=== PATIENT | male | born 1955 | race Caucasian/White ===

== ENCOUNTER 2023-04-05 09:30 | Outpatient (RCR) | payer MEDICARE, BC, SELFPAY | END 2023-04-17 07:38 | disposition home or self-care (01) | PROVIDERS: PCP Family Medicine; Visit Provider Family Medicine | DX: M54.16 Radiculopathy, lumbar region (principal); M51.36 Other intervertebral disc degeneration, lumbar region; M25.551 Pain in right hip; G89.29 Other chronic pain; M25.60 Stiffness of unspecified joint, not elsewhere classified; M62.81 Muscle weakness (generalized); Z51.89 Encounter for other specified aftercare | CPT/HCPCS: 97110; 97140; 97161 ==

== ENCOUNTER 2023-05-01 08:26 | Outpatient (CLI) | payer MEDICARE, BC, SELFPAY | END 2023-05-01 08:27 | disposition home or self-care (01) | LOC: INJ CL 08:28 | PROVIDERS: PCP Family Medicine; Visit Provider Family Medicine | DX: M51.36 Other intervertebral disc degeneration, lumbar region (principal); M54.16 Radiculopathy, lumbar region; M51.26 Other intervertebral disc displacement, lumbar region | CPT/HCPCS: 62323; J0702; Q9966 ==

== ENCOUNTER 2023-07-11 09:00 | Outpatient (RCR) | payer MEDICARE, BC, SELFPAY | END 2023-11-08 23:59 | disposition home or self-care (01) | PROVIDERS: PCP Family Medicine; Visit Provider Internal Medicine | DX: C61 Malignant neoplasm of prostate (principal); N39.41 Urge incontinence; R27.8 Other lack of coordination; Z51.89 Encounter for other specified aftercare | CPT/HCPCS: 97110; 97140; 97162; 97535 ==

== ENCOUNTER 2023-08-23 20:54 | Outpatient (CLI) | payer MEDICARE, BC, SELFPAY | END 2023-08-23 20:55 | disposition home or self-care (01) | LOC: SLEEP 20:56 | PROVIDERS: PCP Family Medicine; Visit Provider Registered Nurse | DX: G47.33 Obstructive sleep apnea (adult) (pediatric) (principal); R09.02 Hypoxemia | CPT/HCPCS: 95811 ==

== ENCOUNTER 2023-10-01 21:55 | Inpatient (IN) | payer MEDICARE, BC, SELFPAY ==
[2023-10-01] VITALS (7 sets, daily range): BP systolic 112–128; BP diastolic 72–83; PULSE 90–107; RESP 14; TEMP 36.6; O2SAT 75–95; BMI 44.5
--- NOTE | 2023-10-01 22:21 | CRLHL7_ITS ---
For Patients: As a result of the Century Cures Act, medical imaging exams and procedure reports are released immediately into your electronic medical record. You may view this report before your referring provider. If you have questions, please contact your health care provider. INDICATION: Chest pain, shortness of breath. TECHNIQUE: Chest 1 view. COMPARISON: 12/18/2021. FINDINGS: Cardiovascular and mediastinum: Heart size and vasculature are normal in caliber and appearance. Lungs and pleural spaces: Bibasilar hazy opacities. No large pleural effusion. No pneumothorax. Bones and soft tissues: No significant findings. IMPRESSION: Bibasilar hazy opacities, favored to represent atelectasis. Dictated by Tremaine Sepulveda MD @ 10/01/2023 11:34:41 PM (Electronically Signed)
--- OUTSIDE RECORDS SUMMARY | 2023-10-01 22:27 | XMS_ITS ---
Author Name Unknown Organization [facility] Address [address] [place] [address] Care Team Providers Care Analytical Clerk Name Role Phone Unavailable Unavailable Unavailable Surgery Details Not on file Complications Check Surgery Details section. Procedure Estimated Blood Loss Check Surgery Details section. Procedure Findings Check Surgery Details section. Procedure Specimens Taken Check Surgery Details section.
--- OUTSIDE RECORDS SUMMARY | 2023-10-01 22:27 | XMS_ITS ---
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 Past Plans No past plan information found. Radiation Treatments * Plan Last Treated On Elapsed Days Fractions Treated Prescribed Fraction Dose Prescribed Total Dose [id number] 03/27/2022 27 20 of 20 300 cGy 6,000 cGy Reference Point Last Treated On Elapsed Days Session Dose Total Dose [id number] 03/27/2022 27 300 cGy 6,000 cGy
--- OUTSIDE RECORDS SUMMARY | 2023-10-01 22:27 | XMS_ITS | Encounter Summary ---
Author Name Unknown Organization [facility] Address [address] [place] [id number] Care Team Providers Care Diesel Engine Tester Name Role Phone Elsewhere, Pcp Primary Care Provider Unavailabl e Encounter Details Date Type Department Care Team (Latest Contact Info) Description 09/10/2023 7:09 AM OPERATIONS PROGRAM MANAGER - 09/10/2023 11:59 PM OPERATIONS PROGRAM MANAGER Hospital Encounter Department of Laboratory Medicine and Pathology, [facility], in [place], [place] [address] [place] [address] Anabel Cunningham P.A.-C., M.S. [address] [place] [address] Primary Malignant Neoplasm Of Prostate (HCC) Discharge Disposition: Home or Self Care Social History Tobacco Use Types Packs/Day Years Used Date Smoking Tobacco: Never Passive Smoke Exposure: Past Smokeless Tobacco: Never Passive Exposure Comments:Pa rents Alcohol Use Standard Drinks/Week Comments Yes 0 (1 standard drink = 0.6 oz pur e alcohol) occasional Humiliation, Afraid, Rape, and Kick questionnair e Answer Date Recorded Within the last year, have y ou been afraid of your partner or ex-partner? No 09/20/2022 Within the last year, have y ou been humiliated or emotionally abused in other ways by your partner or ex-partner? No Within the last year, have y ou been kicked, hit, slapped, or otherwise physically hurt by your partner or ex-partner? No 09/20/2022 Within the last year, have y ou been raped or forced to have any kind of sexual activity by your partner or ex-partner? No 09/20/2022 Social Connection and Isolat ion Panel [NHANES] Answer Date Recorded In a typical week, how many times do you talk on the phone with family, friends, or neighbors? Three times a week 09/20/2022 How often do you get togethe r with friends or relatives? Once a week 09/20/2022 How often do you attend chur ch or judaism services? Patient declined 09/20/2022 Do you belong to any clubs o r organizations such as gnosticism groups, unions, fraternal or athletic groups, or school groups? Yes 09/20/2022 How often do you attend meet ings of the clubs or organizations you belong to? More than 4 times per year 09/20/2022 Are you , , di vorced, , never , or living with a partner? 09/20/2022 AUDIT-C Answer Date Recorded Q1: How often do you have a drink containing alc ohol? 2-4 times a month 09/20/2022 Q2: How many drinks containi ng alcohol do you have on a typical day when you are drinking? 1 or 2 09/20/2022 Q3: How often do you have si x or more drinks on one occasion? Never 09/20/2022 Overall Financial Resource Strain (CARDIA) Answe r Date Recorded How hard is it for you to pa y for the very basics like food, housing, medical care, and heating? Not hard at all 09/20/2022 [facility] of Occupat ional Health - Occupational Stress Questionnaire Answer Date Recorded Do you feel stress - tense, restless, nervous, or anxious, or unable to sleep at night because your mind is troubled all the time - these days? Only a little 09/20/2022 Exercise Vital Sign Answer Date Recorde d On average, how many days pe r week do you engage in moderate to strenuous exercise (like a brisk walk)? 3 days 09/20/2022 On average, how many minutes do you engage in exercise at this level? 20 min 09/20/2022 Hunger Vital Sign Answer Date Recorded Within the past 12 months, y ou worried that your food would run out before you got the money to buy more. Never true 09/20/19 23 Within the past 12 months, t he food you bought just didn't last and you didn't have money to get more. Never true 09/20/2022 PRAPARE - Transportation Answer Date Re corded In the past 12 months, has l ack of transportation kept you from medical appointments or from getting medications? No 08/28 In the past 12 months, has l ack of transportation kept you from meetings, work, or from getting things needed for daily living? No 09/20/2022 Housing Stability Vital Sign Answer Jasson e Recorded In the last 12 months, was t here a time when you were not able to pay the mortgage or rent on time? No 09/20/2022 In the last 12 months, how many places have you lived? 1 09/20/2022 In the last 12 months, was t here a time when you did not have a steady place to sleep or slept in a detention (including now)? No 09/20/2022 Nutrition Answer Date Recorded Nutrition: EVOO Fat Source Yes 09/20 On average, how many serving s of fruits and vegetables do you eat per day (serving size is equal to 1 cup or approximately the size of a tennis ball)? 0-1 09/20/2022 Dental Answer Date Recorded Dental: Regular Dentist Yes 03/12/20 Employment Answer Date Recorded Employment status Retired 09/20/2022 Education Answer Date Recorded What is the highest level of school you have completed or the highest degree you have received? 12th grade 03/12/2022 Sex and Gender Information Value Date Recorded Sex Assigned at Male 03/12/2022 6:57 PM CDT Gender Identity Male 03/12/2022 6:57 PM CDT Sexual Orientation Straight 03/12/2022 6: 57 PM CDT documented as of this encounter Medications at Time of Discharge Medication Sig Dispensed Refills Start Date End Date cholecalciferol, vitamin D3, 25 mcg (1,000 Unit) tablet Take 1 tablet by mouth daily. 0 04/05/2010 gabapentin (NEURONTIN) 300 mg capsule Take 300 mg by mouth at bedtime. 0 02/01/2023 levothyroxine (SYNTHROID, LEVOTHROID) 175 mcg tablet Take 175 mcg by mouth every morning before breakfast. 0 07/31/2022 sildenafiL (Viagra) 100 mg tablet Take 0.5-1 tablets (50-100 mg total) by mouth as needed for erectile dysfunction. 10 tablet 3 09/25/2022 Xarelto 20 mg tablet Take 20 mg by mouth daily with dinner. 0 08/28/2022 documented as of this encounter Plan of Treatment Scheduled Orders Name Type Priority Associated Diagnoses Orde r Schedule PSA (Prostate-Specific Antigen), Diagnostic Lab Routine Primary Malignant Neoplasm Of Prostate (HCC) Once for 1 Occurrences starting 09/10/2023 until 09/10/2023 Testosterone, Total by Mass Spectrometry, Serum Lab Routine Primary Malignant Neoplasm Of Prostate (HCC) Once for 1 Occurrences starting 09/10/2023 until 09/10/2023 documented as of this encounter Visit Diagnoses Diagnosis Primary Malignant Neoplasm Of Prostate (HCC) documented in this encounter Care Teams Diesel Engine Tester Relationship Specialty Start Date End Date Elsewhere, Pcp PCP - General Family Medicine 04/06/23 documented as of this encounter
--- OUTSIDE RECORDS SUMMARY | 2023-10-01 22:27 | XMS_ITS | Referral Summary ---
Author Name Unknown Organization [facility] Address [address] [place] [address] Care Team Providers Care Business Analytics Analyst Name Role Phone Elsewhere, Pcp Primary Care Provider Unavailabl e Source Comments Patient records contain information from all sites at [facility]. For routine questions regarding patient records, call [phone] during business hours, M-F 8:00 AM - 5:00 PM Central Time. Record requests for emergency care only can be directed to [phone] at any time.[facility] Encounters Date Type Department Care Team Description 10/01/2023 Clinical Communication Department of Radiation Oncology in [place], [place] [address] [place] [address] Keith Lua M.D. 09/10/2023 7:09 AM FIELD HAULER - 09/10/2023 11:59 PM FIELD HAULER Hospital Encounter Department of Laboratory Medicine and Pathology, [facility], in [place], [place] [address] [place] [address] Anabel Cunningham P.A.-C., M.S. Primary Malignant Neoplasm Of Prostate (HCC) Discharge Disposition: Home or Self Care 07/02/2023 Orders Only Department of Sleep Medicine in [place], [place] [address] [phone] Chanel Senior APRN, C.N.P., D.N.P., M.S.N. 07/02/2023 Orders Only Department of Internal Medicine in [place], [place] [address] [place] [phone] Chanel Senior APRN, C.N.P., D.N.P., M.S.N. from Last 3 Months Allergies No known active allergies Medications Medication Sig Dispensed Refills Start Date End Date Status cholecalciferol, vitamin D3, 25 mcg (1,000 Unit) tablet Take 1 tablet by mouth daily. 0 04/05/2010 Active Xarelto 20 mg tablet Take 20 mg by mouth daily with dinner. 0 08/28/2022 Active sildenafiL (Viagra) 100 mg tablet Take 0.5-1 tablets (50-100 mg total) by mouth as needed for erectile dysfunction. 10 tablet 3 09/25/2022 Active gabapentin (NEURONTIN) 300 mg capsule Take 300 mg by mouth at bedtime. 0 02/01/2023 Active levothyroxine (SYNTHROID, LEVOTHROID) 175 mcg tablet Take 175 mcg by mouth every morning before breakfast. 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 Hypothyroidism 12/26/2006 Primary Malignant Neoplasm Of Prostate Cancer Staging:Clinical stage from 11/28/2021:Stage IIC(cT1c, cN0, cM0, PSA: 9.4, Grade Group: 3) - Unsigned Immunizations Name Administration Dates Next Due Influenza (IM) Preservative Free 08/02/2009 Influenza TIV (IM) 06/27/2011,06/24/2010, 009 Influenza, Injectable, Mdck, Preservative Free, Quadrivalent 08/19/2021 Influenza, Quadrivalent, Adj uvanted, Preservative Free 06/22/2022 Influenza, Seasonal, Injectable 06/27/2011 Influenza, Unspecified 05/28/2021 PCV20 07/31/2022 Pneumococcal, Unspecified 05/28/2020 RZV (SHINGRIX) 08/04/2019,05/28/2019 Td, (Adult) Unspecified 07/07/1997 Tdap 03/11/2018,04/01/2008 influenza vaccine quad (FLUZONE/FLUARIX) (6 months and older)(PF) 08/09/2020,05/28/2019,07/24/2016,2014 Social History Tobacco Use Types Packs/Day Years Used Date Smoking Tobacco: Never Passive Smoke Exposure: Past Smokeless Tobacco: Never Tobacco Cessation:Counseling Given: Not Answered Passive Exposure Comments:Parents Alcohol Use Standard Drinks/Week Comments Yes 0 [...] week 09/20/2022 How often do you attend [facility] or gnosticism services? Patient declined 09/20/2022 Do you belong to any clubs o r organizations such as presybeterian groups, unions, fraternal or athletic groups, or [...] and heating? Not hard at all 09/20/2022 [facility] [place] of Occupat ional Health - Occupational Stress [...] money to buy more. Never true 09/20/19 Within the past 12 months, t he [...] place to sleep or slept in a senior care (including now)? No 09/20/2022 Nutrition Answer Date [...] Orientation Straight 03/12/2022 6: 57 PM CDT Last Filed Vital Signs Vital Sign Reading Time Taken Comments Blood Pressure 117/73 04/24/2023 2:41 PM CDT Pulse 75 04/24/2023 2:41 PM CDT Temperature 36.7 ??C (98 ??F) 04/24/2023 2:41 PM CDT Respiratory Rate - - Oxygen Saturation - - Inhaled Oxygen Concentration - - Weight 154 kg (339 lb 15.2 oz) 04/24/2023 2:41 P M CDT Height - - Body Mass Index - - Plan of Treatment Not on file Medical Devices Implanted Type Area Construction Analyst Device Identifier Shelf Expiration Date Model / Serial / Lot Eyelid Weight Eyelid Weight Left: Eyelid Description:Weight Mesh Or Patch Mesh or Patch Umbilical Description:Hernia Repair Ocular Lens Ocular Lens Left: Eye Care Teams Business Analytics Analyst Relationship Specialty Start Date End Date Elsewhere, Pcp PCP - General Family Medicine 04/06/23
--- OUTSIDE RECORDS SUMMARY | 2023-10-01 22:27 | XMS_ITS | Encounter Summary ---
Author Name Unknown Organization [facility] Address [address] [place] [address] Care Team Providers Care Compress Trucker Name Role Phone Elsewhere, Pcp Primary Care Provider Unavailabl e Encounter Details Date Type Department Care Team (Late st Contact Info) Description 07/02/2023 Orders Only Department of Internal Medicine in [place], [place] [address] [phone] Chanel Senior APRN, C.N.P., D.N.P., M.S.N. [address] [place] [phone] Social History Tobacco Use Types Packs/Day Years [...] often do you attend chur ch or anglican services? Patient declined 09/20/2022 Do you belong to any clubs o r organizations such as sabianism groups, unions, fraternal or athletic groups, or [...] and heating? Not hard at all 09/20/2022 [facility] [place] of Occupat ional Health - Occupational Stress [...] place to sleep or slept in a care home (including now)? No 09/20/2022 Nutrition Answer Date [...] PM CDT documented as of this encounter Plan of Treatment Not on file documented as of this encounter Visit Diagnoses Not on filedocumented in this encounter Care Teams Compress Trucker Relationship Specialty Start Date End Date Elsewhere, Pcp PCP - General Family Medicine 04/06/23 documented as of this encounter
--- OUTSIDE RECORDS SUMMARY | 2023-10-01 22:27 | XMS_ITS | Encounter Summary ---
Author Name Unknown Organization [facility] Address [address] [place] [address] Care Team Providers Care Delivery Tech Name Role Phone Elsewhere, Pcp Primary Care Provider Unavailabl e Reason for Visit * Appointment Request (Routine) - Closed Specialty Diagnoses / Procedures Referred By Katlin t Referred To Contact Sleep Medicine Referral ID Status Reason Start Date Expiration Date Visits Re quested Visits Authorized [id number] Closed 01/31/2023 01/31/2024 1 1 Encounter Details Date Type Department Care Team (Latest Contact Info) Description 04/24/2023 2:45 PM CDT Comprehensive Visit Department of Sleep Medicine in [place], [place] [address] [phone] Chanel Senior APRN, C.N.P., D.N.P., M.S.N. [address] [phone] Obstructive Sleep Apnea Adult (Primary Dx); Embolus Pulmonary Personal History; Chronic Cough Social History Tobacco Use Types Packs/Day Years [...] 09/20/2022 How often do you attend chur or jewish services? Patient declined 09/20/2022 Do you belong to any clubs o r organizations such as restoration groups, unions, fraternal or athletic groups, or [...] and heating? Not hard at all 09/20/2022 [facility] [place] of Occupat ional Health - Occupational Stress [...] place to sleep or slept in a fpc (including now)? No 09/20/2022 Nutrition Answer Date [...] PM CDT documented as of this encounter Last Filed Vital Signs Vital Sign Reading [...] - - Body Mass Index - - documented in this encounter Patient Instructions * Patient Instructions* Chanel Senior APRN, C.N.Brandi., RellN.P., M.S.N. - 04/24/2023 2:45 PM CDT -Recommend connecting with your primary care provider about cough and response to nebulizer. You likely would benefit from a formal pulmonary function test and possibly chest CT to rule out residual asthma with your history or bronchiectasis since you did have some thickening of the servin of the upper airway on your last chest xray. -Your BiPAP download looks excellent! Residual apneic events are in range. Usage is excellent. Keepup the great work! -Schedule overnight oximetry at your convenience. I'll contact you with results once available. -I'll send updated prescription for supplies to [employer]. -Otherwise follow up in 1 year. documented in this encounter Progress Notes * Chanel Senior APRN, C.N.P., Byron.N.P., M.S.N. - 04/24/2023 2:45 PM CDT SUBJECTIVE CHIEF COMPLAINT / REASON FOR VISIT No chief complaint on file. HISTORY OF PRESENT ILLNESS rAnel Ng is a 67 y.o. male who presents today in followup of his obstructive sleep apnea. He haspreviously followed at an outside facility for this condition. He states that he was originally diagnosed with obstructive sleep apnea in the late . Details surrounding that diagnosis are not available. He was placed on a PAP machine and has been using it since then. 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 He had subsequent collapse of the nasalpassages that required reconstructive surgery and he reports that afterward, perhaps about 4 years ago, he underwent repeat polysomnogram at the [facility] to evaluate how this potentially impacted his sleep apnea. He reports that he was told there was no significant change in his pressureneeds at that time, but he did receive a new machine that did seem to deliver air little differently. He is not aware of any pressure changes since that time. He does report that he was diagnosed with PE and DVT in 2021. He was requiring supplemental oxygen up to 4 L per nasal cannula after that point. He has since discontinued oxygen but has not pursued repeat overnight oximetry without oxygen since then. His current machine is about 4 years old and he was told by his supplier, [employer] in [place],that he would be a candidate for a replacement machine in the summer of 2023. His current machine however was not functioning properly so that is actually being repaired as we speak and he is on a loaner machine. He is using an over the nose style full face mask which he finds to be comfortable. Herecently switched from a large size to a medium-size. The seal seems to be little better but it does seem more tight on the bridge of his nose so he is considering going back to the large size. Air pressure feels comfortable. He feels that he sleeps well at night with his machine. No known snoring through his mask. We were able to run a download report from his loaner machine which shows 100% compliance over the past 26 days with an average daily usage of 8 hours and 12 minutes. BiPAP S is set at 14/9. Median leaks are 4.7 liters/minute with a 95th percentile of 12.7. Residual AHI is 0.3 with 0.2 central episodes. He also states that he has been dealing with a cough for several months. He has been working with his PCP in regards to his swallow, but his daughter had some albuterol and a nebulizer that he tried while he was experiencing the cough. This really gave him good relief. With the use of albuterol hiscoughing has significantly improved. OBJECTIVE Blood pressure 117/73, pulse 75, temperature 36.7 ??C, temperature source Temporal, weight (!) 154 kg. PHYSICAL EXAMINATION General: Alert, pleasant male appearing in no acute distress. Responds appropriately to questions and contributes meaningfully to conversation. He has chronic facial palsy. He is accompanied by his today. ASSESSMENT / PLAN #1 Obstructive Sleep Apnea Adult #2 Embolus Pulmonary Personal History He continues to use and benefit from BiPAP. His compliance is excellent, residual events very low, and he gets good symptomatic relief with therapy. Prescription will be sent to his supplier, [facility] in [place], for replacement supplies. He will be a candidate for a new machine in 2023. We will pursue overnight oximetry with BiPAP in place to ensure resolution of his nocturnal hypoxia afterrecovering from his PE. He is not terribly interested in resuming oxygen should it be needed. #3 Chronic Cough He has had relief with the use of his daughter's albuterol nebulizer. He does not have a personal history of smoking, but does report history of asthma. He also knows that he is deconditioned. Chest x-ray in November showed some thickening of the bronchial servin. Recommended he discuss further with his PCP, as he may benefit from dedicated chest CT or pulmonary function test to rule out bronchiectasis, persistent asthma, or other condition that would be contributing to his cough and potential benefit of nebulized saline or bronchodilator for himself. We will be in touch with his oximetry results once available, otherwise follow- up in 1 year or sooner if needed. A new prescription for supplies will be required annually and insurance will typicallycover a new machine every 5 years. The patient and his verbalized understanding of the plan ofcare and was in agreement. All questions were answered today. documented in this encounter Plan of Treatment Not on file documented as of this encounter Results * PUL Home Overnight Oximetry (06/27/2023 2:28 PM CDT) 06/25/2023 Impressions SONDRA HUNT - 06/28/2023 3:00 PM CDT Overnight oximetry was performed on room air without the use of an assisted breathing device. ??The baseline saturation is reduced. ??There was increased oscillatory variation about the baseline with further periodic oscillatory desaturations, with a minimum saturation of 72%. Impression: ??Abnormal baseline suggestive of a gas exchange abnormality. ??The pattern is suggestive of a concurrent sleep related breathing disorder. Physician: Jackie Chinchilla M.D. [id number] Narrative Procedure Note Jackie Chinchilla M.D. - 06/28/2023 IMPRESSION: Overnight oximetry was performed on room air without the use of anassisted breathing device. The baseline saturation is reduced. There wasincreased oscillatory variation about the baseline with further periodicoscillatory desaturations, with a minimum saturation of 72%. Impression: Abnormal baseline suggestive of a gas exchange abnormality.The pattern is suggestive of a concurrent sleep related breathingdisorder. Physician: Jcakie Chinchilla M.D. [id number] Chanel Senior APRN, C.N.P., D.N.P., M.S. N. PFT ORDERABLES [facility] documented in this encounter Visit Diagnoses Diagnosis Obstructive Sleep Apnea Adult- Primary Embolus Pulmonary Personal History Chronic Cough Obstructive Sleep Apnea Adult documented in this encounter Care Teams Delivery Tech Relationship Specialty Start Date End Date Elsewhere, Pcp PCP - General Family Medicine 04/06/23 documented as of this encounter
--- OUTSIDE RECORDS SUMMARY | 2023-10-01 22:27 | XMS_ITS | Encounter Summary ---
Author Name Unknown Organization [facility] Address [address] [place] [address] Care Team Providers Care Developmental Specialist Name Role Phone Elsewhere, Pcp Primary Care Provider Unavailabl e Reason for Referral * Outpatient (Routine) - Authorized Specialty Diagnoses / Procedures Referred By Katlin flores Referred To Contact Radiation Oncology Anabel Cunningham P.A.-C., M.S. [address] [place] [phone] Keith Lua M.D. [address] [place] [phone] Referral ID Status Reason Start Date Expiration Date V isits Requested Visits Authorized [id number] Authorized 04/10/2023 04/09/2026 1 1 Scheduling Instructions PSA mail-in kit prior * Outpatient (Routine) - Closed Specialty Diagnoses / Procedures Referred By Katlin t Referred To Contact Radiation Oncology Anabel Cunningham P.A.-C., M.S. [address] [place] [phone] [facility] Region Referral ID Status Reason Start Date Expiration Date Visits Re quested Visits Authorized [id number] Closed 09/25/2022 09/24/2025 1 1 Scheduling Instructions PSA prior at [facility] Reason for Visit * Outpatient (Routine) - Closed Specialty Diagnoses / Procedures Referred By Contac t Referred To Contact Radiation Oncology Anabel Cunningham P.A.-C., M.S. 200 [place] [phone] [facility] Region Referral ID Status Reason Start Date Expiration Date Visits Re quested Visits Authorized [id number] Closed 09/25/2022 09/24/2025 1 1 Encounter Details Date Type Department Care Team (Latest Contact Info) Description 04/10/2023 10:44 AM CDT - 04/12/2023 1:18 PM CDT Hospital Encounter Department of Radiation Oncology in [place], [place] [address] [place] [address] Keith Lua M.D. 200 [place] [phone] Primary Malignant Neoplasm Of Prostate (HCC) (Primary Dx) Social History Tobacco Use Types Packs/Day Years [...] How often do you attend chur or congregation services? Patient declined 09/20/2022 Do you belong to any clubs o r organizations such as sabianist groups, unions, fraternal or athletic groups, or [...] and heating? Not hard at all 09/20/2022 [facility] [place] of Occupat ional Health - Occupational Stress [...] place to sleep or slept in a [facility] (including now)? No 09/20/2022 Nutrition Answer Date [...] Sign Reading Time Taken Comments Blood Pressure 136/69 04/10/2023 10:52 AM CDT Pulse 79 04/10/2023 10:52 AM CDT Temperature 36.7 ??C (98 ??F) 04/10/2023 10:52 AM CDT Respiratory Rate - - Oxygen Saturation - - Inhaled Oxygen Concentration - - Weight 154 kg (340 lb 6.2 oz) 04/10/2023 10:52 A M CDT Height - - Body Mass Index - - documented in this encounter Medications at Time of Discharge [...] by mouth daily with dinner. 0 08/28/2022 amoxicillin (AMOXIL) 500 mg capsule TAKE 2 CAPSULES (1,000 MG) BY MOUTH 2 TIMES DAILY FOR 10 DAYS. 0 01/16/2022 04/24/2023 calcium carbonate-vitamin D3 1,250 mg (500 mg calcium)-5 mcg (200 Unit) per tablet Take 2 tablets by mouth daily with breakfast. 0 04/24/2023 Eliquis 5 mg tablet TAKE 1 TABLET (5 MG) BY MOUTH 2 TIMES DAILY. 0 01/16/2022 04/24/2023 levothyroxine (SYNTHROID, LEVOTHROID) 150 mcg tablet levothyroxine 150 mcg tablet TAKE 1 TABLET BY MOUTH ONCE DAILY BEFORE BREAKFAST 0 05/28/2019 04/24/2023 omeprazole (PriLOSEC) [address] capsule Take 10 mg by mouth every morning before breakfast. 0 04/24/2023 omeprazole (PriLOSEC) [address] capsule Take 40 mg by mouth every morning before breakfast. 0 02/14/2023 04/24/2023 documented as of this encounter Progress Notes * Anabel Cunningham P.A.-C., M.S. - 04/10/2023 11:00 AM CDT SUBJECTIVE DIAGNOSIS 1. Primary Malignant Neoplasm Of Prostate (HCC) SUPERVISED BY: Keith Lua M.D. ([id number]) HISTORY OF PRESENT ILLNESS Mr. 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 He completed definitive radiotherapy with a 6 month course of ADT on March 27, 2022. 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 Pathology demonstrated perineural invasion and positive margin. Local lymph nodes resected were n egative. Neutron radiation therapy to a dose of 19.2 NGy in 16 fractions from November 10, 1997 through December 04, 1997 at [facility]. Primary Malignant Neoplasm Of Prostate (HCC) 02/21/2017 Other 02/21/2017: PSA 3.46 ng/mL 02/23/2018: PSA 4.41 ng/mL 10/08/2018: PSA 4.05 ng/mL 08/06/2020: PSA 6.39 ng/mL 08/15/2021: PSA 9.41 ng/mL 09/26/2021: PSA 9.41 ng/mL 04/22/2018 Critical Imaging MRI of the prostate demonstrated mild prostatomegaly with the prostate gland measuring 5.8 x 4.2 x 3.7 cm for an estimated volume of 45 mL. Stigmata of acute on chronic prostatitis. No suspicious lesions detected. 10/03/2021 Other Urology consultation with Dr. Prince Escobar. physical examination was normal. 10/11/2021 Critical Imaging MRI of the prostate demonstrated a stable exam. Mild prostatomegaly with BPH and prior prostatitis.No suspicious lesions detected. No arden transcapsular, natalee, or skeletal disease in the pelvis. 11/28/2021 Biopsy/Pathology TRUS biopsy of the prostate was performed by Dr. Escobar. Prostate volume was approximately 40 cc. PATHOLOGY: Adenocarcinoma, Meridian 4+3=7 (grade group 3) was identified in the right lateral mid (5-10%), right lateral base (50%, perineural invasion present), and left medial apex (50%). Rare atypical acini (KWADWO) was identified in the right lateral apex and left lateral mid. The remaining biopsies demonstrated benign prostatic tissue. 3 of 12 cores were positive. 01/05/[address] Escobar who discussed treatment options. The patient received a Lupron 45 mg (6month) injection. Referral to Radiation Oncology. 02/28/2022 - 03/27/2022 Radiation Therapy Radiation therapy to the prostate and proximal seminal vesicles to a dose of 6000 cGy in 20 fractions. Radiation Therapy Treatment Details (02/28/2022 - 03/27/2022) Site: Prostate Technique: IMRT Goal: Curative Planned Treatment Start Date: 02/28/2022 06/15/2022 Other 06/15/2022: PSA 0.11 ng/mL 09/18/2022: PSA <0.1 ng/mL 10/03/2022: PSA <0.1 ng/mL. Testosterone total 26 ng/dL. 03/30/2023: PSA 0.11 ng/mL INTERVAL HISTORY The patient was seen and examined today with Dr. Lua. The patient reports fatigue rated 7/10 in severity. He reports stable urination overall. He reportsurinary urgency. He has performed Kegel exercises occasionally without noticeable improvement. He reports urinary incontinence approximately one time per week. He does not wear a pad. He reports thathis urination is overall manageable at this time. He denies dysuria or hematuria. He has nocturia x2. He averages two bowel movements per day. He denies rectal bleeding. He reports taking Metamucil.He reports stable body aches and denies new bone pain. He reports that tried taking sildenafil two to three times and he was able to have an erection and intercourse with the medication. AUA SYMPTOM INDEX: 01/25/22: 4 09/25/22: 6 (0, 1, 1, 1, 1, 0, 2) 04/10/23: 17 (3, 3, 4, 2, 3, 0, 2) IIEF-5 QUESTIONNAIRE: 01/25/22: 5 09/25/22: 5 (1, 1, 1, 1, 1) - severe erectile dysfunction 04/10/23: 10 (2, 2, 2, 2, 2) - moderate erectile dysfunction REVIEW OF SYSTEMS Review of systems was negative except as documented above. PATIENT REPORTED SYMPTOM SCREEN FATIGUE (Scale: 0 = no fatigue; 10 = worst fatigue you can imagine): 7 PAIN (Scale: 0 = no pain; 10 = worst pain you can imagine): 3 OVERALL QUALITY OF LIFE (Scale: 0 = as bad as can be; 10 = as good as can be): 5 OBJECTIVE BP 136/69 (BP Location: Right arm, Patient Position: Sitting, Cuff Size: Large) Pulse 79 Temp 36.7 ??C (Temporal) Wt (!) 154 kg PHYSICAL EXAM GENERAL: Alert and oriented in no apparent distress. 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 We reviewed his recent PSAresult of 0.11 ng/mL. He reports stable urination with incontinence one time per week on average. We discussed the option of referral for pelvic floor retraining, but he declined at this time. We reviewed the recommendation for continued PSA monitoring every 6 months at this time. The patient was agreeable to use of a mail-in PSA kit, which he will take to [facility] in [place]. I will order for a PSA and testosterone lab draw to be done in 6 months. The patient will be contacted with theresults. We will then plan on continued PSA monitoring every 6 months, with the patient being contac meredith with the result by our care team, and then a follow-up visit to be scheduled here in 2 years, March 2025. The patient will contact us with questions or concerns. He verbally expressed his understanding of the plan. EDUCATION Ready to learn, no apparent learning barriers were identified; learning preferences include listening. Explained diagnosis and treatment plan; patient expressed understanding of the content. I personally spent 26 minutes in care of the patient today. Time includes both non face to face andface to face patient care. Signed by: Anabel Cunningham P.A.-C., M.S. 04/10/2023 11:38 AM CDT [facility] [address] [place] [address] Associated attestation - Keith Lua M.D. - 04/12/2023 1:18 PM CDT I saw and evaluated the patient and participated in the caro portions of the service. I reviewed thedocumentation of Anabel Cunningham P.A.-C. and agree with the findings and plan. The patient appears well on exam. He returns in 1 year follow-up after completion of definitive radiotherapy for prostate cancer that he finished on March 27, 2022. He has urinary incontinence. I am referring him for pelvic floor retraining here in [place]. His PSA is 0.11 ng/mL. We will monitor his PSA every 6 months via mail-in kit and see him again at his 3 year anniversary from treatment completion. He and his wifeverbalized satisfaction with this plan. I have spent 10 minutes caring for this patient including [id number] and dki-idsu-io-face time. Signed by: Keith Lua M.D. 04/12/23 1:18 PM CDT [facility] [place] documented in this encounter Miscellaneous Notes * Addendum Note - Megan Retana C.NJosey - 04/10/2023 11:00 AM CDTEncounter addended by: Megan Retana C.N.ANeeraj on: 04/12/2023 1:23 PM Actions taken: Letter saved documented in this encounter Plan of Treatment Scheduled Orders Name Type Priority Associated Diagnoses Orde r Schedule PSA (Prostate-Specific Antigen), Diagnostic Lab Routine Primary Malignant Neoplasm Of Prostate (HCC) Expected: 10/11/2023 (Approximate), Expires: 04/09/2024 Testosterone, Total by Mass Spectrometry, Serum Lab Routine Primary Malignant Neoplasm Of Prostate (HCC) Expected: 10/11/2023 (Approximate), Expires: 07/11/2024 PSA (Prostate-Specific Antigen), Diagnostic Lab Routine Primary Malignant Neoplasm Of Prostate (HCC) Expected: 04/10/2024 (Approximate), Expires: 07/03/2024 PSA (Prostate-Specific Antigen), Diagnostic Lab Routine Primary Malignant Neoplasm Of Prostate (HCC) Expected: 10/08/2024 (Approximate), Expires: 03/10/2025 PSA (Prostate-Specific Antigen), Diagnostic Lab Routine Primary Malignant Neoplasm Of Prostate (HCC) Expected: 04/10/2025 (Approximate), Expires: 06/18/2025 Scheduled Referrals Name Type Priority Associated Diagnoses Order Schedule Radiation Oncology office visit (clinic) Outpatient Referral Routine Once for 1 Occurrences starting 04/10/2023 until 04/10/2023 Radiation Oncology office visit (clinic) Outpatient Referral Routine Expected: (Approximate), Expires: 05/15/2025 documented as of this encounter Visit Diagnoses Diagnosis Primary Malignant Neoplasm Of Prostate (HCC)- Primary documented in this encounter Care Teams Developmental Specialist Relationship Specialty Start Date End Date Elsewhere, Pcp PCP - General Family Medicine 04/06/23 documented as of this encounter
--- OUTSIDE RECORDS SUMMARY | 2023-10-01 22:27 | XMS_ITS | Encounter Summary ---
Author Name Unknown Organization [facility] Address [address] [place] [address] Care Team Providers Care Barrel Painter Name Role Phone Elsewhere, Pcp Primary Care Provider Unavailabl e Encounter Details Date Type Department Care Team (Late st Contact Info) Description 10/01/2023 Clinical Communication Department of Radiation Oncology in [place], [place] [address] [place] [address] Keith Lua M.D. [address] [place] [phone] Social History Tobacco Use Types Packs/Day Years [...] How often do you attend chur or zoroastrian services? Patient declined 09/20/2022 Do you belong to any clubs o r organizations such as quaker groups, unions, fraternal or athletic groups, or [...] and heating? Not hard at all 09/20/2022 [facility] of Occupat ional Health [...] place to sleep or slept in a residential (including now)? No 09/20/2022 Nutrition Answer Date [...] PM CDT documented as of this encounter Miscellaneous Notes * Telephone Encounter - Melanie Winters - 10/01/2023 1:06 PM CST Patient had a mail in test kit sent to him and he attempted to go to the [facility] in [place] to have his blood drawn but they do not do them there. Patient is wanting a new order placed for the [facility] in [place] so he can make an appointment tohave it drawn. S AND MARKETING SPECIALIST documented in this encounter Plan of Treatment Scheduled Orders Name Type Priority Associated Diagnoses Orde r Schedule PSA (Prostate-Specific Antigen), Diagnostic Lab Routine Primary Malignant Neoplasm Of Prostate (HCC) Expected: 10/08/2023 (Approximate), Expires: 12/29/2024 documented as of this encounter Visit Diagnoses Diagnosis Primary Malignant Neoplasm Of Prostate (HCC)- Primary documented in this encounter Care Teams Barrel Painter Relationship Specialty Start Date End Date Elsewhere, Pcp PCP - General Family Medicine 04/06/23 documented as of this encounter
--- OUTSIDE RECORDS SUMMARY | 2023-10-01 22:27 | XMS_ITS | Encounter Summary ---
Author Name Unknown Organization [facility] Address [address] [place] [address] Care Team Providers Care Bullet Assembly Press Operator Name Role Phone Elsewhere, Pcp Primary Care Provider Unavailabl e Encounter Details Date Type Department Care Team (Late st Contact Info) Description 07/02/2023 Orders Only Department of Sleep Medicine in [place], [place] [address] [phone] Chanel Senior APRN, C.N.P., D.N.P., M.S.N. [address] [place] [phone] Social History Tobacco Use Types Packs/Day [...] often do you attend chur ch or cheondoism services? Patient declined 09/20/2022 Do you belong to any clubs o r organizations such as mu-ism groups, unions, fraternal or athletic groups, or [...] and heating? Not hard at all 09/20/2022 [facility] [place] of Occupat ional Health - Occupational Stress [...] place to sleep or slept in a alf (including now)? No 09/20/2022 Nutrition Answer Date [...] on filedocumented in this encounter Care Teams Bullet Assembly Press Operator Relationship Specialty Start Date End Date Elsewhere, Pcp PCP - General Family Medicine 04/06/23 documented as of this encounter
--- OUTSIDE RECORDS SUMMARY | 2023-10-01 22:27 | XMS_ITS | Encounter Summary ---
Author Name Unknown Organization [facility] Address [address] [place] [address] Care Team Providers Care Shiatsu Therapist Name Role Phone Elsewhere, Pcp Primary Care Provider Unavailabl e Encounter Details Date Type Department Care Team (Latest Contact Info) Description 06/25/2023 1:45 PM CDT - 06/25/2023 11:59 PM CDT Hospital Encounter Department of Pulmonary Medicine in [place], [place] [address] [phone] Chanel Senior APRN, C.N.P., D.N.P., M.S.N. [address] [phone] Obstructive Sleep Apnea Adult Discharge Disposition: Home or Self Care Social [...] often do you attend chur ch or episcopalian services? Patient declined 09/20/2022 Do you belong to any clubs o r organizations such as hoahaoism groups, unions, fraternal or athletic groups, or [...] and heating? Not hard at all 09/20/2022 [facility] of Occupat ional Health - Occupational Stress [...] place to sleep or slept in a [place] [facility] [place] (including now)? No 09/20/2022 Nutrition Answer Date [...] on file documented as of this encounter Procedures Procedure Name Priority Date/Time Associated Diagnosis Comments PUL HOME OVERNIGHT OXIMETRY Routine 06/27/2023 2:28 PM CDT Obstructive Sleep Apnea Adult documented in this encounter Results * PUL Home Overnight Oximetry (06/27/2023 2:28 PM CDT) 06/25/2023 Impressions AMARO GILL HUNT - 06/28/2023 3:00 PM CDT Overnight [...] related breathing disorder. Physician: Jackie Chinchilla M.D. [id number] Narrative Procedure Note Jackie Chinchilla M.D. - [...] of a concurrent sleep related breathingdisorder. Physician: Jackie Chinchilla M.D. [id number] Chanel Senior APRN, C.N.P., D.N.P., M.S. N. PFT ORDERABLES SONDRA HUNT documented in this encounter Visit Diagnoses Diagnosis Obstructive Sleep Apnea Adult documented in this encounter Care Teams Shiatsu Therapist Relationship Specialty Start Date End Date Elsewhere, Pcp PCP - General Family Medicine 04/06/23 documented as of this encounter
--- OUTSIDE RECORDS SUMMARY | 2023-10-01 22:27 | XMS_ITS | Clinical Summary ---
Author Name Unknown Organization [facility] Address [address] [place] [address] Care Team Providers Care Rotor Casting Machine Operator Name Role Phone Elsewhere, Pcp Primary Care Provider Unavailabl e Source Comments Patient records contain information from all sites at [facility]. For routine questions regarding patient records, call [phone] during business hours, M-F 8:00 AM - 5:00 PM Central Time. Record requests for emergency care only can be directed to [phone] at any time.[facility] Allergies No known active allergies Medications Medication [...] PSA: 9.4, Grade Group: 3) - Unsigned Encounters Date Type Department Care Team Description 10/01/2023 Clinical Communication Department of Radiation Oncology in [place], [place] [address] [place] [address] Keith Lua M.D. 09/10/2023 7:09 AM CMS EXPERT - 09/10/2023 11:59 PM CMS EXPERT Hospital Encounter Department of Laboratory Medicine and Pathology, [facility], in [place], [place] [address] [place] [address] Anabel Cunningham P.A.-C., M.S. Primary Malignant Neoplasm Of Prostate (HCC) Discharge Disposition: Home or Self Care 07/02/2023 Orders Only Department of Sleep Medicine in [place], [place] [address], [place] [address] Chanel Senior APRN, C.N.P., D.N.P., M.S.N. 07/02/2023 Orders Only Department of Internal Medicine in [place], [place] [address] [place] [address] Chanel Senior APRN, C.N.P., D.N.P., M.S.N. from Last 3 Months Immunizations Name Administration Dates Next Due Influenza [...] week 09/20/2022 How often do you attend [facility] or orthodox services? Patient declined 09/20/2022 Do you belong to any clubs o r organizations such as pentecostalism groups, unions, fraternal or athletic groups, or [...] and heating? Not hard at all 09/20/2022 [facility] [place] of Occupat ional Health - Occupational Stress [...] place to sleep or slept in a custodial (including now)? No 09/20/2022 Nutrition Answer Date [...] Mass Index - - Plan of Treatment Health Maintenance Due Date Last Done Comments CT Colonography 1957 Cologuard 1955 Colonoscopy 1957 Colorectal Cancer Surveillance 1955 Hepatitis C Screening 1955 Depression Screening (Annual PHQ-2) 08/27/2023 Fall Risk Screen (Annual) 08/27/2023 Thyroid Stimulating Hormone (TSH) test for thyroid function 07/25/2024 07/25/2023, 10/03/2022, 07/25/2022, Additional history exists Fasting Glucose for Diabetes Screening 07/25/2026 07/25/2023, 07/25/2022, 08/15/2021, Additional history exists DTaP,Tdap,and Td Vaccines (3 - Td or Tdap) 03/11/2028 03/11/2018, 04/01/2008, 07/07/1997 Zoster Vaccines Completed 08/04/2019, 05/28/2019 Pneumococcal vaccine (65+ years) Completed 07/31/2022, 05/28/2020 Influenza Vaccine Completed 05/17/2023, , 08/19/2021, Additional history exists COVID-19 Vaccine Completed 06/01/2023, , 07/12/2021, Additional history exists HPV Vaccines Aged Out No longer eligi ble based on patient's age to complete this topic Medical Devices Implanted Type Area [facility] Of Pediatric Urology Device Identifier Shelf Expiration Date Model / Serial / Lot Eyelid Weight Eyelid Weight Left: Eyelid Description:Weight Mesh Or Patch Mesh or Patch Umbilical Description:Hernia Repair Ocular Lens Ocular Lens Left: Eye Care Teams Rotor Casting Machine Operator Relationship Specialty Start Date End Date Elsewhere, Pcp PCP - General Family Medicine 04/06/23
--- OUTSIDE RECORDS SUMMARY | 2023-10-01 22:28 | XMS_ITS | Encounter Summary ---
Author Name Unknown Organization [facility] Address [address] [place] [address] Care Team Providers Care Review Manager Name Role Phone Unavailable Primary Care Provider Unavailabl e Encounter Details Date Type Department Care Team (Late st Contact Info) Description 01/19/2023 Clinical Communication Department of Radiation Oncology in [place], [place] [address] [place] [address] Keith Lua M.D. [address] [place] [phone] Social History Tobacco Use Types Packs/Day Years Used Date Smoking Tobacco: Never Smokeless Tobacco: Never Alcohol Use Standard Drinks/Week Comments Yes 0 [...] How often do you attend chur or episcopalian services? Patient declined 09/20/2022 Do you belong to any clubs o r organizations such as latter day groups, unions, fraternal or athletic groups, or [...] and heating? Not hard at all 09/20/2022 [facility] [place] of Occupat ional Health - Occupational Stress [...] place to sleep or slept in a nursing home (including now)? No 09/20/2022 Nutrition Answer [...]
--- OUTSIDE RECORDS SUMMARY | 2023-10-01 22:28 | XMS_ITS | Encounter Summary ---
Author Name Unknown Organization [facility] Address [address] [place] [address] Care Team Providers Care Sludge Filtration Attendant Name Role Phone Elsewhere, Pcp Primary Care Provider Unavailabl e Reason for Visit * Reason Onset Date Comments Pre-visit Intake 04/06/2023 Encounter Details Date Type Department Care Team (Latest Contact Info) Description 04/06/2023 9:30 AM CDT Clinical Communication Virtual Review in [place], [place] [address] [place] [address] Pre-visit Intake Social History Tobacco Use Types Packs/Day Years Used Date Smoking Tobacco: Never Passive Smoke Exposure: Past Smokeless Tobacco: Never Tobacco Cessation:Counseling Given: No Passive Exposure Comments:Parents Alcohol Use Standard Drinks/Week [...] often do you attend chur ch or yarsani services? Patient declined 09/20/2022 Do you belong to any clubs o r organizations such as zoroastrian groups, unions, fraternal or athletic groups, or [...] and heating? Not hard at all 09/20/2022 [facility] - Occupational Stress [...] place to sleep or slept in a penitentiary (including now)? No 09/20/2022 Nutrition Answer Date [...] on filedocumented in this encounter Care Teams Sludge Filtration Attendant Relationship Specialty Start Date End Date Elsewhere, Pcp PCP - General Family Medicine 04/06/23 documented as of this encounter
--- OUTSIDE RECORDS SUMMARY | 2023-10-01 22:28 | XMS_ITS | Encounter Summary ---
Author Name Unknown Organization [facility] Address [address] [place] [address] Care Team Providers Care Doubling Machine Operator Name Role Phone David Pennington Primary Care Provider [phone] Dharmesh Montes MD Unavailable [phone] Dharmesh Montes MD Unavailable [phone] Encounter Details Date Type Department Care Team (Latest Contact Info) Description 11/28/2022 Travel Social History Tobacco Use Types Packs/Day Years Used Date Smoking Tobacco: Never Smokeless Tobacco: Never Alcohol Use Standard Drinks/Week Comments Yes 0 (1 standard drink = 0.6 oz pur e alcohol) one per week PHQ-2 Answer Date Recorded PHQ-2 Score 0 07/11/2022 Sex and Gender Information Value Date Recorded Sex Assigned at Not on file Gender Identity Not on file Sexual Orientation Not on file COVID-19 Exposure Response Date Recorded In the last 10 days, have yo u been in contact with someone who was confirmed or suspected to have Coronavirus/COVID-19? No / Unsure 11/28/2022 12:25 PM CDT documented as of this encounter Plan of Treatment Not on file documented as of this encounter Visit Diagnoses Not on filedocumented in this encounter Care Teams Doubling Machine Operator Relationship Specialty Start Date End Date David Pennington PCP - General 01/25/11 Dharmesh Montes MD 420 [facility] 396 [place], [place] [address] Otolaryngology 05/20/21 Dharmesh Montes MD [address] [place] [address] [id number] Assigned Surgical Provider 07/15/22 documented as of this encounter
--- OUTSIDE RECORDS SUMMARY | 2023-10-01 22:28 | XMS_ITS | Encounter Summary ---
Author Name Unknown Organization [facility] Address [address] [place] [address] Care Team Providers Care Crop Farm Workers Name Role Phone David Pennington Primary Care Provider [phone] Dharmesh Montes MD Unavailable Dharmesh Montes MD Unavailable [phone] Encounter Details Date Type Department Care Team (Late st Contact Info) Description 11/28/[address] [place] [address] Val Meyers, HOG CUTTER [address] [place] [address] Social History Tobacco Use Types Packs/Day Years [...] encounter Miscellaneous Notes * Telephone Encounter - Juve Beth - 11/28/2022 5:29 PM CDT This patient needs to be schedule for a 30min video visit in 2 weeks time (around 12/12/22). ??This can be scheduled with any of the swallow providers. documented in this encounter Plan of Treatment Not on file documented as of this encounter Visit Diagnoses Not on filedocumented in this encounter Care Teams Crop Farm Workers Relationship Specialty Start Date End Date David Pennington PCP - General 01/25/11 Dharmesh Montes MD [address] [place] [address] Otolaryngology 05/20/21 Dharmesh Montes MD [address] [place] [address] Assigned Surgical Provider 07/15/22 documented as of this encounter
--- OUTSIDE RECORDS SUMMARY | 2023-10-01 22:28 | XMS_ITS | Encounter Summary ---
Author Name Unknown Organization [facility] Address [address] [place] [address] Care Team Providers Care Forge Shop Supervisor Name Role Phone David Pennington Primary Care Provider [phone] Dharmesh Montes MD Unavailable [phone] Dharmesh Montes MD Unavailable [phone] Encounter Details Date Type Department Care Team (Latest Contact Info) Description 07/24/2023 Travel Social History Tobacco Use Types Packs/Day Years Used Date Smoking Tobacco: Never Smokeless Tobacco: Never Alcohol Use Standard Drinks/Week Comments Yes 0 (1 standard drink = 0.6 oz pur e alcohol) one per week PHQ-2 Answer Date Recorded PHQ-2 Score 0 07/11/2022 Adolescent Education Answer Date Record ed Getting School Help Needed Not on file 05/19 Sex and Gender Information Value Date Recorded Sex Assigned at Not on file Gender Identity Not on file Sexual Orientation Not on file documented as of this encounter Plan of Treatment Not on file documented as of this encounter Visit Diagnoses Not on filedocumented in this encounter Care Teams Forge Shop Supervisor Relationship Specialty Start Date End Date David Pennington PCP - General 01/25/11 Dharmesh Montes MD [address] [place] [address] 396 [place], [place] [address] Otolaryngology 05/20/21 Dharmesh Montes MD 420 [facility] [address] [place] [address] Assigned Surgical Provider 07/15/22 documented as of this encounter
--- OUTSIDE RECORDS SUMMARY | 2023-10-01 22:28 | XMS_ITS | Encounter Summary ---
Author Name Unknown Organization [facility] Address [address] [place] [address] Care Team Providers Care Collar Shaper Operator Name Role Phone David Pennington Primary Care Provider [phone] Dharmesh Montes MD Unavailable [phone] Dharmesh Montes MD Unavailable [phone] Reason for Visit * Diagnostic Imaging XR (Routine) - Closed Specialty Diagnoses / Procedures Referred By Contac t Referred To Contact Diagnoses Adenoid cystic carcinoma (H) Procedures X-ray Chest 2 Views Dharmesh Montes MD [address] [place] [address] Referral ID Status Reason Start Date Expiration Date Visits Re quested Visits Authorized [id number] Closed 07/11/2022 07/11/2023 1 1 Encounter Details Date Type Department Care Team (Latest Contact Info) Description 11/28/2022 2:20 PM CDT Ancillary Procedure [facility] Xray [address] 1st [place] [address] Dharmesh Montes MD [address] [place] [address] Adenoid cystic carcinoma (H) Social History Tobacco Use Types Packs/Day Years [...] Procedure Name Priority Date/Time Associated Diagnosis Comments XR CHEST 2 VIEWS Routine 11/28/2022 12:5 2 PM CDT Adenoid cystic carcinoma (H) documented in this encounter Results * X-ray Chest 2 Views (11/28/2022 12:52 PM CDT) Anatomical Region Laterality Modality Chest Digital Radiogra phy Impressions 11/28/2022 1:00 PM CDT IMPRESSION: Elevated left hemidiaphragm with distended stomach again noted. Central bronchial wall thickening unchanged and may indicate age-indeterminate airway inflammation or other reactive airway disease. Lungs do not appear severely hyperinflated. GLENN MANCILLA MD Narrative 11/28/2022 1:00 PM CDT Chest 2 views INDICATION: Adenoid cystic carcinoma COMPARISON: 08/09/2021 Findings: Mild elevation left hemidiaphragm with distended gastric bubble again present. Heart size normal. Costophrenic angles are reasonably sharp bilaterally. Mild bronchial wall thickening centrally unchanged. No new suspicious opacities. Procedure Note Glenn Mancilla MD - 11/28/2022 Chest 2 views INDICATION: Adenoid cystic carcinoma COMPARISON: 08/09/2021 Findings: Mild elevation left hemidiaphragm with distended gastric bubble again present. Heart size normal. Costophrenic angles are reasonably sharp bilaterally. Mild bronchial wall thickening centrally unchanged. No new suspicious opacities. IMPRESSION: Elevated left hemidiaphragm with distended stomach again noted. Central bronchial wall thickening unchanged and may indicate age-indeterminate airway inflammation or other reactive airway disease. Lungs do not appear severely hyperinflated. GLENN MANCILLA MD Dharmesh Montes MD IMG DIAGNOSTIC IM AGING ORDERABLES documented in this encounter Visit Diagnoses Diagnosis Adenoid cystic carcinoma (H) Other malignant neoplasm without specification of site documented in this encounter Care Teams Collar Shaper Operator Relationship Specialty Start Date End Date David Pennington PCP - General 01/25/11 Dharmesh Montes MD [address] [place] [address] Otolaryngology 05/20/21 Dharmesh Montes MD [address] [place] [address] 585485 Assigned Surgical Provider 07/15/22 documented as of this encounter
--- OUTSIDE RECORDS SUMMARY | 2023-10-01 22:28 | XMS_ITS | Encounter Summary ---
Author Name Unknown Organization [facility] Address [address] [place] [address]. [place] [address] Care Team Providers Care Latex Thread Machine Operator Name Role Phone Dvaid Pennington Primary Care Provider Dharmesh Montes MD Unavailable [phone] Dharmesh Montes MD Unavailable Encounter Details Date Type Department Care Team (Late st Contact Info) Description 05/28/2023 Telephone [facility] [address] 4th [place] [address] Dharmesh Montes MD [address] [address] Social History Tobacco Use Types Packs/Day [...] on filedocumented in this encounter Care Teams Latex Thread Machine Operator Relationship Specialty Start Date End Date David Pennington PCP - General 01/25/11 Dharmesh Montes MD 420 [facility] 396 [place], [place] [address] Otolaryngology 05/20/21 Dharmesh Montes MD 420 [facility] 396 [place], [place] 4[address] Assigned Surgical Provider 07/15/22 documented as of this encounter
--- OUTSIDE RECORDS SUMMARY | 2023-10-01 22:28 | XMS_ITS | Encounter Summary ---
Author Name Unknown Organization [facility] Address [address] [place] [address]. [place] [address] Care Team Providers Care Editorial Manager Name Role Phone David Pennington Primary Care Provider [phone] Dharmesh Montes MD Unavailable [phone] Dharmesh Montes MD Unavailable Encounter Details Date Type Department Care Team (Late st Contact Info) Description 05/18/2023 Telephone [facility] [address] 4[address] [place] [address] Dharmesh Montes MD [address] [address] Social History Tobacco Use Types [...] on filedocumented in this encounter Care Teams Editorial Manager Relationship Specialty Start Date End Date Davdi Pennington PCP - General 01/25/11 Dharmesh Montes MD 420 [facility] 396 [place], [place] [address] Otolaryngology 05/20/21 Dharmesh Montes MD 420 [facility] 396 [place], [place] [address] Assigned Surgical Provider 07/15/22 documented as of this encounter
--- OUTSIDE RECORDS SUMMARY | 2023-10-01 22:28 | XMS_ITS | Encounter Summary ---
Author Name Unknown Organization [facility] Address [address] [place] [address] Care Team Providers Care Silk Brusher Name Role Phone David Pennington Primary Care Provider Libertad Russ MD Unavailable [phone] Dharmesh Montes MD Unavailable [phone] Dharmehs Montes MD Unavailable [phone] Reason for Visit * Reason Onset Date Comments Previsit 02/08/2021 Encounter Details Date Type Department Care Team (Late st Contact Info) Description 02/08/2021 PRE VISIT [facility] Preoperative Assessment Center [address] 5th [place] [address] Gina Juarez APRN [facility] [address] [place] [address] Previsit Social History Tobacco Use Types Packs/Day Years Used Date Smoking Tobacco: Never Smokeless Tobacco: Never Alcohol Use Standard Drinks/Week Comments Yes 0 (1 standard drink = 0.6 oz pur e alcohol) one per week PHQ-2 Answer Date Recorded PHQ-2 Score 0 09/10/2018 Sex and Gender Information Value Date Recorded Sex Assigned at Not on file Gender Identity Not on file Sexual Orientation Not on file documented as of this encounter Plan of Treatment Not on file documented as of this encounter Visit Diagnoses Not on filedocumented in this encounter Care Teams Silk Brusher Relationship Specialty Start Date End Date David Pennington PCP - General 01/25/11 Libertad Russ MD [address] [phone] Assigned Surgical Provider 06/18/20 Dharmesh Montes MD [address] [place] [address] [id number] Otolaryngology 05/20/21 Dharmesh Montes MD [address] [place] [address] 735805 Assigned Surgical Provider 07/15/22 documented as of this encounter
--- OUTSIDE RECORDS SUMMARY | 2023-10-01 22:28 | XMS_ITS | Encounter Summary ---
Author Name Unknown Organization [facility] Address [address] [place] [address] Care Team Providers Care Digital Forensics Examiner Name Role Phone David Pennington Primary Care Provider Dharmesh Montes MD Unavailable [phone] Dharmesh Montes MD Unavailable [phone] Encounter Details Date Type Department Care Team (Latest Contact Info) Description 06/07/2023 Travel Social History Tobacco Use Types Packs/Day [...] on filedocumented in this encounter Care Teams Digital Forensics Examiner Relationship Specialty Start Date End Date David Pennington PCP - General 01/25/11 Dharmesh Montes MD [address] [place] [address] 396 [place], [place] [address] Otolaryngology 05/20/21 Dharmesh Montes MD 420 [facility] 396 [place] [address] Assigned Surgical Provider 07/15/22 documented as of this encounter
--- OUTSIDE RECORDS SUMMARY | 2023-10-01 22:28 | XMS_ITS | Referral Summary ---
Author Name Unknown Organization [facility] Address [address] [place] [address] Care Team Providers Care Egg Caser Name Role Phone David Pennington Primary Care Provider [phone] Dharmesh Montes MD Unavailable [phone] Dharmesh Montes MD Unavailable [phone] Encounters Date Type Department Care Team Description 07/24/2023 Travel 07/24/2023 11:35 AM GUARD RAIL INSTALLER Office Visit [facility] [address] 4th [place] [address] Dharmesh Montes MD Adenoid cystic carcinoma (H) (Primary Dx) from Last 3 Months Allergies Active Allergy Reactions Criticality Noted Date Comments No Known Drug Allergy 04/11/2011 Medications Medication Sig Dispensed Refills Start Date End Date Status VITAMIN D PO Take by mouth. 0 Active levothyroxine (SYNTHROID/LEVOTHROI D) 150 MCG tablet Take 175 mcg by mouth 0 05/28/2019 Active Respiratory Therapy Supplies (CARETOUCH CPAP & BIPAP HOSE) [facility] BIPAP machine for home use at pressure: 14/9 cm/h2O with 4 liters of oxygen , Heated humidifier x 1 every 5 years, Humidifier chamber x 1 every 6 months, Full face mask with cushion x 1 every 3 months, Full face cushion 1 every month, 1 headgear 1 every 6 month, Heated tubing x 1 every 3 months, Filters: Disposable filter x 2 a month, non-disposable filters x1 every 6 months; chinstrap 1 every 6 months Length of Need: 99 months, Frequency of use: Daily 0 02/15/2021 Active mupirocin (BACTROBAN) 2 % external ointmentIndications: Nasal valve collapse Apply topically 2 times daily 22 g 3 02/23/2021 Active Additional Information Patient not taking.Reported on 07/11/2022 ondansetron (ZOFRAN-ODT) 4 MG ODT tabIndications:Nasal valve collapse Take 1 tablet (4 mg) by mouth every 6 hours as needed for nausea or vomiting 5 tablet 0 02/23/2021 Active Additional Information Patient not taking.Reported on 07/11/2022 sodium chloride (OCEAN) 0.65 % nasal sprayIndications:Christofer al valve collapse [place] 2 sprays into both nostrils 4 times daily 30 mL 3 02/23/2021 Active oxyCODONE (ROXICODONE) 5 MG tabletIndications:Ac [place] post-operative pain Take 1 tablet (5 mg) by mouth every 4 hours as needed for moderate to severe pain 15 tablet 0 02/23/2021 Active Additional Information Patient not taking.Reported on 07/11/2022 acetaminophen (TYLENOL) 325 MG tabletIndications:Ac [place] post-operative pain Take 2 tablets (650 mg) by mouth every 4 hours as needed for mild pain 100 tablet 0 02/25/2021 Active apixaban ANTICOAGULANT (ELIQUIS) 5 MG tablet Take 5 mg by mouth 2 times daily 0 12/27/2021 Active ipratropium (ATROVENT) 0.03 % nasal sprayIndications:VMR (vasomotor rhinitis) [place] 2 sprays into both nostrils every 12 hours 30 mL 1 07/11/2022 Active albuterol (PROAIR HFA/PROVENTIL HFA/VENTOLIN HFA) 108 (90 Base) MCG/ACT inhaler Inhale 1-2 puffs into the lungs 0 05/17/2023 Active ADVAIR DISKUS 100-50 MCG/ACT inhaler 0 06/26/2023 Active XARELTO ANTICOAGULANT 20 MG TABS tablet TAKE ONE TABLET BY MOUTH ONCE DAILY WITH EVENING MEAL 0 Active Active Problems Problem Noted Date Diagnosed Date Brow ptosis, bilateral 09/06/2020 Overview: Added automatically from request for surgery [id number] Visual field defect 09/06/2020 Overview: Added automatically from request for surgery [id number] 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 Overview: Added automatically from request for surgery [id number] Morbid obesity 07/08/2020 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 06/18/2020 Overview: Added automatically from request for surgery [id number] Nasal obstruction 06/18/2020 Overview: Added automatically from request for surgery [id number] Nasal deformity 06/18/2020 Overview: Added automatically from request for surgery [id number] Facial paralysis 04/14/2020 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 Social History Tobacco Use Types Packs/Day Years Used Date Smoking Tobacco: Never Smokeless Tobacco: Never Tobacco Cessation:Counseling Given: Not Answered Alcohol Use Standard Drinks/Week Comments Yes 0 [...] on file Sexual Orientation Not on file Last Filed Vital Signs Vital Sign Reading Time Taken Comments Blood Pressure 133/84 07/11/2022 8:42 AM GUARD RAIL INSTALLER Pulse 88 07/11/2022 8:42 AM GUARD RAIL INSTALLER Temperature 36.9 ??C (98.4 ??F) 03/02/2021 1 0:40 AM CDT Respiratory Rate 16 02/23/2021 7:32 AM CDT Oxygen Saturation 95% 07/11/2022 8:42 AM GUARD RAIL INSTALLER Inhaled Oxygen Concentration - - Weight 153.2 kg (337 lb 12.8 oz) 07/11/2022 8:42 AM GUARD RAIL INSTALLER Height 182.9 cm (6') 07/11/2022 8:42 AM GUARD RAIL INSTALLER Body Mass Index 45.81 07/11/2022 8:42 AM GUARD RAIL INSTALLER Plan of Treatment Not on file Medical Devices Implanted Type Area Roaster Operator Device Identifier Shelf Expiration Date Model / Serial / Lot Eye Imp Lid [place] Weight 1.4 Gram Thin Profile Implanted:Qty: 1 on 05/04/2016 by Michael Brooks MD at [facility] Left: Eyelid [employer] 07/26/2016 [id number] / / [id number] Costal Cartilage Implanted:Qty: 1 on 02/22/2021 by Libertad Russ MD at [facility] Bilateral: Nose [employer]LETAL [employer]. 02/05/2024 [id number] / [id number] / [id number] Advance Directives For more information, please contact: [phone] Latest Code Status on File Code Status Date Activated Date Inactivated Comments Full Code 02/22/2021 5:30 PM 02/23/2021 11:53 AM All basic and advanced life-sustaining interventions are performed as appropriate Question Answer Comments Code status determined by: Discussion with patient/ legal decision maker Care Teams Egg Caser Relationship Specialty Start Date End Date David Pennington PCP - General 01/25/11 Dharmesh Montes MD [address] [facility] [address] [address] Otolaryngology 05/20/21 Dharmesh Montes MD [address] [facility] [address] [address] Assigned Surgical Provider 07/15/22
--- OUTSIDE RECORDS SUMMARY | 2023-10-01 22:28 | XMS_ITS | Encounter Summary ---
Author Name Unknown Organization [facility] Address [address] [place] [address] Care Team Providers Care Leather Dresser Name Role Phone David Pennington Primary Care Provider [phone] Dharmesh Montes MD Unavailable [phone] Dharmesh Montes MD Unavailable [phone] Reason for Visit * Diagnostic Imaging XR (Routine) - Closed Specialty Diagnoses / Procedures Referred By Contac t Referred To Contact Diagnoses Adenoid cystic carcinoma (H) Procedures XR Video Swallow with CLIENT CARE SPECIALIST or OT - Order with Speech Therapy Referral Dharmesh Montes MD [address] [place] [address] Referral ID Status Reason Start Date Expiration Date Visits Re quested Visits Authorized [id number] Closed 08/14/2022 08/14/2023 1 1 Encounter Details Date Type Department Care Team (Latest Contact Info) Description 11/28/2022 1:00 PM CDT Ancillary Procedure [facility] Imaging Center Xray [place] [id number] [facility] [address] 1st [place] [address] Dharmesh Montes MD [address] [place] [address] Adenoid cystic carcinoma (H) Social History [...] Name Priority Date/Time Associated Diagnosis Comments XR VIDEO SWALLOW WITH CLIENT CARE SPECIALIST OR OT Routine 11/28/2022 1:49 PM CDT Adenoid cystic carcinoma (H) documented in this encounter Results * XR Video Swallow with CLIENT CARE SPECIALIST or OT - Order with Speech Therapy Referral (11/28/2022 1:49 PM CDT) Anatomical Region Laterality Modality Radio Fluoroscop y Impressions 11/28/2022 2:09 PM CDT Impression: 1. Penetration without aspiration with thin liquids. No penetration or aspiration with the remaining consistencies. 2. Please see the speech pathologist report for further details. 3. Tertiary esophageal contractions consistent with some degree of esophageal dysmotility. I have personally reviewed the examination and initial interpretation and I agree with the findings. WINDY ART MD Narrative 11/28/2022 2:09 PM CDT Examination: Modified Barium Swallow Study with Speech Pathology 11/28/2022 1:49 PM Comparison: None. History: Remote history of head and neck cancer status post treatment with dysphagia. Fluoroscopy time: 3.2 minute(s). Findings: Under fluoroscopic guidance, the patient was given orally administered barium of varying consistencies in the presence of the speech pathology service. Penetration without aspiration with thin liquids, minimally improved with chin tuck maneuver. No penetration or aspiration with mildly thick, pudding, or cookie consistencies. Increased oral, vallecular, and pyriform sinus residue with thicker consistencies. Barium tablet delayed in the vallecula with eventual clearance. No significant bolus lateralization on the AP view. Tertiary esophageal contractions noted. Procedure Note Windy Art MD - 04/04/2023 Examination: Modified Barium Swallow Study with Speech Pathology 11/28/2022 1:49 PM Comparison: None. History: Remote history of head and neck cancer status post treatment with dysphagia. Fluoroscopy time: 3.2 minute(s). Findings: Under fluoroscopic guidance, the patient was given orally administered barium of varying consistencies in the presence of the speech pathology service. Penetration without aspiration with thin liquids, minimally improved with chin tuck maneuver. No penetration or aspiration with mildly thick, pudding, or cookie consistencies. Increased oral, vallecular, and pyriform sinus residue with thicker consistencies. Barium tablet delayed in the vallecula with eventual clearance. No significant bolus lateralization on the AP view. Tertiary esophageal contractions noted. Impression: 1. Penetration without aspiration with thin liquids. No penetration or aspiration with the remaining consistencies. 2. Please see the speech pathologist report for further details. 3. Tertiary esophageal contractions consistent with some degree of esophageal dysmotility. I have personally reviewed the examination and initial interpretation and I agree with the findings. WINDY ART MD Dharmesh Montes MD IMG DIAGNOSTIC IM AGING ORDERABLES documented in this encounter Visit Diagnoses Diagnosis Adenoid cystic carcinoma (H) Other malignant neoplasm without specification of site documented in this encounter Administered Medications Inactive Administered Medications - up to 3 most recent administrations Medication Order MAR Action Action Date Dose Rate Site barium sulfate (EZ-DISK) tablet 700 mg 700 mg, Oral, ONCE, On Sun11/28/22 at 1330, For 1 dose $Given 11/28/2022 1:44 PM CDT 700 mg barium sulfate (VARIBAR THIN Liquid) 40 % oral suspension 20 g 20 g (50 mL), Oral, ONCE, On e 11/28/22 at 1330, For 1 dose $Given 11/28/2022 1:44 PM CDT 20 g barium sulfate (VARIBAR) 40 % pudding/paste 15 mL 15 mL, Oral, ONCE, On Sun11/28/22 at 1330, For 1 dose $Given 11/28/2022 1:44 PM CDT 15 mLs barium sulfate 40% (VARIBAR NECTAR) oral suspension 15 mL Oral, ONCE, On Sun11/28/22 at 1330, For 1 dose $Given 11/28/2022 1:44 PM CDT 15 mLs documented in this encounter Care Teams Leather Dresser Relationship Specialty Start Date End Date David Pennington PCP - General 01/25/11 Dharmesh Montes MD [address] [place] [address] [id number] Otolaryngology 05/20/21 Dharmesh Montes MD [address] [place] [address] [id number] Assigned Surgical Provider 07/15/22 documented as of this encounter
--- OUTSIDE RECORDS SUMMARY | 2023-10-01 22:28 | XMS_ITS | Encounter Summary ---
Author Name Unknown Organization [facility] Address [address] [place] [address] Care Team Providers Care Preparation Supervisor Freezing Name Role Phone David Pennington Primary Care Provider [phone] Dharmesh Montes MD Unavailable [phone] Dharmesh Montes MD Unavailable [phone] Reason for Visit * Diagnostic Imaging CT Scan (Routine) - Closed Specialty Diagnoses / Procedures Referred By Contac t Referred To Contact Diagnoses Postoperative state Procedures CT Soft tissue neck w contrast Dharmesh Montes MD [address] [place] [id number] Referral ID Status Reason Start Date Expiration Date Visits Re quested Visits Authorized [id number] Closed 07/11/2022 07/11/2023 1 1 Encounter Details Date Type Department Care Team (Latest Contact Info) Description 11/28/2022 2:00 PM CDT Ancillary Procedure [facility] [address] 1[address] [place] [address] Dharmesh Montes MD [address] [place] [address] Postoperative state Social History Tobacco Use Types Packs/Day Years [...] Procedure Name Priority Date/Time Associated Diagnosis Comments CT SOFT TISSUE NECK W CONTRAST Routine 11/28/2022 2:38 PM CDT Postoperative state documented in this encounter Results * CT Soft tissue neck w contrast (11/28/2022 2:38 PM CDT) Radiologist flags #2 RADIOLOGY RESULTS Anatomical Region Laterality Modality Neck, SUBRAD CT NEURO, SUBRA D CT NEURO, UMP CT NEURO, RAD CT Computed Tomography Impressions 11/28/2022 3:36 PM CDT IMPRESSION: 1. Left parotidectomy without suspicious findings to suggest recurrence. No pathologic lymphadenopathy. 2. Right nonspecific buccal mucosal subcutaneous soft tissue density. Although this could represent scar tissue from prior injury or procedure, clinical correlation and physical examination is recommended. [Consider Follow Up: #2] This report will be copied to the [facility] to ensure a provider acknowledges the finding. Access Center is available Sunday through Sunday 8am-3:30 pm. I have personally reviewed the examination and initial interpretation and I agree with the findings. SANDEEP BAEZA MD Narrative 11/28/2022 3:36 PM CDT EXAM: CT SOFT TISSUE NECK W CONTRAST ??11/28/2022 2:38 PM HISTORY: Postoperative state ? COMPARISON: CT neck 12/19/2021, MRI 10/21/2020 TECHNIQUE: Following intravenous administration of nonionic iodinated contrast medium, thin section helical CT images were obtained from the skull base down to the level of the aortic arch. ??Axial, coronal and sagittal reformations were performed with 2-3 mm slice thickness reconstruction. Images were reviewed in soft tissue, lung and bone windows. CONTRAST: Isovue 370 90cc FINDINGS: Left parotidectomy. No suspicious postcontrast enhancing lesion near the surgical site. Within the right buccal mucosa/submucosa there is an ill-defined 26 x 18 mm soft tissue enhancing density (series 6, image 23) with overlying skin retraction (series 2, image 70). No focal nasopharyngeal, oropharyngeal, hypopharyngeal, or glottic mucosal space abnormality. Normal tongue base. Submandibular glands are atrophic bilaterally. No lymphadenopathy. Normal thyroid gland. Carotid bulb calcifications. Patent cervical vasculature; no high grade arterial stenosis. No suspicious osseus lesion. No high grade spinal canal stenosis. Clear paranasal sinuses and mastoid air cells. Stable ill-defined hyperattenuating subcutaneous density within the right cheek (image 18, series 4) that was also present on the prior study but appears slightly more prominent, although this could be related to technique. Foreign body obscuring the left globe which was present on the prior study. Otherwise the imaged skull base, intracranial and orbital structures are within normal limits. No suspicious finding in the visualized superior mediastinum/thorax. Clear lung apices. Procedure Note Sandeep Baeza MD - 11/28/2022 EXAM: CT SOFT TISSUE NECK W CONTRAST 11/28/2022 2:38 PM HISTORY: Postoperative state COMPARISON: CT neck 12/19/2021, MRI 10/21/2020 TECHNIQUE: Following intravenous administration of nonionic iodinated contrast medium, thin section helical CT images were obtained from the skull base down to the level of the aortic arch. Axial, coronal and sagittal reformations were performed with 2-3 mm slice thickness reconstruction. Images were reviewed in soft tissue, lung and bone windows. CONTRAST: Isovue 370 90cc FINDINGS: Left parotidectomy. No suspicious postcontrast enhancing lesion near the surgical site. Within the right buccal mucosa/submucosa there is an ill-defined 26 x 18 mm soft tissue enhancing density (series 6, image 23) with overlying skin retraction (series 2, image 70). No focal nasopharyngeal, oropharyngeal, hypopharyngeal, or glottic mucosal space abnormality. Normal tongue base. Submandibular glands are atrophic bilaterally. No lymphadenopathy. Normal thyroid gland. Carotid bulb calcifications. Patent cervical vasculature; no high grade arterial stenosis. No suspicious osseus lesion. No high grade spinal canal stenosis. Clear paranasal sinuses and mastoid air cells. Stable ill-defined hyperattenuating subcutaneous density within the right cheek (image 18, series 4) that was also present on the prior study but appears slightly more prominent, although this could be related to technique. Foreign body obscuring the left globe which was present on the prior study. Otherwise the imaged skull base, intracranial and orbital structures are within normal limits. No suspicious finding in the visualized superior mediastinum/thorax. Clear lung apices. IMPRESSION: 1. Left parotidectomy without suspicious findings to suggest recurrence. No pathologic lymphadenopathy. 2. Right nonspecific buccal mucosal subcutaneous soft tissue density. Although this could represent scar tissue from prior injury or procedure, clinical correlation and physical examination is recommended. [Consider Follow Up: #2] This report will be copied to the [facility] to ensure a provider acknowledges the finding. Access Center is available Sunday through Sunday 8am-3:30 pm. I have personally reviewed the examination and initial interpretation and I agree with the findings. SANDEEP BAEZA MD Dharmesh Montes MD IMG CT ORDERABLES documented in this encounter Visit Diagnoses Diagnosis Postoperative state Other postprocedural status documented in this encounter Administered Medications Inactive Administered Medications - up to 3 most recent administrations Medication Order MAR Action Action Date Dose Rate Site ct saline Intravenous, 100 mL, ONCE, On Sun11/28/22 at 1430, For 1 dose, This entry is for use by Radiology to intermittently used as a flush in patients receiving a CT scan. $Given 11/28/2022 2:31 PM CDT 100 mLs iopamidol (ISOVUE-370) solution 90 mL 90 mL, Intravenous, ONCE, On Sun11/28/22 at 1430, For 1 dose $Given 11/28/2022 2:30 PM CDT 90 mLs documented in this encounter Care Teams Preparation Supervisor Freezing Relationship Specialty Start Date End Date David Pennington PCP - General 01/25/11 Dharmesh Montes MD [address] [facility] [address] [place] [address] Otolaryngology 05/20/21 Dharmesh Montes MD [address] [facility] [address] [place] [address] Assigned Surgical Provider 07/15/22 documented as of this encounter
--- OUTSIDE RECORDS SUMMARY | 2023-10-01 22:28 | XMS_ITS | Clinical Summary ---
Author Name Unknown Organization [facility] Address [address] [place] [address] Care Team Providers Care Internal Communications Specialist Name Role Phone David Pennington Primary Care Provider [phone] Dharmesh Montes MD Unavailable [phone] Dharmesh Montes MD Unavailable [phone] Allergies Active Allergy Reactions Criticality Noted Date Comments No Known Drug Allergy 04/11/2011 Medications Medication Sig Dispensed Refills Start Date End Date Status VITAMIN D PO Take by mouth. 0 Active levothyroxine (SYNTHROID/LEVOTHROI D) 150 MCG tablet Take 175 mcg by mouth 0 05/28/2019 Active Respiratory Therapy Supplies (CARETOUCH CPAP & BIPAP HOSE) [facility] BIPAP machine for home use at pressure: [...] 0.65 % nasal sprayIndications:Christofer al valve collapse Parker 2 sprays into both nostrils 4 times daily 30 mL 3 02/23/2021 Active oxyCODONE (ROXICODONE) 5 MG tabletIndications:Ac eriberto post-operative pain Take 1 tablet (5 mg) by mouth every 4 hours as needed for moderate to severe pain 15 tablet 0 02/23/2021 Active Additional Information Patient not taking.Reported on 07/11/2022 acetaminophen (TYLENOL) 325 MG tabletIndications:Ac eriberto post-operative pain Take 2 tablets (650 mg) by mouth every 4 hours as needed for mild pain 100 tablet 0 02/25/2021 Active apixaban ANTICOAGULANT (ELIQUIS) 5 MG tablet Take 5 mg by mouth 2 times daily 0 12/27/2021 Active ipratropium (ATROVENT) 0.03 % nasal sprayIndications:VMR (vasomotor rhinitis) Parker 2 sprays into both nostrils every 12 [...] Overview: Added automatically from request for surgery [id number] Visual field defect 09/06/2020 Overview: Added automatically from request for surgery [id number] 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 Overview: Added automatically from request for surgery [id number] Morbid obesity 07/08/2020 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 06/18/2020 Overview: Added automatically from request for surgery [id number] Nasal obstruction 06/18/2020 Overview: Added automatically from request for surgery [id number] Nasal deformity 06/18/2020 Overview: Added automatically from request for surgery [id number] Facial paralysis 04/14/2020 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 Encounters Date Type Department Care Team Description 07/24/2023 11:35 AM ASP NET SOFTWARE DEVELOPER Office Visit [facility] [address] [place] [address] Dharmesh Montes MD Adenoid cystic carcinoma (H) (Primary Dx) 07/24/2023 Travel from Last 3 Months Family History Medical History Relation Comments Glaucoma No family hx of Macular Degeneration No family hx of Social History Tobacco Use Types Packs/Day Years [...] Comments Blood Pressure 133/84 07/11/2022 8:42 AM ASP NET SOFTWARE DEVELOPER Pulse 88 07/11/2022 8:42 AM ASP NET SOFTWARE DEVELOPER Temperature 36.9 ??C (98.4 ??F) 03/02/2021 1 0:40 AM CDT Respiratory Rate 16 02/23/2021 7:32 AM CDT Oxygen Saturation 95% 07/11/2022 8:42 AM ASP NET SOFTWARE DEVELOPER Inhaled Oxygen Concentration - - Weight 153.2 kg (337 lb 12.8 oz) 07/11/2022 8:42 AM ASP NET SOFTWARE DEVELOPER Height 182.9 cm (6') 07/11/2022 8:42 AM ASP NET SOFTWARE DEVELOPER Body Mass Index 45.81 07/11/2022 8:42 AM ASP NET SOFTWARE DEVELOPER Plan of Treatment Health Maintenance Due Date Last Done Comments ADVANCE CARE PLANNING 1955 ANNUAL REVIEW OF HM ORDERS 1957 CT COLONOGRAPHY 1957 FIT 1957 FLEX SIG 1957 TSH W/FREE T4 REFLEX 1957 sDNA (Cologuard) 1957 HEPATITIS C SCREENING 1975 LIPID 1997 RSV VACCINE ( & 60+) (1 - 1-dose 60+ series) 2017 FALL RISK ASSESSMENT 2022 MEDICARE ANNUAL WELLNESS VISIT 07/31/2023 07/31/2022, 08/09/2020 PHQ-2 (once per calendar year) 2023 07/11/2022, 08/09/2021, 05/18/2021, Additional history exists GLUCOSE 02/24/2024 02/23/2021, 01/26, 02/22/2021 DTAP/TDAP/TD IMMUNIZATION (4 - Td or Tdap) 03/11/2028 03/11/2018, 04/01/2008, 07/07/1997, Additional history exists COLONOSCOPY 10/25/2030 10/25/2020, 01/2021, 03/27/2017, Additional history exists COLORECTAL CANCER SCREENING 10/25/2030 ZOSTER IMMUNIZATION Completed 08/04/2019, 9 Pneumococcal Vaccine: 65+ Years Completed 07/31/2022, 05/28/2020 INFLUENZA VACCINE Completed 05/17/2023, , 08/19/2021, Additional history exists COVID-19 Vaccine Completed 06/01/2023, , 07/12/2021, Additional history exists HPV IMMUNIZATION Aged Out No longer e ligible based on patient's age to complete this topic IPV IMMUNIZATION Aged Out No longer e ligible based on patient's age to complete this topic MENINGITIS IMMUNIZATION Aged Out No l onger eligible based on patient's age to complete this topic RSV MONOCLONAL ANTIBODY Aged Out No l onger eligible based on patient's age to complete this topic Medical Devices Implanted Type Area Electromechanical Equipment Assembler Device Identifier Shelf Expiration Date Model / Serial / Lot Eye Imp Lid [place] Weight 1.4 Gram Thin Profile Implanted:Qty: 1 on 05/04/2016 by Michael Brooks MD at [facility] Left: Eyelid [employer] 07/26/2016 [id number] / / [id number] Costal Cartilage Implanted:Qty: 1 on 02/22/2021 by Libertad Russ MD at [facility] Bilateral: Nose MUSCULOSKELETAL TRANSPLANT FOUNDAT. 02/05/2024 [id number] / [id number] / [id number] Advance Directives For more information, please contact: [phone] Latest Code Status on File Code Status Date Activated Date Inactivated Comments Full Code 02/22/2021 5:30 PM 02/23/2021 11:53 AM All basic and advanced life-sustaining interventions are performed as appropriate Question Answer Comments Code status determined by: Discussion with patient/ legal decision maker Care Teams Internal Communications Specialist Relationship Specialty Start Date End Date David Pennington PCP - General 01/25/11 Dharmesh Montes MD [address] [facility] [address] [place] [address] Otolaryngology 05/20/21 Dharmesh Montes MD [address] [facility] [address] [place], [place] [id number] Assigned Surgical Provider 07/15/22
--- OUTSIDE RECORDS SUMMARY | 2023-10-01 22:28 | XMS_ITS | Encounter Summary ---
Author Name Unknown Organization [facility] Address [address] [place] [address] Care Team Providers Care Drying Supervisor Name Role Phone David Pennington Primary Care Provider Dharmesh Montes MD Unavailable [phone] Dharmesh Montes MD Unavailable Reason for Visit * Therapeutic Services (Routine) - Closed Specialty Diagnoses / Procedures Referred By Contcatarino t Referred To Contact Diagnoses Adenoid cystic carcinoma (H) Dharmesh Montes MD [address] [address] Referral ID Status Reason Start Date Expiration Date V isits Requested Visits Authorized [facility] FINANCE MANAGER([id number]) Closed 08/14/2022 08/14/[phone] Encounter Details Date Type Department Care Team (Latest Contact Info) Description 11/28/2022 1:00 PM CDT Therapy Visit [facility] [address] [facility] 4th [place] [address] Dharmesh Montes MD [address] [address] Lizeth Craig, COMMERCIAL FINANCE MANAGER [facility] [phone] Oropharyngeal dysphagia (Primary Dx); Adenoid cystic carcinoma (H) Social History Tobacco [...] PM CDT documented as of this encounter Progress Notes * Lizeth Craig, COMMERCIAL FINANCE MANAGER - 11/28/2022 2:30 PM CDT Images from the original note were not included. Speech-Language Pathology Department [facility]ATION [facility] VIDEO SWALLOW STUDY RESULTS 11/28/22 1300 Retread Technician Retread Technician Present No General Information Type Of Visit Initial Start Of Care Date 11/24/22 Referring Physician Dharmesh Montes MD Orders Evaluate And Treat Orders Comment Video swallow study Medical Diagnosis Adenoid cystic carcinoma, Dysphagia Onset Of Illness/injury Or Date Of Surgery 08/14/22 Precautions/limitations No Known Precautions/limitations Hearing WFL for conversational speech production Pertinent History of Current Problem/OT: Additional Occupational Profile Info Arnel Ng is a 67year old male with a 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 Rodriguez. 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 Pt was seen for a video swallow study this date after c/o dysphagia at a recent ENT clinic visit. At that time, pt reported coughing up thick mucus ~30 minutes after meals and difficulty with swallowing pills. Additionally, pt has a history of a VFSS occuring in November 2021, and demonstrated deep penetration with no aspiration. Of note, patient is undergoing radiationfor prostate cancer. Pt reports that he feels his swallow has worsened over the years. Respiratory Status Room air Prior Level Of Function Swallowing Prior Level Of Function Comment Regular textures and thin liquids General Observations Pt is pleasant and cooperative; pt presents with his . Patient/family Goals Goals not formally stated at the time of evaluation. Clinical Swallow Evaluation Oral Musculature anomalies present Structural Abnormalities present (L facial paralysis with limited eye closure) Dentition present and adequate;other (see comments) (Several missing) Mucosal Quality dry Oral Labial Strength and Mobility impaired retraction;impaired seal;impaired coordination;impaired pursing Lingual Strength and Mobility impaired anterior elevation Buccal Strength and Mobility impaired Laryngeal Function Cough;Throat clear;Swallow;Voicing initiated Additional evaluation(s) completed today Yes Rationale for completing additional evaluation View pharyngeal phase and r/o aspiration. VFSS Evaluation VFSS Additional Documentation Yes VFSS Eval: Radiology Radiologist [facility] Life Director Views Taken left lateral;A/P Physical Location of Procedure [facility]2 VFSS Eval: Thin Liquid Texture Trial Mode of Presentation, Thin Liquid cup;straw;self-fed Order of Presentation 1, 2, 3, 8, 10, 12, 13, 16 (AP) Preparatory Phase Poor bolus control Oral Phase, Thin Liquid Premature pharyngeal entry;Residue in oral cavity Pharyngeal Phase, Thin Liquid Residue in valleculae;Residue in pyriform sinus;Delayed swallow reflex;Pharyngeal wall coating Rosenbek's Penetration Aspiration Scale: Thin Liquid Trial Results 3 - contrast remains above the vocal cords, visible residue remains (penetration) Successful Strategies Trialed During Procedure, Thin Liquid other (see comments) (Chin tuck trialed) Diagnostic Statement Premature pharyngeal entry with reduced BOT contraction and reduced epiglotticinversion. Poor contact between arytenoids and epiglottic petiole. Contrast refluxed up to nasopharynx and nasal cavity upon subsequent swallows; this is increased with increased volume. Persistent penetration; no aspiration. Chin tuck did not eliminate penetration. VFSS Eval: Mildly Thick Liquids Mode of Presentation cup;self-fed Order of Presentation 4, 5 Preparatory Phase WFL Oral Phase Residue in oral cavity;Premature pharyngeal entry Pharyngeal Phase Delayed swallow reflex;Pharyngeal wall coating;Residue in valleculae;Residue in pyriform sinus Rosenbek's Penetration Aspiration Scale 3 - contrast remains above the vocal cords, visible residueremains (penetration) VFSS Eval: Puree Solid Texture Trial Mode of Presentation, Puree spoon;self-fed Order of Presentation 6, 7, 17 (AP) Preparatory Phase Poor bolus control Oral Phase, Puree Effortful AP movement;Residue in oral cavity;Premature pharyngeal entry Pharyngeal Phase, Puree Delayed swallow reflex;Pharyngeal wall coating;Residue in valleculae;Residue in pyriform sinus Rosenbek's Penetration Aspiration Scale: Puree Food Trial Results 1 - no aspiration, contrast does not enter airway Successful Strategies Trialed During Procedure, Puree hard swallow Diagnostic Statement Moderate to severe residue remaining along the BOT to the valleculae. Minimal amounts noted along the lateral chanels. No penetration or aspiration. VFSS Eval: Regular Texture Trial (Solid) Mode of Presentation self-fed Order of Presentation 9, 11, 14 & 15 (barium tablet) Preparatory Phase WFL Oral Phase Residue in oral cavity Pharyngeal Phase Residue in valleculae;Residue in pyriform sinus;Pharyngeal wall coating Rosenbek's Penetration Aspiration Scale 1 - no aspiration, contrast does not enter airway Successful Strategies Trialed During Procedure hard swallow Diagnostic Statement Moderate to severe residue remaining along the BOT to the valleculae. Mild amounts noted along the posterior pharyngeal wall. No penetration or aspiration. Residue reduces with asecond swallow as well as liquid wash. Residue does not fully clear. No penetration or aspiration. Tablet retrained in the valleculae and eventually cleared to the pharynx. Swallow Compensations Swallow Compensations Alternate viscosity of consistencies;Effortful swallow;Pacing;Reduce amounts;Multiple swallow Educational Assessment Barriers to Learning No barriers Esophageal Phase of Swallow Patient reports or presents with symptoms of esophageal dysphagia Yes Esophageal sweep performed during today???s vidofluoroscopic exam Please refer to radiologist's report for details;Yes General Therapy Interventions Planned Therapy Interventions Dysphagia Treatment Dysphagia treatment Oropharyngeal exercise training;Instruction of safe swallow strategies;Compensatory strategies for swallowing Swallow Eval: Clinical Impressions Skilled Criteria for Therapy Intervention Skilled criteria met. Treatment indicated. Dysphagia Outcome Severity Scale (ELIZABETH) Level 4 - ELIZABETH Treatment Diagnosis Mild to moderate oropharyngeal dysphagia Diet texture recommendations Regular diet;Thin liquids (level 0) Rehab Potential good, to achieve stated therapy goals Demonstrates Need for Referral to Another Service other (see comments) (GI service) Therapy Frequency other (see comments) (follow up 1-2x) Predicted Duration of Therapy Intervention (days/wks) up to 12 weeks Anticipated Discharge Disposition home Risks and Benefits of Treatment have been explained. Yes Patient, family and/or staff in agreement with Plan of Care Yes Clinical Impression Comments Pt presents with mild to moderate oropharyngeal dysphagia characterized by weakness likely related to history of radiation. Oral mechanism exam significant for facial weakness and reduced strength. Premature pharyngeal entry with reduced BOT contraction and reduced epiglottic inversion was noted. Poor contact between arytenoids and epiglottic petiole. Contrast refluxed up to nasopharynx and nasal cavity upon subsequent swallows; this is increased with increased volume. Persistent penetration was noted on liquids; there was no aspiration. Pharyngeal residue was observed on all consistencies and increased as the viscosity increased. A second swallow or liquid washreduced but did not fully clear the residue. At this time, pt is appropriate to continue with a regular texture diet and thin liquids He should be upright for intake and take small bites/sips at a slow pace swallowing x2 per bite and alternating consistencies. Pills should be served in pureed textures. Pt and were educated on these recommendations but pt would benefit from follow up treatment to ensure understanding and compliance. Pt would also benefit from a GI consult to fully evaluate the esophagus in the setting of complaints and today's images. Pt and were in agreement and would like to pursue video visits to achieve this. Swallow Goals COMMERCIAL FINANCE MANAGER Swallow Goals 1;2 Swallow Goal 1 Goal Identifier 1 Goal Description With independent use of aspiration precautions and safe swallow strategies, pt will tolerate a regular texture diet and thin liquids with no evidence of aspiration or lung compromiseover 3 months' time. Target Date 02/26/23 Swallow Goal 2 Goal Identifier 2 Goal Description Pt will independently complete pharyngeal strengthening exercises 2-3x/day or as recommended by the treating therapist. Target Date 02/26/23 Total Session Time COMMERCIAL FINANCE MANAGER Eval: VideoFluoroscopic Swallow function Minutes (63513) 30 Total Evaluation Time 30 Therapy Certification Certification date from 11/28/22 Certification date to 02/26/23 Medical Diagnosis Dysphagia Certification I certify the need for these services furnished under this plan of treatment and while under my care. (Physician co-signature of this document indicates review and certification of the therapy plan). Thank you for the referral of Arnel Ng. If you have any questions about this report, please contact me using the information below. Lizeth Craig MS CCC-COMMERCIAL FINANCE MANAGER Speech Language Pathologist Clinical Specialist Level 3 M [facility] Dept. of Otolaryngology Department of Rehabilitation services [address] [place] [id number] Email: [email or web address] Voicemail: [phone] Gender Pronouns: she/her Employed by [employer] documented in this encounter Plan of Treatment Not on file documented as of this encounter Visit Diagnoses Diagnosis Oropharyngeal dysphagia- Primary Dysphagia, oropharyngeal phase Adenoid cystic carcinoma (H) Other malignant neoplasm without specification of site documented in this encounter Care Teams Drying Supervisor Relationship Specialty Start Date End Date David Pennington PCP - General 01/25/11 Dharmesh Montes MD [address] [address] Otolaryngology 05/20/21 Dharmesh Montes MD [address] [address] Assigned Surgical Provider 07/15/22 documented as of this encounter
--- OUTSIDE RECORDS SUMMARY | 2023-10-01 22:28 | XMS_ITS | Clinical Summary ---
Author Name Unknown Organization [email or web address] [facility] Address [place], [place] [address] Care Team Providers Care Vegetable Buncher Name Role Phone David Pennington MD Primary Care Provider Allergies No known active allergies Medications Medication Sig Dispensed Refills Start Date End Date Status cholecalciferol (VITAMIN D) 1,000 unit tablet Take 1 tablet by mouth once daily. 0 04/05/2010 Active BiPapIndications:JAQUAN (obstructive sleep apnea) BIPAP machine for home use at pressure: [...] Need: 99 months, Frequency of use: Daily 1 Device 11 02/15/2021 Active Eliquis DVT-PE Treat 30D Start tablet in a dose pack TAKE DIRECTED 10MG TWICE A DAY FOR 7 DAYS THEN 5MG TWICE A DAY 0 12/20/2021 Active albuterol HFA (PRO-AIR; VENTOLIN; PROVENTIL) 90 mcg/actuation inhalerIndications:Ch ronic cough Inhale 1-2 Puffs by mouth every 4 hours if needed for Shortness Of Breath. 1 Each 2 05/17/2023 Active fluticasone furoate-vilanteroL (Breo Ellipta) 100-25 mcg/dose inhalerIndications:Mi ld persistent asthma with exacerbation Inhale 1 Puff by mouth once daily. 60 Each 0 06/04/2023 Active levothyroxine (SYNTHROID) 175 mcg tabletIndications:Acq uired hypothyroidism Take 1 Tablet (175 mcg) by mouth before breakfast. 90 Tablet 3 08/01/2023 Active rivaroxaban (XARELTO) 20 mg tabletIndications:Oth er pulmonary embolism without acute cor pulmonale, unspecified chronicity (HC) Take 1 Tablet (20 mg) by mouth once daily with evening meal. 90 Tablet 4 08/01/2023 Active Active Problems Problem Noted Date Diagnosed Date Adenoid cystic carcinoma of parotid gland 2021 Morbid obesity 08/02/2022 Tubular adenoma 10/25/2020 Overview: Repeat colonoscopy 3 years JAQUAN 08/27/2013-11 08/21/2019 Nocturnal hypoxemia 08/21/2019 Dysfunctional gallbladder 03/12/2017 Ehrlichiosis 07/24/2016 Ehrlichiosis 07/20/2016 Abnormal transaminases 07/20/2016 Colon polyps 12/30/2013 Screening PSA (prostate specific antigen) 2013 Personal history of colonic polyps 08/12/2012 Routine general medical exam ination at a health care facility 08/14/2011 Unspecified hypothyroidism 12/26/2006 Obesity, unspecified 08/29/2006 Dermatographic urticaria 08/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 Swelling, mass, or lump in head and neck 007 Overview: rad rx left History of parotid cancer 08/29/2006 Acute respiratory failure with hypoxia Gall stone pancreatitis Polyp of colon SOB (shortness of breath) Personal history of colonic polyps Prostate cancer Pulmonary emboli Resolved Problems Problem Noted Date Diagnosed Date Resolved Date Septic shock due to undetermined organism 07/20/2016 08/21/2019 Unspecified sleep apnea 08/29/200607/28 Encounters Date Type Department Care Team Description 08/23/2023 9:35 PM CITY SUPERVISOR Procedure Only [facility] [address] [place] [address] Ozzy Alfonso MD 08/01/2023 11:20 AM CITY SUPERVISOR Office Visit [facility] [address] [facility] [place] [address] David Pennington MD Medicare ANNUAL (subsequent) Visit 08/01/2023 Travel 07/31/2023 Orders Only [address], [place] [address] David Pennington MD Screening 07/25/2023 8:50 AM CITY SUPERVISOR Orders Only [facility] [address] [place] [address] [place], [place] [facility] 07/25/2023 Travel 07/09/[address] [place] [address] David Pennington MD Lab 07/05/2023 12:15 PM CITY SUPERVISOR Office Visit [address] [place] [address] Prince Escobar MD Follow Up (Yearly) 07/05/2023 Travel from Last 3 Months Immunizations Name Administration Dates Next Due COVID-19 vaccine (Sevenpop 30mcg/0.3mL) MD MARGARITAV 12/02/2020,11/11/2020 Influenza Virus, Unspecified 05/28/2021 Influenza, IIV3 (Age >=3 years) 06/27/2011,06/24,08/02/2009 Influenza, IIV4 08/09/2020, 9,07/24/2016,2014 Influenza, Inactivated AIIV4 (Age 65+ Years) Preserv Free 05/17/2023,06/22/2022 Influenza,CCIIV4 PRESERV FREE 08/19/2021 Pneumococcal Conj 20-valent (Prevnar 20) 07/31/2022 Pneumococcal, Unspecified 05/28/2020 Td (Age >=7 Years) 07/07/1997 Tdap 03/11/2018,04/01/2008 Zoster (Shingrix-RZV, recombinant) 08/04/2019, Family History Medical History Relation Name Comments Stroke Father Cancer-colon Mother ?? Osteoporosis Mother Heart Disease Other 1 grandfather 70 's Cancer-prostate Other 2 uncle's Relation Name Status Comments Father Mother Other 1 Other 2 Social History Tobacco Use Types Packs/Day Years Used Date Smoking Tobacco: Never Smokeless Tobacco: Never Tobacco Cessation:Counseling Given: No Alcohol Use Standard Drinks/Week Comments Yes 0 (1 standard drink = 0.6 oz pur e alcohol) occasional PHQ-2 Answer Date Recorded PHQ-2 TOTAL SCORE 0 07/31/2022 Social Connections Answer Date Recorded Frequency of Communication with Friends and Fami ly Not on file 08/22/2021 Financial Resource Strain Answer Date R ecorded Difficulty of Paying Living Expenses Not on file 08/22/2021 Difficulty of Paying Living Expenses Not on file 08/22/2021 Sex and Gender Information Value Date Recorded Sex Assigned at Not on file Gender Identity Not on file Sexual Orientation Not on file Obstetrics History Last Filed Vital Signs Vital Sign Reading Time Taken Comments Blood Pressure 122/60 08/01/2023 11:24 AM CITY SUPERVISOR Pulse 66 08/01/2023 11:24 AM CITY SUPERVISOR Temperature 36.7 ??C (98 ??F) 02/01/2023 7:41 AM CDT Respiratory Rate 20 06/22/2022 11:31 AM CDT Oxygen Saturation 97% 08/01/2023 11:24 AM CITY SUPERVISOR Inhaled Oxygen Concentration - - Weight 147.9 kg (326 lb) 08/01/2023 11:24 AM CITY SUPERVISOR Height 182.2 cm (5' 11.75) 08/01/2023 11:24 AM CITY SUPERVISOR Body Mass Index 44.52 08/01/2023 11:24 AM CITY SUPERVISOR Plan of Treatment Upcoming Encounters Date Type Department Care Team (Late st Contact Info) Description 07/10/2024 10:00 AM CITY SUPERVISOR Office Visit [facility] [address] [place] [address] Prince Escobar MD [address] [place] [address] Health Maintenance Due Date Last Done Comments COVID-19 vaccine series (2022- season) 2023 06/01/2023, 05/22/2022, 07/12/2021, Additional history exists Depression screening for age 12+ 07/31/2023 07/31/2022, 08/09/2020, 08/09/2020, Additional history exists Colonoscopy through age 75 10/26/202310/25, 08/17/2017, 08/12/2012, Additional history exists BMI (ht and wt on same day) for age 18+ 08/01/2024 08/01/2023, 05/17/2023, 07/31/2022, Additional history exists Medicare Wellness for age 65+ 08/01/2024 08/01/2023, 07/31/2022 Tetanus booster 03/11/2028 03/11/2018, 08/0 01/2008, 07/07/1997 Lipids for age 45-75 07/25/2028 07/25/2023, 07/25/2022, 08/15/2021, Additional history exists Tdap Completed 03/11/2018, 04/01/2008 Hepatitis C screening for ag e 18-79 Completed 05/24/2019, 12/17/2014 Zoster (shingles) series for age 50+ Completed 08/04/2019, 05/28/2019 Pneumococcal series for age 65+ Completed , 05/28/2020 Influenza for age 65+ Completed 05/17/2023 , 06/22/2022, 08/19/2021, Additional history exists Procedures Procedure Name Priority Date/Time Associated Diagnosis Comments UA W/ SEDIMENT EXAM REFLEXED PER CRITERIA Routine 07/25/2023 8:47 AM CITY SUPERVISOR Well adult exam LIPID PANEL W REFLEX MEASURED LDL Routine 07/25/2023 8:41 AM CITY SUPERVISOR Acquired hypothyroidism TSH Routine 07/25/2023 8:41 AM CITY SUPERVISOR Acquired hypothyroidism CBC W PLT NO DIFF Routine 07/25/2023 8:4 1 AM CITY SUPERVISOR Well adult exam BASIC METABOLIC PANEL Routine 07/25/2023 8:41 AM CITY SUPERVISOR Well adult exam from Last 3 Months Results * UA W/ SEDIMENT EXAM REFLEXED PER CRITERIA (07/25/2023 8:47 AM CITY SUPERVISOR) COLOR Yellow Yellow Color 07/25/2023 9:04 AM [facility] CLARITY Clear Clear Clarity 07/25/2023 9:04 AM [facility] SPECIFIC GRAVITY,URINE 1.020 1.010, 1.015, 1.020, 1.025 07/25/2023 9:04 AM [facility] PH,URINE 7.0 6.0, 7.0, 8.0, 5.5, 6.5, 7.5, 8.5 07/25/2023 9:04 AM [facility] UROBILINOGEN, QUALITATIVE Normal Normal EU/dl 07/25/2023 9:04 AM [facility] PROTEIN, URINE Negative Negative mg/dL 07/25/2023 9:04 AM [facility] GLUCOSE, URINE Negative Negative mg/dL 07/25/2023 9:04 AM [facility] KETONES,URINE Negative Negative mg/dL 07/25/2023 9:04 AM [facility] BILIRUBIN,URI NE Negative Negative 07/25/2023 9:04 AM [facility] OCCULT BLOOD,URINE Negative Negative 07/25/2023 9:04 AM [facility] NITRITE Negative Negative 07/25/2023 9:04 AM [facility] LEUKOCYTE ESTERASE Negative Negative 07/25/2023 9:04 AM [facility] Urine URINE SPECIMEN / Unknown Non-Blood / Unknown 07/25/2023 8:47 AM CITY SUPERVISOR 07/25/2023 8:47 AM CITY SUPERVISOR David Pennington MD URINE [facility] [address] [place] [address], * LIPID PANEL W REFLEX MEASURED LDL (07/25/2023 8:41 AM CITY SUPERVISOR) CHOLESTEROL,TOTAL 173 100 - 199 mg/dL 07/25/2023 6:53 PM CITY SUPERVISOR [facility] Comment: Cholesterol, Total Reference Ranges Desirable <200 mg/dL Borderline 200-239 mg/dL High >=240 mg/dL TRIGLYCERIDES 72 <150 mg/dL 07/25/2023 6:53 PM CITY SUPERVISOR [facility] HDL CHOLESTEROL 52 >40 mg/dL 6:53 PM CITY SUPERVISOR [facility] NON-HDL CHOLESTEROL 121 <145 mg/dl 07/25/2023 6:53 PM CITY SUPERVISOR [facility] CHOL/HDL RATIO 3.33 <4.50 07/25/2023 6:53 PM CITY SUPERVISOR [facility] LDL CHOLESTEROL 107 <=130 mg/dL 07/25/2023 6:53 PM CITY SUPERVISOR [facility] VLDL CHOLESTEROL 14 <=30 mg/dL 07/25/2023 6:53 PM CITY SUPERVISOR [facility] PROVIDER ORDERED STATUS RANDOM 07/25/2023 6:53 PM CITY SUPERVISOR [facility] Blood BLOOD SPECIMEN / Unknown Venipuncture / Unknown 07/25/2023 8:41 AM CITY SUPERVISOR 07/25/2023 8:45 AM CITY SUPERVISOR David Pennington MD CHEMISTRY Performing Organization Address City/[facility]/ZIP Co de Phone Number [facility] [address] [place] [address], * TSH (07/25/2023 8:41 AM CITY SUPERVISOR) TSH 2.36 0.27 - 4.20 uIU/mL 07/25/2023 6:53 PM CITY SUPERVISOR [facility] Blood BLOOD SPECIMEN / Unknown Venipuncture / Unknown 07/25/2023 8:41 AM CITY SUPERVISOR 07/25/2023 8:45 AM CITY SUPERVISOR Narrative [facility] - 07/25/2023 6:53 PM CITY SUPERVISOR In Adults, TSH values between 5.00 and 10.00 uIU/ml do not necessarily indicate the presence of Hypothyroidism. Correlation with clinical findings such as presence of goiter and/or Thyroperoxidase (TPO) Antibody may be helpful. For more information please refer to YOLIS 2004; 291: 228-238. David Pennington MD CHEMISTRY Performing Organization Address City/[facility]/ZIP Co de Phone Number [facility] [address] [place] [phone], [place] * (ABNORMAL) CBC W PLT NO DIFF (07/25/2023 8:41 AM CITY SUPERVISOR) WHITE BLOOD COUNT 6.3 4.5 - 11.0 thou/cu mm 07/25/2023 9:32 AM CITY SUPERVISOR [facility] RED BLOOD COUNT 5.43 4.30 - 5.90 mil/cu mm 07/25/2023 9:32 AM [facility] HEMOGLOBIN 15.4 13.5 - 17.5 g/dL 07/25/2023 9:32 AM [facility] HEMATOCRIT 48.7 37.0 - 53.0 % 07/25/2023 9:32 AM [facility] MCV 90 80 - 100 fL 07/25/2023 9:32 AM [facility] MCH 28.4 26.0 - 34.0 pg 07/25/2023 9:32 AM [facility] MCHC 31.6(L) 32.0 - 36.0 g/dL 07/25/2023 9:32 AM [facility] RDW 16.0(H) 11.5 - 15.5 % 07/25/2023 9:32 AM [facility] PLATELET COUNT 218 140 - 440 thou/cu mm 07/25/2023 9:32 AM [facility] MPV 9.4 6.5 - 11.0 fL 07/25/2023 9:32 AM [facility] Blood BLOOD SPECIMEN / Unknown Venipuncture / Unknown 07/25/2023 8:41 AM CITY SUPERVISOR 07/25/2023 8:45 AM CITY SUPERVISOR Narrative [facility] - 07/25/2023 9:32 AM CITY SUPERVISOR This procedure was originally ordered at [facility]. David Pennington MD HEMATOLOGY [facility] [address] [place] [address], [place] [phone] * (ABNORMAL) BASIC METABOLIC PANEL (07/25/2023 8:[address] [facility]) SODIUM 141 136 - 145 mmol/L 07/25/2023 6:53 PM [facility] POTASSIUM 5.1 3.5 - 5.1 mmol/L 07/25/2023 6:53 PM [facility] CHLORIDE 100 98 - 107 mmol/L 07/25/2023 6:53 PM [facility] CO2,TOTAL 29 22 - 29 mmol/L 07/25/2023 6:53 PM [facility] ANION GAP 12 5 - 18 07/25/2023 6:53 PM [facility] GLUCOSE 113(H) 70 - 99 mg/dL 07/25/2023 6:53 PM [facility] CALCIUM 9.0 8.8 - 10.2 mg/dL 07/25/2023 6:53 PM [facility] BUN 18 8 - 23 mg/dL 07/25/2023 6:53 PM [facility] CREATININE 0.85 0.70 - 1.20 mg/dL 07/25/2023 6:53 PM [facility] BUN/CREAT RATIO 21(H) 10 - 20 6:53 PM [facility] eGFR >90 >90 mL/min/1.7 3m2 07/25/2023 6:53 PM [facility] Comment:As of 2021, eG FR is calculated by the CKD-EPI creatinine equation without race adjustment. ??eGFR can be influenced by muscle mass, exercise, and diet. ??The reported eGFR is an estimation only and is only applicable if the renal function is stable. Blood BLOOD SPECIMEN / Unknown Venipuncture / Unknown 07/25/2023 8:41 AM CITY SUPERVISOR 07/25/2023 8:45 AM CITY SUPERVISOR David Pennington MD CHEMISTRY [facility] [address] [place] [address], from Last 3 Months Advance Directives Latest Code Status on File Code Status Date Activated Date Inactivated Comments Full Code 10/25/2020 7:23 AM 10/25/2020 12:20 PM Question Answer Comments Code Status Discussion: Per Existing Order Code Status History Code Status Date Activated Date Inactivated Comments Full Code 08/17/2017 8:23 AM 08/17/2017 12:54 PM Full Code 04/17/2017 10:06 AM 04/17/2017 6:47 PM Full Code 07/19/2016 7:55 PM 07/24/2016 7:00 PM Care Teams Vegetable Buncher Relationship Specialty Start Date End Date David Pennington MD [address] [place] [id number] PCP - General Family Practice 12/10/18
--- OUTSIDE RECORDS SUMMARY | 2023-10-01 22:28 | XMS_ITS | Encounter Summary ---
Author Name Unknown Organization [facility] Address [address] [place] [address]. [place] [address] Care Team Providers Care Pipe Coverer Name Role Phone David Pennington Primary Care Provider [phone] Dharmesh Montes MD Unavailable Dharmesh Montes MD Unavailable Reason for Visit * Reason Comments RECHECK Couch, dysphagia, po st nasal drip. States he did the swallowing tests, saw the sleep doctor, a head of it. Encounter Details Date Type Department Care Team (Late st Contact Info) Description 07/24/2023 11:35 AM EXCAVATING SUPERVISOR Office Visit [facility] [address] [place] [address] Dharmesh Montes MD [address] [facility] [address] [place] [address] Adenoid cystic carcinoma (H) (Primary Dx) Social History Tobacco Use Types [...] on file documented as of this encounter Progress Notes * Dharmesh Montes MD - 07/24/2023 11:35 AM CST Images from the original note were not included. Otolaryngology Clinic Name: Arnel Ng Age: [age] year old : 1955 07/24/2023 Chief Complaint: Follow up History of Present Illness: Arnel Ng is a 68 year old male with a history of adenoid cystic cancer s/p resection [address] Rodriguez who presents for follow up. At our last visit on 07/11/22, he endorsed a productive cough, dysphagia, and postnasal drip. Today, the dysphagia persists. He states he has finished the swallowing test and has since seen a sleep doctor as well as a head of it. He was prescribed albuterol by his head of it and has seen somewhat relief. Additionally, he has been losing weight recently. Review of Systems: Pertinent items are noted in HPI or as in patient entered ROS below, remainder of complete ROS is negative. 03/09/2020 3:23 PM ENT ROS Constitutional Problems with sleep Ears, Nose, Throat Trouble swallowing Hoarseness Musculoskeletal Back pain Endocrine Thirst Physical Exam: There were no vitals taken for this visit. PHYSICAL EXAMINATION: Constitutional: The patient was accompanied, well-groomed, and in no acute distress. Skin: Warm and pink. Neurologic: Alert and oriented x 3. CN's III-XII within normal limits. Voice normal. Psychiatric: The patient's affect was calm, cooperative, and appropriate. Respiratory: Breathing comfortably without stridor or exertion of accessory muscles. Eyes: Extraocular movement intact. Head: Normocephalic and atraumatic. No lesions or scars. Ears: Pinnae and tragus non-tender. EAC's and TM's were clear. Nose: Sinuses were non-tender. Anterior rhinoscopy revealed midline septum and absence of purulenceor polyps. OC/OP: Normal tongue, floor of mouth, buccal mucosa, and palate. No lesions or masses on inspectionor palpation. No abnormal lymph tissue in the oropharynx. The pterygoid region is non-tender. Neck: Supple with normal laryngeal and tracheal landmarks. The parotid beds were without masses. Nopalpable thyroid. Lymphatic: There is no palpable lymphadenopathy in the neck. Imaging: XR Chest 11/28/22 IMPRESSION: Elevated left hemidiaphragm with distended stomach again noted. Central bronchial wall thickening unchanged and may indicate age-indeterminate airway inflammation or other reactive airway disease. Lungs do not appear severely hyperinflated. Assessment and Plan: Arnel Ng is a 68 year old male with a history of adenoid cystic cancer s/p resection [address] Rodriguez who presents for follow up.We discussed a potential brow lifted blepharoplasty procedure, may discuss further in the future. Scribe Disclosure: I, Yoel Herrera, am serving as a scribe; to document services personally performed by Dharmesh Montes MD -based on data collection and the provider's statements to me. Provider Disclosure: I agree with above History, Review of Systems, Physical exam and Plan. I have reviewed the content of the documentation and have edited it as needed. I have personally performed the services documented here and the documentation accurately represents those services and the decisions I have made. Electronically signed by: Dharmesh Montes MD VATING SUPERVISOR documented in this encounter Nursing Notes * Anabel Ogden - 07/24/2023 11:35 AM CST Arnel Ng's goals for this visit include: Chief Complaint Patient presents with RECHECK Couch, dysphagia, post nasal drip. States he did the swallowing tests, saw the sleep doctor, a head of it. Anabel Ogden, visit marker delivery VATING SUPERVISOR documented in this encounter Plan of Treatment Not on file documented as of this encounter Visit Diagnoses Diagnosis Adenoid cystic carcinoma (H)- Primary Other malignant neoplasm without specification of site documented in this encounter Care Teams Pipe Coverer Relationship Specialty Start Date End Date David Pennington PCP - General 01/25/11 Dharmesh Montes MD [address] [place] [address] Otolaryngology 05/20/21 Dharmesh Montes MD [address] [address] Assigned Surgical Provider 07/15/22 documented as of this encounter
--- OUTSIDE RECORDS SUMMARY | 2023-10-01 22:28 | XMS_ITS | Encounter Summary ---
Author Name Unknown Organization [facility] Address [address] [place] [address]. [place] [address] Care Team Providers Care Payment Poster Name Role Phone David Pennington Primary Care Provider [phone] Dharmesh Montes MD Unavailable [phone] Dharmesh Montes MD Unavailable [phone] Reason for Visit * Therapeutic Services (Routine) - Closed Specialty Diagnoses / Procedures Referred By Contac t Referred To Contact Diagnoses Adenoid cystic carcinoma (H) Dharmesh Montes MD [address] [facility] [address] [place] [address] Referral ID Status Reason Start Date Expiration Date V isits Requested Visits Authorized [facility] TO DOOR SALES REPRESENTATIVE([id number]) Closed 08/14/2022 08/14/2023 365 365 Encounter Details Date Type Department Care Team (Latest Contact Info) Description 12/15/2022 11:00 AM CDT Virtual Visit [facility] [address] [facility] [address] [place] [address] Suzi Gill Oropharyngeal dysphagia (Primary Dx) Social History Tobacco Use Types [...] Recorded In the last 10 days, have janes casanova been in contact with someone who was confirmed or suspected to have Coronavirus/COVID-19? No / Unsure 11/28/2022 12:25 PM CDT documented as of this encounter Progress Notes * Suzi Gill - 12/15/2022 11:00 AM CDT Arnel Ng is a 67 year old male who is being seen via a billable video visit. Patient has given verbal consent for Video visit? Yes Video Start Time: 1100 Telehealth Visit Details Type of Service: Telehealth Video End Time (time video stopped): 1130 Originating Location (pt. location): Home Additional Participants in Telehealth Visit: Yes, pts Distant Location (provider location): [facility] Mode of Communication (Audio Visual or Audio Only): Audio Visual Suzi Gill December 15, 2022 documented in this encounter Plan of Treatment Not on file documented as of this encounter Visit Diagnoses Diagnosis Oropharyngeal dysphagia- Primary Dysphagia, oropharyngeal phase documented in this encounter Care Teams Payment Poster Relationship Specialty Start Date End Date David Pennington PCP - General 01/25/11 Dharmesh Montes MD [address] [place] [address] Otolaryngology 05/20/21 Dharmesh Montes MD [address] [id number] Assigned Surgical Provider 07/15/22 documented as of this encounter
--- OUTSIDE RECORDS SUMMARY | 2023-10-01 22:29 | XMS_ITS | Data Portability ---
Author Name Unknown Address [address] [place] [address] Phone [phone] Organization [facility], [facility] Address [address] [place] [address] Care Team Providers Care Programming Engineer Name Role Phone HIEN ARIAS Primary Care Provider HIEN ARIAS Referring Provider Assessment No assessment recorded. Plan of Treatment Reminders Order Date Submit Date Provider Last Modified By Organization Details Last Modified Time Details Appointments None recorded. Lab biopsy, prostate 2021 [facility], [address], [address], [place], [address], 15:43:39 Referral None recorded. Procedures None recorded. Surgeries None recorded. Imaging MRI, prostate, w/wo contrast - please schedule this appt 2021 [facility], [address], [address], [place], [address], 13:45:28 Medication Orders ceftriaxone 1 gram solution for injection [address], [address], 10:58:08 lidocaine HCl 10 mg/mL (1 %) injection solution [address], [place], [address], 10:58:08 levofloxaci n 500 mg tablet 2021 022 OD[address] [facility], [address] [place], [address], 03:38:17 Patient TargetsNo targets recorded. Patient InstructionsNo instructions recorded. Reason for Referral None Reported. Results Created Date Observation Date Name Description Value Unit Range Abnormal Flag LastModifiedBy Organization Detail LastModifiedTime 09/26/19 22 09/26/2021 PSA, total , serum or plasm a PSA 9.41 high Not Available Not Available 08/29 13:30:33 10/12/19 22 10/11/2021 MRI, prost ate, w/wo contr ast No observ ation record ed. [email or web address] [facility] [place] [address] [facility] [address], [place], [address], 10/20/2021 09:10:56 Result Notes None recorded. Problems Name Status Onset Date Resolution Date Notes Provider Name and Address Organization Details Recorded Time Prostate specific antigen above reference range Active 04/01/20 18 R97.20 : Raised prostate specific antigen Not Available [facility] 02/05/2020 00:26:15 Problem Notes None recorded. Procedures Surgical History Date Name Laterality Status Provider Name and Address Organization Details Recorded Time 11/29/19 22 Prostate Biopsy Procedure completed Prince Escobar MD [address] [place] [address],[address], [place], [address], [facility] 11/28/2021 12:16:16 11/29/19 22 Rocephin/Ceftri axone completed Narda henderson [facility] 11/28/2021 10:59:17 10/03/19 22 Bladder Scan completed Tomer henderson [facility] 10/03/2021 10:43:43 09/01/19 21 Diagnostic colonoscopy completed Not Available Health Note 09/29/2021 12:07:14 04/09/20 17 Removal of gallbladder completed Not Available Health Note 09/29/2021 12:07:14 03/27/20 17 Colonoscopy thru stoma spx completed Not Available Health Note 09/29/2021 12:07:14 Removal of thyroid completed Not Available Health Note 09/29/2021 12:07:14 Prp i/boris init reduc >5 yr completed Not Available Health Note 09/29/2021 12:07:14 Hernia repair w/mesh completed Not Available Health Note 09/29/2021 12:07:14 Imaging Results Imaging Date Name Status LastModified by Organiz ation Details LastModified Time 10/11/2021 MRI, prostate, w/wo contrast completed [email or web address] [facility] [place] [address], [place], [address], 10/20/2021 09:10:56 Procedure Notes None recorded. Medical Equipment None Reported. Allergies No known drug allergies Medications Name Sig Start Date Stop Date Status Note LastModified by Organization Details LastModified Time lidocaine HCl 10 mg/mL (1 %) injection solution lidocaine (2.1ml reconstitut ed w/ ceftriaxone 2021 active Not Available Not Available Not Avai lable doxycycline hyclate 100 mg capsule TAKE ONE CAPSULE BY MOUTH TWICE DAILY FOR 1-2 DAYS WHEN NEEDED FOR TICK BITE. active Not Available Not Available No t Available ceftriaxone 1 gram solution for injection Take 1 mg by injection route. 2021 active Not Available Not Available Not Avai lable levothyroxin e 150 mcg tablet TAKE 1 TABLET BY MOUTH ONCE DAILY BEFORE BREAKFAST active Not Available Not Available No t Available levofloxacin 500 mg tablet TAKE ONE TABLET BY MOUTH EVERY 24 HOURS active Not Available Not Available No t Available Vitals Date Recorded Body weight Body height Body mass index (BMI) Provider Name and Address Organization Details Last Updated DateTime 10/03/2021 [id number] 25691 g 182.88 cm 43.4 kg/m2 Not Available Health Note 10/03/2021 10:38:33 Date Recorded Body height Heart rate Systolic blood pressure Diastolic blood pressure Provider Name and Address Organization Details Last Updated DateTime 11/28/2021 182.88 cm 89 /min 135 mm[Hg] 83 mm[Hg] HERLINDA [facility] - [facility] 11/28/2021 11:02:09 Date Recorded Body height Provider Name an d Address Organization Details Last Updated DateTime 11/28/2021 182.88 cm Tomer Tsai [place], [place] - [facility] 11/28/2021 11:23:26 Social History Question Answer Notes LastModified by Organizat ion Details LastModified Time Tobacco Smoking Status Never Smoker Not Available Health Note 09/29/2021 12:07:15 What Is Your Level Of Alcohol Consumption? Occasional [email or web address] Information not available 09/29/2021 What Is Your Level Of Caffeine Consumption? Moderate [email or web address] Information not available 09/29/2021 How Much Tobacco Do You Chew? None [email or web address] Information not available 09/29/2021 Do You Or Have You Ever Used E-cigarettes Or Vape? Never Used Electronic Cigarettes [email or web address] Information not available 09/29/2021 Race White Information n ot available 02/05/2020 Marital Status Informati on not available 02/05/2020 What Was The Date Of Your Most Recent Tobacco Screening? 10/03/2021 [email or web address] Information not available 10/03/2021 What Is Your Relationship Status? [email or web address] Information not available 09/29/2021 Do You Or Have You Ever Used Smokeless Tobacco? Never Used Smokeless Tobacco [email or web address] Information not available 09/29/2021 Do You Use Any Illicit Or Recreational Drugs? No [email or web address] Information not available 09/29/2021 Sex: Male Functional Status None recorded. Mental Status None recorded. Family History Relationship Description Onset Age of this Age Resolved Age Notes Father No current problems or disability Mother No current problems or disability Medical History Condition Response Sexually Transmitted Infection N Diabetes N Bleeding Disorder N High Blood Pressure N Kidney Stones N Cancer Y Depression N Lung Disease N High Cholesterol N GERD/Acid Reflux N Heart Disease N Immunizations Vaccine Type Date Status Provider Name and Address Organization Details Recorded Time influenza, unspecified formulation 05/28/2021 completed Not Available Health Note 09/29/2021 12:07:19 SARS-COV-2 (COVID-19) vaccine, UNSPECIFIED 07/12/2021 completed Not Available Health Note 09/29/2021 12:07:19 pneumococcal, unspecified formulation 05/28/2020 completed Not Available Health Note 09/29/2021 12:07:19 Past Encounters Encounter ID Performer Location Encounter Start Date Encounter Closed Date Diagnosis/Indication [id number] Prince Escobar MD [facility] [address] [place] [address] 10/03/2021 10:38:25 10/03/2021 11:32:00 Prostate specific antigen above reference range [id number] Narda Santiago ry [address] [place] [address] 11/28/2021 10:52:45 11/28/2021 11:04:26 Prostate specific antigen above reference range [id number] MD Ephraim DelgadoIgnacio ry [address] [address] 11/28/2021 10:53:47 11/28/2021 12:27:12 Prostate specific antigen above reference range Health Concerns Section Related Observation LastModified by Organization Detai ls LastModified Time None Recorded Concern Status LastModified by Organization Details LastModified Time None Recorded Advance Directives Directive None Recorded Payers Encounter Date Sequence Insurance Name Policy Number Policy Sanchez Covered Member ID Sanchez Member ID Guarantor Name 11/28/2021 1 R [id number] Arnel E Mode [id number] Arnel E Mode 11/28/2021 1 UMR [id number] Arnel E Mode [id number] Arnel E Mode 10/03/2021 1 UMR [id number] Arnel E Mode [id number] Arnel E Mode Notes Date Note Type Note Provider Name and Address Organization Details Recorded Time 10/03/2021 text/html HPI Notes: Curry chatman presents today for consultation PSA rising to 9 range -- steadily increasing from 2 - 4- 6 over the last few years. Chief complaint: Elevated Prostate Level (PSA) Elevated PSA: Diagnosed: 9 Weeks ago Prince Escobar MD [address], [address], [facility] 10/03/2021 11:24:49 11/28/2021 text/html HPI Notes: curry chatman here for trus biopsy mri reviewed - no significant lesions Prince Escobar MD [address], [address], [facility] 11/28/2021 12:16:39
[2023-10-01 23:10] LABS: HCO3 VBG 35 mmol/L (21-28); PO2 VBG 33.9 mmHG (25-47); pH VBG 7.322 (7.32-7.43)
[2023-10-01 23:12] LABS: Basophils Percent Auto 0.1 % (0.0-3.0); Eosinophils Percent Auto 0.1 % (0.0-7.0); Hematocrit 46.4 % (37.0-53.0); Hemoglobin* 14.5 gm/dL (13.5-17.5); Lymphocytes Percent Auto 4.7 % (20-44); Mean Corpuscular HGB Conc 31 gm/dL (32-36); Mean Corpuscular Hemoglobin 29 pg (26-34); Mean Corpuscular Volume 92 fL (80-100); Monocytes Percent Auto 6.8 % (0.0-11.0); Neutrophils Percent Auto 87.3 % (42.0-72.0); Platelet Count* 210 K/uL (140-440); Red Blood Count 5.04 m/uL (4.30-5.90); White Blood Count* 14.79 K/uL (4.50-11.00)
[2023-10-01 23:16] LABS: PCO2 VBG 68 mmHG (40-50)
[2023-10-01 23:17] LABS: Slide Review Reflex No
[2023-10-01 23:21] LABS: Troponin, Point-of-Care* 0.02 ng/ml (0.01-0.04)
[2023-10-01 23:26] LABS: Chloride* 96 mmol/L (96-114); Potassium* 4.6 mmol/L (3.6-5.1); Sodium* 136 mmol/L (135-149)
[2023-10-01 23:29] LABS: Anion Gap 7 mEq/L (7-15); Blood Urea Nitrogen* 19 mg/dL (7-30); Calcium* 8.8 mg/dL (8.4-10.6); Carbon Dioxide* 33 mmol/L (20-32); Creatinine* 0.8 mg/dL (0.5-1.5); Est. Creatinine Clearance* 82.12; Estimated Glomerular Filt Rate 98 ml/min; Glucose* 174 mg/dL (60-115)
--- NOTE | 2023-10-01 23:35 | ED_ITS ---
HPI - General Adult General Chief complaint: Cough Stated complaint: Cough and difficulty breathing Time Seen by Provider: 10/01/23 22:03 History of Present Illness HPI narrative: This 68-year-old male comes in reporting cough and shortness of breath. He arrives with oximetry at 75% on room air. Upon arrival he was placed on nasal cannula oxygen at 2 L and this brought it is oximetry up to 91%. 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 He is on anticoagulant treatment. He does not describe any fevers. He comes in with some tachycardia but otherwise has normal vital signs. His states that they returned from a cruise recently. Related Data Home Medications Medication Instructions Recorded Confirmed albuterol sulfate 90 mcg/actuation 2 puff inhalation Q4-6H PRN 10/01/23 10/01/23 aerosol inhaler fluticasone 100 mcg-salmeterol 50 1 ea inhalation BID 10/01/23 10/01/23 mcg/dose blistr powdr for inhalation (Advair Diskus) levothyroxine 175 mcg tablet 175 mcg PO QAM 10/01/23 10/01/23 rivaroxaban 20 mg tablet (Xarelto) 20 mg PO QPM 10/01/23 10/01/23 umeclidinium 62.5 mcg/actuation 1 inh inhalation DAILY 10/01/23 10/01/23 blister powder for inhalation (Incruse Ellipta) Allergies Allergy/AdvReac Type Severity Reaction Status Date / Time No Known Drug Allergies Allergy Verified 10/01/23 22:13 Review of Systems Status of ROS: Reports: 10 or more systems reviewed and unremarkable except as noted in History and below Narrative: Constitutional: No fevers, no weight gain or loss. Eyes: No discharge. No vision changes. HENT: No congestion, no sore throat, no ear pain. Cardiovascular: No chest pain, no palpitations. Respiratory: Shortness of breath and occasional cough. Gastrointestinal: No abdominal pain, no vomiting, no diarrhea. Genitourinary: No dysuria, no hematuria. Musculoskeletal: Normal range of motion. Skin: No rashes, no pruritis. Neurological: No dizziness, weakness, sensory change, speech change. Endo/Heme/Allergies: No bruising or bleeding. No polydipsia. Pysch: no suicidality, no anxiety, no insomnia. All other systems reviewed and are negative. [facility] Social History How often do you have a drink containing alcohol: never AUDIT-C Alcohol total score: 0 Non-prescribed substance use: denies use Exam Narrative: Exam Narrative: Constitutional: Well-developed, well-nourished, no acute distress. HEENT: Normocephalic, atraumatic. Neck: Normal range of motion. Nontender. Supple. Heart: Regular. No murmurs. Borderline tachycardia. Intact distal pulses. Lungs: Decreased air movement. No use of accessory muscles for breathing. Abdomen: Normal bowel sounds. Nontender. No rebound tenderness. Genitalia: Deferred. Back: No midline tenderness. Normal range of motion. Extremities: Normal range of motion. No injury. Bilateral pedal edema. Skin: Intact. No rash. Warm. No erythema or pallor. Neurologic: No altered sensation. No weakness. Alert and oriented. Psychiatric: No suicidality. No anxiety or depression. No insomnia. Nursing notes and vitals signs are reviewed. Const: Vital Signs, click to edit/add: Vital Signs - 24 hr 10/01/23 22:00 10/01/23 23:12 10/01/23 23:15 Temperature 97.8 F Pulse Rate 97 99 Pulse Rate [Pulse Oximeter] 107 H Respiratory Rate 14 Blood Pressure Blood Pressure [Ri ght Upper Arm] 112/72 Pulse Oximetry 75 L 94 92 Oxygen Delivery Me thod Room Air Oxygen Flow Rate 4 4 10/01/23 23:30 10/01/23 23:32 Temperature Pulse Rate 99 94 Pulse Rate [Pulse Oximeter] Respiratory Rate Blood Pressure 128/83 Blood Pressure [Ri ght Upper Arm] Pulse Oximetry 93 93 Oxygen Delivery Me thod Oxygen Flow Rate 4 4 Course Vital Signs Vital signs: Initial Vital Signs Temperature 97.8 F 10/01/23 22:00 Temperature Source Temporal Artery Scan 10/01/23 22:00 Pulse Rate 107 H 10/01/23 22:00 Respiratory Rate 14 10/01/23 22:00 Blood Pressure 112/72 10/01/23 22:00 Blood Pressure Mean 85 10/01/23 22:00 Blood Pressure Position Sitting 10/01/23 22:00 Pulse Oximetry 75 L 10/01/23 22:00 Oxygen Delivery Method Room Air 10/01/23 22:00 Vital Signs Temperature 97.8 F 10/01/23 22:00 Pulse Rate 107 H 10/01/23 22:00 Respiratory Rate 14 10/01/23 22:00 Blood Pressure 112/72 10/01/23 22:00 Pulse Oximetry 75 L 10/01/23 22:00 Oxygen Delivery Method Room Air 10/01/23 22:00 Temperature 97.8 F 10/01/23 22:00 Pulse Rate 94 10/01/23 23:32 Respiratory Rate 14 10/01/23 22:00 Blood Pressure 128/83 10/01/23 23:32 Pulse Oximetry 93 10/01/23 23:32 Oxygen Delivery Method Room Air 10/01/23 22:00 Oxygen Flow Rate 4 10/01/23 23:32 Medical Decision Making MDM Narrative Medical decision making narrative: This patient comes in with shortness of breath and occasional cough. He is on anticoagulants because of previous history of blood clot. He also has a remote history of cancer with nothing active currently. He was recently on a cruise and now comes in with shortness of breath. Oximetry was at 75% on room air upon arrival and with 2 L nasal cannula oxygen his oximetry is at 94%. Chest x-ray shows hazy opacities typical of atelectasis. He appears to have an exacerbation of congestive heart failure. EKG shows no ST or T-wave abnormalities and troponin returns in normal range. I spoke with the overnight hospitalist on- call, Dr. cK , who will arrange for his admission. Lab Data Labs: Lab Results 10/01/23 10/01/23 Range/Units 22:23 23:00 WBC 14.79 H (4.50-11.00) K/uL RBC 5.04 (4.30-5.90) m/uL Hgb 14.5 (13.5-17.5) gm/dL Hct 46.4 (37.0-53.0) % MCV 92 (80-100) fL MCH 29 (26-34) pg MCHC 31 L (32-36) gm/dL RDW Coeff of Irma 14.0 (11.5-15.5) % Plt Count 210 (140-440) K/uL Neut % (Auto) 87.3 H (42.0-72.0) % Lymph % (Auto) 4.7 L (20-44) % Custer % (Auto) 6.8 (0.0-11.0) % Eos % (Auto) 0.1 (0.0-7.0) % Baso % (Auto) 0.1 (0.0-3.0) % Neut # (Auto) 12.90 H (1.7-7.0) K/uL Lymph # (Auto) 0.70 L (0.90-2.90) K/uL Custer # (Auto) 1.00 H (0.00-0.90) K/UL Eos # (Auto) 0.00 (0.00-0.50) K/uL Baso # (Auto) 0.00 (0.00-0.30) K/uL Abs Immat Gran (auto) 0.10 (0.00-0.30) K/uL Imm/Tot Granulo (auto) 1.0 % VBG pH 7.322 (7.32-7.43) VBG pCO2 68 H* (40-50) mmHG VBG pO2 33.9 (25-47) mmHG VBG HCO3 35 H (21-28) mmol/L Sodium 136 (135-149) mmol/L Potassium 4.6 (3.6-5.1) mmol/L Chloride 96 (96-114) mmol/L Carbon Dioxide 33 H (20-32) mmol/L Anion Gap 7 (7-15) mEq/L BUN 19 (7-30) mg/dL Creatinine 0.8 (0.5-1.5) mg/dL Estimated Creat Clear 82.12 Estimated GFR 98 ml/min Glucose 174 H (60-115) mg/dL Calcium 8.8 (8.4-10.6) mg/dL NT-Pro-B Natriuret Pep 90 pg/mL SARS-CoV-2 (PCR) Negative SARS-CoV-2 (Negative) Influenza Type A (PCR) Negative PCR FLU A (Negative) Influenza Type B (PCR) Negative PCR FLU B (Negative) RSV (PCR) Negative PCR RSV (Negative) POC Troponin I 0.02 (0.01-0.04) ng/ml Imaging Data Chest x-ray: Radiologist's impression: Bibasilar hazy opacities, favored to represent atelectasis. ECG Data Attestation: I personally reviewed and interpreted this ECG as follows: Interpretation: Sinus tachycardia, rate 102 beats per minute. There are no specific ST or T- wave abnormalities. Discharge Plan Discharge Clinical Impression: COPD (chronic obstructive pulmonary disease) Patient Disposition: Admitted As Observation Condition: Unchanged
[2023-10-01 23:45] LABS: NT Pro B Type NatriureticPept* 90 pg/mL
[2023-10-01 23:49] LABS: PCR FLU A Negative PCR FLU A (Negative); PCR FLU B Negative PCR FLU B (Negative); PCR RSV Negative PCR RSV (Negative); SARS PCR* Negative SARS-CoV-2 (Negative)
[2023-10-02] VITALS (19 sets, daily range): BP systolic 98–128; BP diastolic 59–92; PULSE 69–100; RESP 18–20; TEMP 36.2–37.2; O2SAT 88–94; BMI 45.8
--- NOTE | 2023-10-02 01:42 | ED.NURSE ---
Report to GUERDA Fuentes, who accepts transfer of patient care. Patient transported to [facility] with all belongings.
[2023-10-02 01:43] LABS: Procalcitonin* 1.14 ng/mL (<0.50)
--- NOTE | 2023-10-02 04:18 | W.PM.THH&P_ITS ---
Telehealth- H&P: HPI History of Present Illness Date Seen: 10/02/23 Chief complaint: Cough and difficulty breathing Narrative: Arnel Ng is seen as an Interactive Telehealth visit. Arnel Ng is a 68 year old male who is Seen in his hospital room with the assistance of nursing staff. He has been admitted through the emergency room. He tells me over the last 3 or 4 months he has been having slowly increasing shortness of breath he saw paradi tender and was diagnosed with asthma and was placed on inhalers. He states over the last week has become significantly worse. He is now coughing with a semiproductive cough he does not have a fever. He has been on a cruise up until 2 days ago. He denies any chest pain he denies any nausea vomiting abdominal pain. He does feel much more short of breath he is coughing. With this he came into the emergency room to be evaluated. He was found to have an elevated white count, normal BNP, he was found to be hypoxic and requiring oxygen. He has now been admitted for further evaluation and treatment. He does not have any other complaints of. Review of Systems Narrative: A complete review of systems was performed positive pertinent and negatives in the history of present illness. [facility] Social History What is your current living situation?: I presently have a place to live Problems where you live: no known problems Problems where you live details: n/a In the past 12 months, utilities in danger of being shut off: no In past 12 months, lack of transportation kept you from medical appts, meetings, work, or getting things needed for daily living: no In the past 12 mos, have been you worried that your food would run out before you had money to buy more?: never true In the past 12 mos, the food you bought just didn't last and you didn't have money to buy more?: never true Highest level of school completed/degree received: 12th grade, no diploma Smoking Status: Never smoker Do you use any of these nicotine containing products: None Second hand tobacco smoke exposure: No How often do you have a drink containing alcohol: monthly or less How many standard drinks containing alcohol do you have on a typical day: 1 or 2 How often do you have six or more drinks on one occasion: Never AUDIT-C Alcohol total score: 1 Non-prescribed substance use: denies use Caffeine: Yes (2c coffee daily) How often does anyone, including family, friends and others, physically hurt you : never How often does anyone, including family, friends and others, insult or talk down to you: never How often does anyone, including family, friends and others, threaten you with harm: never How often does anyone, including family, friends and others, scream or curse at you: never service: No Meds Home Medications and Allergies Home Medications Medication Instructions Recorded Confirmed Type albuterol sulfate 90 mcg/actuation 2 puff inhalation Q4-6H PRN 10/01/23 10/01/23 History aerosol inhaler fluticasone 100 mcg-salmeterol 50 1 ea inhalation BID 10/01/23 10/01/23 History mcg/dose blistr powdr for inhalation (Advair Diskus) levothyroxine 175 mcg tablet 175 mcg PO QAM 10/01/23 10/01/23 History rivaroxaban 20 mg tablet (Xarelto) 20 mg PO QPM 10/01/23 10/01/23 History umeclidinium 62.5 mcg/actuation 1 inh inhalation DAILY 10/01/23 10/01/23 History blister powder for inhalation (Incruse Ellipta) Allergies Allergy/AdvReac Type Severity Reaction Status Date / Time No Known Drug Allergies Allergy Verified 10/01/23 22:13 Exam Narrative Exam Narrative: Physical Exam GENERAL: ?vital signs reviewed, well developed and nourished, in no distress HEENT: pupils are equal round and reactive to light, extraocular movements are grossly within normal limits and oral mucosa is moist. NECK: Supple without lymphadenopathy or thyromegaly according to nursing staff examination observation patient with hard lymph nodes on the left side of his neck, patient encouraged to follow-up 1 month HEART: Regular rate and rhythm without any rubs, murmurs, or gallops. LUNGS: Patient with very coarse breath sounds bilaterally. Overall seems to have ABDOMEN: Observation from nurse assisted exam, abdomen appears soft, nontender, and nondistended with Positive bowel sounds noted. EXTREMITIES: Strength and sensation is observed to be grossly within normal limits in the upper and lower extremities.? No focal strength deficit is observed. SKIN:? Observed warm and dry with color normal Const Vital Signs, click to edit/add: Vital Signs - 24 hr 10/01/23 22:00 10/01/23 23:12 10/01/23 23:15 Temperature 97.8 F Pulse Rate 97 99 Pulse Rate [Pulse Oximeter] 107 H Respiratory Rate 14 Blood Pressure Blood Pressure [Left Arm] Blood Pressure [Right Upper Arm] 112/72 Pulse Oximetry 75 L 94 92 Oxygen Delivery Method Room Air Oxygen Flow Rate 4 4 10/01/23 23:30 10/01/23 23:32 10/01/23 23:33 Temperature Pulse Rate 99 94 90 Pulse Rate [Pulse Oximeter] Respiratory Rate Blood Pressure 128/83 Blood Pressure [Left Arm] Blood Pressure [Right Upper Arm] Pulse Oximetry 93 93 95 Oxygen Delivery Method Oxygen Flow Rate 4 4 10/01/23 23:45 10/02/23 00:00 10/02/23 00:02 Temperature Pulse Rate 94 96 95 Pulse Rate [Pulse Oximeter] Respiratory Rate Blood Pressure 114/85 Blood Pressure [Left Arm] Blood Pressure [Right Upper Arm] Pulse Oximetry 94 93 94 Oxygen Delivery Method Oxygen Flow Rate 10/02/23 00:02 10/02/23 00:02 10/02/23 00:02 Temperature Pulse Rate 95 95 95 Pulse Rate [Pulse Oximeter] Respiratory Rate Blood Pressure 114/85 114/85 114/85 Blood Pressure [Left Arm] Blood Pressure [Right Upper Arm] Pulse Oximetry 94 94 94 Oxygen Delivery Method Oxygen Flow Rate 10/02/23 00:15 10/02/23 00:30 10/02/23 00:32 Temperature Pulse Rate 100 98 99 Pulse Rate [Pulse Oximeter] Respiratory Rate Blood Pressure 98/59 L Blood Pressure [Left Arm] Blood Pressure [Right Upper Arm] Pulse Oximetry 91 93 93 Oxygen Delivery Method Oxygen Flow Rate 10/02/23 00:45 10/02/23 01:00 10/02/23 01:01 Temperature Pulse Rate 95 95 98 Pulse Rate [Pulse Oximeter] Respiratory Rate Blood Pressure Blood Pressure [Left Arm] Blood Pressure [Right Upper Arm] Pulse Oximetry 94 94 94 Oxygen Delivery Method Oxygen Flow Rate 10/02/23 01:15 10/02/23 01:30 10/02/23 01:32 Temperature Pulse Rate 93 90 99 Pulse Rate [Pulse Oximeter] Respiratory Rate Blood Pressure 105/78 Blood Pressure [Left Arm] Blood Pressure [Right Upper Arm] Pulse Oximetry 93 94 94 Oxygen Delivery Method Oxygen Flow Rate 10/02/23 02:24 10/02/23 02:24 10/02/23 02:58 Temperature 98.8 F 98.8 F Pulse Rate Pulse Rate [Pulse Oximeter] 94 94 Respiratory Rate 20 20 20 Blood Pressure Blood Pressure [Left Arm] 117/68 117/68 Blood Pressure [Right Upper Arm] Pulse Oximetry 88 88 88 Oxygen Delivery Method Nasal Cannula Nasal Cannula Nasal Cannula Oxygen Flow Rate 2 2 2 10/02/23 02:59 10/02/23 03:47 Temperature Pulse Rate Pulse Rate [Pulse Oximeter] 94 Respiratory Rate 20 Blood Pressure Blood Pressure [Left Arm] Blood Pressure [Right Upper Arm] Pulse Oximetry 94 Oxygen Delivery Method Nasal Cannula Oxygen Flow Rate 4 Hospitalist - H&P: Result Labs Labs: Short CBC 10/01/23 Range/Units 23:00 WBC 14.79 H (4.50-11.00) K/uL Hgb 14.5 (13.5-17.5) gm/dL Hct 46.4 (37.0-53.0) % Plt Count 210 (140-440) K/uL BMP 10/01/23 23:00 Sodium 136 Potassium 4.6 Chloride 96 Carbon Dioxide 33 H BUN 19 Creatinine 0.8 Glucose 174 H Calcium 8.8 Assessment and Plan Assessment and plan (1) Hypoxia: Status: Acute (2) Pneumonia: Status: Acute (3) Chronic hypercapnic respiratory failure: Status: Acute (4) Obesity: Status: Acute (5) Hypothyroid: Status: Acute (6) Chronic anticoagulation: Status: Acute Plan hypoxia?patient is hypoxic probably multifactorial. He probably has some underlying lung disease was diagnosed with asthma. This may be playing a role could also have some COPD. However currently not wheezing I will hold off on steroids. Patient is coughing is productive has elevated procalcitonin elevated white count I am concerned with underlying pneumonia. I will empirically start him on antibiotics looking at his chest x-ray. Will use Rocephin and doxycycline. For a better look at his lung I will obtain a CT scan of his chest will rule out a PE despite him being on Xarelto. This will give us a good look at his underlying lung parenchyma. Doubt underlying CHF. Pneumonia?doxycycline Rocephin based on x-ray, coarse lung sounds, productive cough, elevated procalcitonin, and elevated white count. Chronic hypercapnic respiratory failure along with hypoxic respiratory failure?patient currently needing oxygen. He does have an elevated CO2 level he is at risk for hypercarbia. Will try to keep his O2 sats between 88 and 94%. Obesity?patient may have some degree of obesity hypoventilation syndrome as this can be driving his elevated CO2. Hypothyroidism continue his levothyroxine. Chronic anticoagulation?continue his Xarelto. DVT prophylaxis?Xarelto he will not need DVT prophylaxis CODE STATUS was discussed on admission he wishes to be a full code. Telehealth: Statement Statement Telehealth Visit: Today's History and Physical is provided via interactive telehealth by Star Stone DO.? Patient is located at [facility].? Provider is located at [facility].? Nursing staff assisted with the patient's exam. The visit being done today meets criteria for a telehealth visit and the patient or patient?s parent/guardian is aware the visit is a telehealth visit. Camera Start Time: 03:20 Camera End Time: 03:43
[2023-10-02] MEDS: IPRAT-ALBUT 0.5-2.5 MG/3 ML NEB 1 NEB IH ×4 (04:49→21:43)
[2023-10-02] MEDS: cefTRIAXone 2 GM in 0.9 % SODIUM CHLORIDE Mini-bag 100 ML IVPB (04:50)
[2023-10-02] MEDS: DOXYCYCLINE HYCLATE 100 MG in 0.9 % SODIUM CHLORIDE Mini-bag 100 ML IVPB ×2 (05:39→18:11)
--- NOTE | 2023-10-02 06:30 | CRLHL7_ITS ---
For Patients: As a result of the Cures Act, medical imaging exams and procedure reports are released immediately into your electronic medical record. You may view this report before your referring provider. If you have questions, please contact your health care provider. INDICATION: Hypoxia. Shortness of breath. TECHNIQUE: CT chest PE was acquired with 95 cc Isovue 370 IV contrast. COMPARISON: 05/24/2023. FINDINGS: Heart and vasculature: Contrast opacification of the pulmonary arterial tree is adequate. No sign of pulmonary embolism. Enlarged pulmonary trunk measuring 42 mm (mid ascending thoracic aorta caliber is 37 mm). Lungs and pleura: Multilobar (right middle lobe, superior segment bilateral lower lobe and posterior segment right lower lobe) consolidation consistent with pneumonia in the correct clinical setting. No significant associated parapneumonic effusion. Lymph nodes/mediastinum: Right perihilar reactive lymphadenopathy. No pathologic lymph node enlargement by imaging criteria. Chest wall: No masses. Upper abdomen: Cholecystectomy. Bones: No acute or significant signal findings. Incidental findings consistent with DISH involving the lower thoracic spine. IMPRESSION: 1. No evidence of pulmonary embolism. 2. Multilobar (right middle lobe, superior segment bilateral lower lobe and posterior segment right lower lobe) consolidation consistent with pneumonia in the correct clinical setting. No significant associated parapneumonic effusion. 3. Enlarged pulmonary trunk consistent with pulmonary arterial hypertension. Please note that all CT scans at this facility use dose modulation, iterative reconstruction, and/or weight-based dosing when appropriate to reduce radiation dose to as low as reasonably achievable. Dictated by Darinel Sánchez MD @ 10/02/2023 8:25:26 AM (Electronically Signed)
[2023-10-02] MEDS: LEVOTHYROXINE 50 MCG TABLET PO (06:37)
--- NOTE | 2023-10-02 06:45 | PC.NURSE ---
End of shift [id number]. Pt was admitted to the unit at 0200 this morning. He is A&O and independent in his room. VSS with exception to O2 requirements. Pt is hypoxic and SOB; requiring 4L NC while awake and 4L bled into CPAP while asleep. Pt has an intermittent, non-productive cough. 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 Receiving IV rocephin q24 and IV doxycycline q12. PIV in right AC SL and C/D/I. Pt has a H/O DVT and PE of which he takes Xarelto for. Chest CT ordered for this morning to check for any recurring PE. Pt plans to discharge back home with his after hospitalization. ?
--- NOTE | 2023-10-02 08:14 | RESP.RT ---
Home Cpap Patient admitted with home ResMed Cpap machine. Cpap device, clean, intact and no visible areas of concerns. Oxygen bleed in of 4 lpm while in use.
[2023-10-02 08:25] LABS: Basophils Percent Auto 0.1 % (0.0-3.0); Eosinophils Percent Auto 0.1 % (0.0-7.0); Hematocrit 44.9 % (37.0-53.0); Hemoglobin* 14.1 gm/dL (13.5-17.5); Immature Granulocytes Pct Auto 0.3 %; Lymphocytes Percent Auto 5.3 % (20-44); Mean Corpuscular HGB Conc 31 gm/dL (32-36); Mean Corpuscular Hemoglobin 29 pg (26-34); Mean Corpuscular Volume 91 fL (80-100); Monocytes Percent Auto 5.5 % (0.0-11.0); Neutrophils Percent Auto 88.7 % (42.0-72.0); Platelet Count* 180 K/uL (140-440); RDW Coefficient of Variation % 14.1 % (11.5-15.5); Red Blood Count 4.94 m/uL (4.30-5.90); White Blood Count* 15.44 K/uL (4.50-11.00)
[2023-10-02 08:27] LABS: Slide Review Reflex No
[2023-10-02 08:41] LABS: Chloride* 98 mmol/L (96-114); Potassium* 4.1 mmol/L (3.6-5.1); Sodium* 135 mmol/L (135-149)
[2023-10-02 08:43] LABS: Creatinine* 0.6 mg/dL (0.5-1.5); Est. Creatinine Clearance* 79.76; Estimated Glomerular Filt Rate 106 ml/min
[2023-10-02 08:44] LABS: Anion Gap 4 mEq/L (7-15); Blood Urea Nitrogen* 15 mg/dL (7-30); Calcium* 8.4 mg/dL (8.4-10.6); Carbon Dioxide* 33 mmol/L (20-32); Glucose* 139 mg/dL (60-115)
[2023-10-02] MEDS: ALBUTEROL SULFATE 2.5 MG/3 ML VIAL.NEB NEB ×4 (09:23→20:46)
[2023-10-02] MEDS: BUDESONIDE 0.5 MG/2ML NEB 1 MG NEB ×2 (09:24→21:11)
[2023-10-02] MEDS: LEVOTHYROXINE 125 MCG TABLET PO (09:25)
[2023-10-02] MEDS: SODIUM CHLORIDE 0.9 % (FLUSH) 10 ML SYRINGE 5 ML IVF ×2 (09:25→21:11)
[2023-10-02] MEDS: IPRATROPIUM 200 MCG/ML AMPUL.NEB IH ×3 (13:09→20:46)
--- NOTE | 2023-10-02 14:59 | PC.NURSE ---
End of shift. pt has been pleasant x4. no pain he is up ab mindy. 4L NC awake and 4L bled into CPAP. he is now @ 1L nc. he has a intermittent, non-productive cough. he has ahistory of oropharyngeal cancer with mass removal from left side of jaw, so Pt speech is slurred and he has a right sided facial droop. he is getting IV antibotics. he is eating drinking and voiding. nebs given. ?
--- NOTE | 2023-10-02 15:49 | P.IMPN_ITS ---
Progress Note: A&P Assessment and plan (1) Acute on chronic hypoxic respiratory failure: Problem details: Secondary to pneumonia. Patient also has history of asthma, but this does not appear to be in exacerbation at present. Will hold off on steroids for now. Status: Acute (2) Pneumonia: Problem details: Community-acquired Continue ceftriaxone and doxycycline Continue oxygen supplementation I suspect he will need 1-2 more midnights. Status: Acute (3) Chronic hypercapnic respiratory failure: Status: Chronic (4) Obesity: Problem details: BMI 45 Status: Chronic (5) Chronic anticoagulation: Problem details: For history of PE, continue rivaroxaban Status: Chronic (6) Hypothyroid: Problem details: Continue levothyroxine Status: Chronic (7) Obstructive sleep apnea: Problem details: 08/27/2013- Status: Chronic Subjective Time Seen by Provider: 10:15 Date Seen: 10/02/23 Interval history: Sumanth and his were in the room. I updated them on the results of the CT chest. Sumanth was down to using 0.5-1LPM NC oxygen. He was sitting up on the side of the bed and noting that he felt much better. He was wondering when he could go home. He denies CP. Exam Narrative: Exam Narrative: General: No acute distress. Awake, alert, oriented x3. No pallor. No jaundice. Sitting on the edge of the bed, leaning on the bedside table. Morbidly obese. Oropharynx: Well-healed left face and jaw surgical deformity. Clear. Mucous membranes moist. Cardiovascular: Regular rate and rhythm. No murmurs, gallops, or rubs. Respiratory: Coarse breath sounds throughout with few scattered crackles, but no crackles in the bases. No wheezes. Extremities: 1+ bilateral ankle edema. Const: Vital Signs, click to edit/add: Vital Signs - 24 hr 10/01/23 22:00 10/01/23 23:12 10/01/23 23:15 Temperature 97.8 F Pulse Rate 97 99 Pulse Rate [Pulse Oximeter] 107 H Respiratory Rate 14 Blood Pressure Blood Pressure [Le ft Arm] Blood Pressure [Ri ght Upper Arm] 112/72 Pulse Oximetry 75 L 94 92 Oxygen Delivery Me thod Room Air Oxygen Flow Rate 4 4 10/01/23 23:30 10/01/23 23:32 10/01/23 23:33 Temperature Pulse Rate 99 94 90 Pulse Rate [Pulse Oximeter] Respiratory Rate Blood Pressure 128/83 Blood Pressure [Le ft Arm] Blood Pressure [Ri ght Upper Arm] Pulse Oximetry 93 93 95 Oxygen Delivery Me thod Oxygen Flow Rate 4 4 10/01/23 23:45 10/02/23 00:00 10/02/23 00:02 Temperature Pulse Rate 94 96 95 Pulse Rate [Pulse Oximeter] Respiratory Rate Blood Pressure 114/85 Blood Pressure [Le ft Arm] Blood Pressure [Ri ght Upper Arm] Pulse Oximetry 94 93 94 Oxygen Delivery Me thod Oxygen Flow Rate 10/02/23 00:02 10/02/23 00:02 10/02/23 00:02 Temperature Pulse Rate 95 95 95 Pulse Rate [Pulse Oximeter] Respiratory Rate Blood Pressure 114/85 114/85 114/85 Blood Pressure [Le ft Arm] Blood Pressure [Ri ght Upper Arm] Pulse Oximetry 94 94 94 Oxygen Delivery Me thod Oxygen Flow Rate 10/02/23 00:15 10/02/23 00:30 10/02/23 00:32 Temperature Pulse Rate 100 98 99 Pulse Rate [Pulse Oximeter] Respiratory Rate Blood Pressure 98/59 L Blood Pressure [Le ft Arm] Blood Pressure [Ri ght Upper Arm] Pulse Oximetry 91 93 93 Oxygen Delivery Me thod Oxygen Flow Rate 10/02/23 00:45 10/02/23 01:00 10/02/23 01:01 Temperature Pulse Rate 95 95 98 Pulse Rate [Pulse Oximeter] Respiratory Rate Blood Pressure Blood Pressure [Le ft Arm] Blood Pressure [Ri ght Upper Arm] Pulse Oximetry 94 94 94 Oxygen Delivery Me thod Oxygen Flow Rate 10/02/23 01:15 10/02/23 01:30 10/02/23 01:32 Temperature Pulse Rate 93 90 99 Pulse Rate [Pulse Oximeter] Respiratory Rate Blood Pressure 105/78 Blood Pressure [Le ft Arm] Blood Pressure [Ri ght Upper Arm] Pulse Oximetry 93 94 94 Oxygen Delivery Me thod Oxygen Flow Rate 10/02/23 02:24 10/02/23 02:24 10/02/23 02:58 Temperature 98.8 F 98.8 F Pulse Rate Pulse Rate [Pulse Oximeter] 94 94 Respiratory Rate 20 20 20 Blood Pressure Blood Pressure [Le ft Arm] 117/68 117/68 Blood Pressure [Ri ght Upper Arm] Pulse Oximetry 88 88 88 Oxygen Delivery Me thod Nasal Cannula Nasal Cannula Nasal Cannula Oxygen Flow Rate 2 2 2 10/02/23 02:59 10/02/23 03:47 10/02/23 08:00 Temperature 98.0 F Pulse Rate Pulse Rate [Pulse Oximeter] 94 83 Respiratory Rate 20 18 Blood Pressure Blood Pressure [Le ft Arm] 124/66 Blood Pressure [Ri ght Upper Arm] Pulse Oximetry 94 94 Oxygen Delivery Me thod Nasal Cannula Nasal Cannula Oxygen Flow Rate 4 1 10/02/23 08:00 10/02/23 11:15 Temperature 98.5 F Pulse Rate Pulse Rate [Pulse Oximeter] 83 78 Respiratory Rate 18 18 Blood Pressure Blood Pressure [Le ft Arm] 128/63 Blood Pressure [Ri ght Upper Arm] Pulse Oximetry 94 Oxygen Delivery Me thod Nasal Cannula Oxygen Flow Rate 1 Labs Labs: Laboratory Results - last 24 hr 10/01/23 10/01/23 10/02/23 22:23 23:00 00:00 WBC 14.79 H RBC 5.04 Hgb 14.5 Hct 46.4 MCV 92 MCH 29 MCHC 31 L RDW Coeff of Irma 14.0 Plt Count 210 Neut % (Auto) 87.3 H Lymph % (Auto) 4.7 L [place] % (Auto) 6.8 Eos % (Auto) 0.1 Baso % (Auto) 0.1 Neut # (Auto) 12.90 H Lymph # (Auto) 0.70 L [place] # (Auto) 1.00 H Eos # (Auto) 0.00 Baso # (Auto) 0.00 Abs Immat Gran (auto) 0.10 Imm/Tot Granulo (auto) 1.0 VBG pH 7.322 VBG pCO2 68 H* VBG pO2 33.9 VBG HCO3 35 H Sodium 136 Potassium 4.6 Chloride 96 Carbon Dioxide 33 H Anion Gap 7 BUN 19 Creatinine 0.8 Estimated Creat Clear 82.12 Estimated GFR 98 Glucose 174 H Calcium 8.8 NT-Pro-B Natriuret Pep 90 Procalcitonin 1.14 H SARS-CoV-2 (PCR) Negative SARS-CoV-2 Influenza Type A (PCR) Negative PCR FLU A Influenza Type B (PCR) Negative PCR FLU B RSV (PCR) Negative PCR RSV POC Troponin I 0.02 10/02/23 08:14 WBC 15.44 H RBC 4.94 Hgb 14.1 Hct 44.9 MCV 91 MCH 29 MCHC 31 L RDW Coeff of Irma 14.1 Plt Count 180 Neut % (Auto) 88.7 H Lymph % (Auto) 5.3 L [place] % (Auto) 5.5 Eos % (Auto) 0.1 Baso % (Auto) 0.1 Neut # (Auto) 13.70 H Lymph # (Auto) 0.80 L [place] # (Auto) 0.80 Eos # (Auto) 0.00 Baso # (Auto) 0.00 Abs Immat Gran (auto) 0.00 Imm/Tot Granulo (auto) 0.3 VBG pH VBG pCO2 VBG pO2 VBG HCO3 Sodium 135 Potassium 4.1 Chloride 98 Carbon Dioxide 33 H Anion Gap 4 L BUN 15 Creatinine 0.6 Estimated Creat Clear 79.76 Estimated GFR 106 Glucose 139 H Calcium 8.4 NT-Pro-B Natriuret Pep Procalcitonin SARS-CoV-2 (PCR) Influenza Type A (PCR) Influenza Type B (PCR) RSV (PCR) POC Troponin I
[2023-10-02] MEDS: RIVAROXABAN 10 MG TABLET 20 MG PO (18:11)
[2023-10-02] MEDS: ACETAMINOPHEN 325 MG TABLET PO (19:40)
--- NOTE | 2023-10-02 22:23 | PC.NURSE ---
Shift note ([id number]): The pt has been pleasant and cooperative. Denied chest pain and other acute distress. C/O of mild short of breath with exertion. SPo2 has been in the 90s on 1L of oxygen via NC. Reported small yellowish sputum. Nebs has been given as ordered. No fever noted. The pt c/o of 8/10 headache , Tylenol was given with a good relief. The pt appeared without acute distress
[2023-10-03 04:30] VITALS: BP 107/65; PULSE 81; RESP 18; TEMP 36.9; O2SAT 90
[2023-10-03] MEDS: cefTRIAXone 2 GM in 0.9 % SODIUM CHLORIDE Mini-bag 100 ML IVPB (04:42)
[2023-10-03] MEDS: IPRAT-ALBUT 0.5-2.5 MG/3 ML NEB 1 NEB IH ×2 (04:42→09:27)
[2023-10-03] MEDS: LEVOTHYROXINE 50 MCG TABLET PO (05:56)
[2023-10-03] MEDS: DOXYCYCLINE HYCLATE 100 MG in 0.9 % SODIUM CHLORIDE Mini-bag 100 ML IVPB (06:03)
--- NOTE | 2023-10-03 06:46 | PC.NURSE ---
End of shift nursing note, care [id number]: Pt alert and oriented, pleasant and cooperative. Vitals stable, afebrile, on 1L bled into CPAP at night, maintaining 90% or greater. Pt voiding, no BM noted this shift. Ind in room. Pt denies pain. Occasional cough, received scheduled neb and IV abx. Slept well in between cares. Call light within reach and pt using appropriately.
[2023-10-03 08:00] VITALS: BP 123/78; PULSE 81; PULSE 92; RESP 18; TEMP 36.4; O2SAT 91
[2023-10-03] MEDS: LEVOTHYROXINE 125 MCG TABLET PO (09:26)
[2023-10-03] MEDS: IPRATROPIUM 200 MCG/ML AMPUL.NEB IH ×2 (09:27→12:54)
[2023-10-03] MEDS: ALBUTEROL SULFATE 2.5 MG/3 ML VIAL.NEB NEB ×2 (09:27→12:54)
[2023-10-03] MEDS: BUDESONIDE 0.5 MG/2ML NEB 1 MG NEB (09:27)
[2023-10-03] MEDS: SODIUM CHLORIDE 0.9 % (FLUSH) 10 ML SYRINGE 5 ML IVF (09:28)
[2023-10-03 11:19] VITALS: BP 134/89; PULSE 101; RESP 18; TEMP 36.9; O2SAT 90
[2023-10-03 11:33] VITALS: O2SAT 82; O2SAT 89; O2SAT 90
--- NOTE | 2023-10-03 11:36 | RESP.RT ---
Pt seen. Attempted aerobika, unable to use, secondary to previous cancer surgery. Qualified for oxygen. Pt coughing up blood when he coughs. provider aware. Follow up with pulmonary provider suggested. Pt's recent PFTs show severe obstructive disease and sever restriction possible. BBS diminished with crackles.
--- NOTE | 2023-10-03 13:03 | PM.DS1 ---
DS: Providers Provider Date Seen: 10/03/23 Date of admission: 10/02/23 04:06 Primary care physician: David Pennington MD Admitting Clinician: Arnel Cuevas MD Attending Physician on discharge: Lisa Dodd [facility], PA-C [facility] Hospitalist Date of Discharge: 10/03/23 DS: Diagnosis Discharge Diagnosis (1) Acute on chronic hypoxic respiratory failure: Status: Acute Problem details: Secondary to pneumonia with history of asthma. BNP normal. Further workup of pulmonary disease currently in process with his PCP. Steroids were not initiated during hospitalization. Oxygen saturation at rest, 83% on room air on day of discharge. Home oxygen assessment completed, patient will be discharged with home oxygen and follow-up with PCP. (2) Pneumonia: Status: Acute Problem details: Community-acquired pneumonia, procalcitonin elevated, CT showing multilobar consolidations, started on IV ceftriaxone and doxycycline. Discharge with oral doxycycline and Augmentin to complete 5 day course. Continue home inhalers. Outpatient follow-up with PCP for resolution. (3) Chronic hypercapnic respiratory failure: Status: Chronic Problem details: Noted. VBG CO2 on admission 68. Supplemental oxygen to maintain saturations 88-92% (4) Chronic anticoagulation: Status: Chronic Problem details: For history of PE, continued on rivaroxaban (5) Hypothyroid: Status: Chronic Problem details: Continued on levothyroxine (6) Obstructive sleep apnea: Status: Chronic Problem details: Noted DS: Summary Hospital Course Hospital Course: [age] year old male past medical history significant for chronic hypercapnic respiratory failure, hypothyroidism, obesity, asthma, JAQUAN was admitted to the medical floor for further management acute community-acquired pneumonia. Course of care and details as noted above. Started on IV antibiotics, transition to oral antibiotics and discharge. No steroids were used during hospitalization. Patient requiring oxygen supplementation upon discharge following home assessment. Will need ongoing outpatient management with PCP and pulmonology. Remainder of chronic medical comorbidities were monitored and managed with home medications. Status at Discharge Overall status at discharge: patient is progressing back to baseline Time Spent with Patient Time attestation: Total time spent providing and/or coordinating discharge services: Time spent: Greater than 30 minutes Exam Narrative: Exam Narrative: PHYSICAL EXAM General: Pleasant, conversant, NAD Cardiovascular: RRR Pulmonary: No dyspnea on 1 L NC Neurological: Alert, answering questions appropriately Skin: Warm, dry. Const: Vital Signs, click to edit/add: Vital Signs - 24 hr 10/02/23 15:30 10/02/23 15:30 10/03/23 04:30 Temperature 98.9 F 98.4 F Pulse Rate [Pulse Oximeter] 69 69 81 Respiratory Rate 18 18 18 Blood Pressure [Le ft Arm] 107/69 107/65 Pulse Oximetry 91 90 Oxygen Delivery Me thod Nasal Cannula Nasal Cannula CPAP Oxygen Flow Rate 1 1 10/03/23 08:00 10/03/23 08:00 10/03/23 11:19 Temperature 97.6 F 98.4 F Pulse Rate [Pulse Oximeter] 81 92 101 H Respiratory Rate 18 18 18 Blood Pressure [Le ft Arm] 123/78 134/89 Pulse Oximetry 91 90 Oxygen Delivery Me thod Nasal Cannula CPAP Nasal Cannula CPAP Oxygen Flow Rate 1 1 Discharge Plan Discharge Disposition: Home, Self-Care Date of Admission: 10/02/23 04:06 Attending Provider on Discharge: Lisa Dodd Primary Care Provider: David Pennington Condition: Unchanged Anticipated Discharge Date/Time: 10/03/23 12:54 Discharge Medications: New amoxicillin-pot clavulanate [Augmentin XR] 1,000-62.5 mg tablet extended release 12 hr 1 tab PO BID Qty: 10 0RF doxycycline hyclate 100 mg capsule 100 mg PO BID Qty: 10 0RF Continued albuterol sulfate 90 mcg/actuation HFA aerosol inhaler 2 puff INHALATION Q4-6H PRN levothyroxine 175 mcg tablet 175 mcg PO QAM fluticasone propion-salmeterol [Advair Diskus] 100-50 mcg/dose blister with device 1 ea inhalation BID Xarelto 20 mg tablet 20 mg PO QPM Incruse Ellipta 62.5 mcg/actuation blister with device 1 inh INHALATION DAILY guaifenesin [Mucus Relief ER] 600 mg tablet extended release 12hr 600 mg PO BID Discharge Orders: Discharge Order (Routine); Ordered 10/03/23 Ordered By: Lisa Dodd Patient Education: Bacterial Pneumonia (GEN) Additional Instructions: You will need to complete 2 antibiotics for your pneumonia. Follow up with your PCP for resolution of this infection. Continue to use your inhalers. You will need home oxygen for a bit. Your PCP will help to determine how long you may need this. Follow up with Pulmonology. Activity Level: No Restrictions Discharge Diet: Regular Follow Up Appointments: David Pennington MD [Primary Care Provider] - 10/12/23 (Post hospital follow up, pneumonia, hypercapnia. Currently requiring oxygen.) Forms: [employer] Info Instructions
[2023-10-03 15:45] VITALS: BP 112/79; PULSE 90; RESP 18; TEMP 37.1; O2SAT 90
--- NOTE | 2023-10-03 17:58 | PC.NURSE ---
Discharge. pt has been pleasant and alert x4. no pain he is up ab mindy. 1L NC awake and 1L into CPAP. he is now @ 1L nc. he has a intermittent, non-productive cough. 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 he is getting IV antibotics. he is eating drinking and voiding. nebs given. ok to be discharge. went over discharge packet with pt and . went over medications, appointments, instructions and education, pt went over and signed personal belonging sheet. pt got O2 by RT. and was got instruction by RT. he got a w/c ride out to car with all belongings and paperwork. ?
== END 2023-10-03 16:45 | disposition home or self-care (01) | DRG 193 ==
LOC: ED 23:45 → MEDSURG 10-02 02:01
PROVIDERS: Admitting Provider Internal Medicine; Emergency Provider Emergency Medicine Emergency Medical Services; PCP Family Medicine; Visit Provider Family Medicine
DX: J18.9 Pneumonia, unspecified organism (principal); J96.21 Acute and chronic respiratory failure with hypoxia; J96.22 Acute and chronic respiratory failure with hypercapnia; Z68.42 Body mass index [BMI] 45.0-49.9, adult; J45.909 Unspecified asthma, uncomplicated; Z86.711 Personal history of pulmonary embolism; Z79.01 Long term (current) use of anticoagulants; E66.9 Obesity, unspecified; G47.33 Obstructive sleep apnea (adult) (pediatric); E03.9 Hypothyroidism, unspecified; Z85.46 Personal history of malignant neoplasm of prostate; Z85.818 Personal history of malignant neoplasm of other sites of lip, oral cavity, and pharynx
CPT/HCPCS: 36415; 71045; 71275; 80048; 82803; 83880; 84145; 84484; 85025; 87631; 93005; 94640; 94664; 99285; A9270; J0696; J7626; J7644; Q9967

== ENCOUNTER 2024-04-29 08:22 | Outpatient (CLI) | payer MEDICARE, BC, SELFPAY ==
--- OUTSIDE RECORDS SUMMARY | 2024-04-29 08:26 | XMS_ITS | Clinical Summary ---
Author Organization [facility] Address [address] [place] [address] Care Team Providers Care Iron Piler Name Role Phone David Pennington Primary Care Provider [phone] Dharmesh Montes MD Unavailable [phone] Dharmesh Montes MD Unavailable [phone] Allergies Active Allergy Reactions Criticality Noted Date Comments No Known Drug Allergy 04/11/2011 Medications Medication Sig Dispensed Refills Start Date End Date Status VITAMIN D PO Take by mouth. Active levothyroxine (SYNTHROID/LEVOTHRO ID) 150 MCG tablet Take 175 mcg by mouth 05/28/2019 Active Respiratory Therapy Supplies (CARETOUCH CPAP & BIPAP HOSE) [facility] [place] for [place] use at pressure: [...] Need: 99 months, Frequency of use: Daily 02/15/2021 Active mupirocin (BACTROBAN) 2 % external ointmentIndications :Nasal valve collapse Apply topically 2 times daily 22 g 3 02/23/2021 Active Additional Information Patient not taking.Reported on 07/11/2022 ondansetron (ZOFRAN-ODT) 4 MG ODT tabIndications:Nasa l valve collapse Take 1 tablet (4 mg) by mouth every 6 hours as needed for nausea or vomiting 5 tablet 02/23/2021 Active Additional Information Patient not taking.Reported on 07/11/2022 sodium chloride (OCEAN) 0.65 % nasal sprayIndications:Na bella valve collapse [place] 2 sprays into both nostrils 4 times daily 30 mL 3 02/23/2021 Active oxyCODONE (ROXICODONE) 5 MG tabletIndications:A cute post-operative pain Take 1 tablet (5 mg) by mouth every 4 hours as needed for moderate to severe pain 15 tablet 02/23/2021 Active Additional Information Patient not taking.Reported on 07/11/2022 acetaminophen (TYLENOL) 325 MG tabletIndications:A cute post-operative pain Take 2 tablets (650 mg) by mouth every 4 hours as needed for mild pain 100 tablet 02/25/2021 Active apixaban ANTICOAGULANT (ELIQUIS) 5 MG tablet Take 5 mg by mouth 2 times daily 12/27/2021 Active ipratropium (ATROVENT) 0.03 % nasal sprayIndications:VM R (vasomotor rhinitis) [place] 2 sprays into both nostrils every 12 hours 30 mL 1 07/11/2022 Active albuterol (PROAIR HFA/PROVENTIL HFA/VENTOLIN HFA) 108 (90 Base) MCG/ACT inhaler Inhale 1-2 puffs into the lungs 05/17/2023 Active ADVAIR DISKUS 100-50 MCG/ACT inhaler 06/26/2023 Active XARELTO ANTICOAGULANT 20 MG TABS tablet TAKE ONE TABLET BY MOUTH ONCE DAILY WITH EVENING MEAL Active Fluticasone-Umeclid in-Vilant (TRELEGY ELLIPTA) 100-62.5-25 MCG/ACT oral inhaler Inhale 1 puff into the lungs daily Active benzonatate (TESSALON) 100 MG capsuleIndications: Bronchitis Take 1 capsule (100 mg) by mouth 3 times daily as needed for cough 100 capsule 1 04/01/2024 Active Active Problems Problem Noted Date Diagnosed Date Brow ptosis, bilateral 09/06/2020 Overview: Added automatically from request for surgery [id number] Visual field defect 09/06/2020 Overview: Added automatically from request for surgery [id number] 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 Overview: Added automatically from request for surgery [id number] Morbid obesity 07/08/2020 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 06/18/2020 Overview: Added automatically from request for surgery [id number] Nasal obstruction 06/18/2020 Overview: Added automatically from request for surgery [id number] Nasal deformity 06/18/2020 Overview: Added automatically from request for surgery [id number] Facial paralysis 04/14/2020 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 Encounters Date Type Department Care Team Description 04/01/2024 3:40 PM CDT Virtual Visit [facility] Th[facility] [address] [address] Dharmesh Montes MD Bronchitis; Sensorineural hearing loss (SNHL) of left ear with unrestricted hearing of right ear; Adenoid cystic carcinoma (H) 03/05/2024 Telephone [facility] Th[facility] [address] [address] Dharmesh Montes MD 03/04/2024 3:20 PM CDT Office Visit [facility] [address] [address] Dharmesh Montes MD Bronchitis (Primary Dx); Sensorineural hearing loss (SNHL) of left ear with unrestricted hearing of right ear; Adenoid cystic carcinoma (H) 03/04/2024 2:30 PM CDT Office Visit [facility] Audiology [address] [address] Sol Barrientos AuD Sensorineural hearing loss (SNHL) of right ear with restricted hearing of left ear (Primary Dx); Mixed conductive and sensorineural hearing loss of left ear with restricted hearing of right ear; Sensorineural hearing loss (SNHL) of left ear with unrestricted hearing of right ear 03/04/2024 Travel from Last 3 Months Family History [...] PHQ-2 Answer Date Recorded PHQ-2 Score 0 01/08/2024 Adolescent Education Answer Date Record ed Getting School Help Needed Not on file 05/19 Sex and Gender Information Value Date Recorded Sex Assigned at Not on file Gender Identity Not on file Sexual Orientation Not on file Last Filed Vital Signs Vital Sign Reading Time Taken Comments Blood Pressure 141/81 01/08/2024 10:19 AM CDT Pulse 67 01/08/2024 10:19 AM CDT Temperature 36.9 ??C (98.4 ??F) 03/02/2021 1 0:40 AM CDT Respiratory Rate 16 02/23/2021 7:32 AM CDT Oxygen Saturation 94% 01/08/2024 10: 19 AM CDT Inhaled Oxygen Concentration - - Weight 151.2 kg (333 lb 6.4 oz) 024 10:19 AM CDT Height 182.9 cm (6') 03/04/2024 3:25 PM CDT Body Mass Index 45.22 07/11/2022 8:42 AM LINE WORKER Plan of Treatment Health Maintenance Due Date Last Done Comments ADVANCE CARE PLANNING 1955 ANNUAL REVIEW OF HM ORDERS [address] CT COLONOGRAPHY 1957 FIT 1957 FLEX SIG 1957 TSH W/FREE T4 REFLEX 1957 sDNA (Cologuard) 1957 HEPATITIS C SCREENING 1975 LIPID 1997 RSV VACCINE (1 - 1-dose 60+ series) 2017 COVID-19 Vaccine ( season) 2023 06/01/2023, 05/22/2022, 07/12/2021, Additional history exists GLUCOSE 02/24/2024 02/23/2021, 01/26, 02/22/2021 INFLUENZA VACCINE (#1) 2024 , 06/22/2022, 08/19/2021, Additional history exists MEDICARE ANNUAL WELLNESS VISIT 08/01/2024 08/01/2023, 07/31/2022, 08/09/2020 FALL RISK ASSESSMENT 01/07/2025 01/08/2024 DTAP/TDAP/TD IMMUNIZATION (4 - Td or Tdap) 03/11/2028 03/11/2018, 04/01/2008, 07/07/1997, Additional history exists COLONOSCOPY 12/09/2033 12/10/2023, 03/08/2020, 09/01/2020, Additional history exists COLORECTAL CANCER SCREENING 12/09/2033 ZOSTER IMMUNIZATION Completed 08/04/2019, 9 Pneumococcal Vaccine: 65+ Years Completed 07/31/2022, 05/28/2020 PHQ-2 (once per calendar year) Completed 01/08/2024, 07/11/2022, 08/09/2021, Additional history exists HPV IMMUNIZATION Aged Out No longer e ligible based on patient's age to complete this topic MENINGITIS IMMUNIZATION Aged Out No l onger eligible based on patient's age to complete this topic RSV MONOCLONAL ANTIBODY Aged Out No l onger eligible based on patient's age to complete this topic Medical Devices Implanted Type Area Upfitter Device Identifier Shelf Expiration Date Model / Serial / Lot Eye Imp Lid [place] Weight 1.4 Gram Thin Profile Implanted:Qty: 1 on 05/04/2016 by Michael Brooks MD at [facility] Left: Eyelid [employer] 07/26/2016 [id number] / / [id number] Costal Cartilage Implanted:Qty: 1 on 02/22/2021 by Libertad Russ MD at [facility] Bilateral: Nose MUSCULOSKELETAL TRANSPLANT [employer]OUNDAT. 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 ear AUDIOGRAM/TYMPANOGRAM - INTERFACE 03/04/2024 2:36 PM CDT GLUCOSE BY METER Routine 02/23/2021 6:10 AM CDT Nasal valve collapse COLONOSCOPY - HIM SCAN Routine 08/12/2012 from Last 3 Months or Most Recently Relevant to Health Maintenance Results * Audiogram/ABR/OAE/Tymp - HIM Scan (03/04/2024 2:36 PM CDT) 03/04/2024 2:36 PM CDT Provider Unknown PROCEDURES * Glucose by meter (02/23/2021 6:10 AM CDT) Glucose 98 70 - 99 mg/dL 02/23/2021 6:17 AM CDT POINT OF CARE TEST, GLUCOSE 02/23/2021 6:10 AM CDT 02/23/2021 6:17 AM CDT Libertad Russ MD [facility] POCT Performing Organization Address City/State/[facility] Co de Phone Number POINT OF CARE TEST, GLUCOSE * Colonoscopy - HIM Scan (08/12/2012) 08/12/2012 Narrative Sonya Mixon CMA - 08/12/2012 [facility] Everywhere Provider Outside PROCEDURES from Last 3 Months or Most Recently Relevant to Health Maintenance Advance Directives For more information, please contact: [phone] * Full Code (Latest Code Status on File) Date Activated Date Inactivated Comments 02/22/2021 5:30 PM 02/23/2021 11:53 AM All basic a nd advanced life-sustaining interventions are performed as appropriate Question Answer Comments Code status determined by: Discussion with curry nt/ legal decision maker Care Teams Iron Piler Relationship Specialty Start Date End Date David Pennington PCP - General 01/25/11 Dharmesh Montes MD [address] [place] [address] Otolaryngology 05/20/21 Dharmesh Montes MD [address] [address] Assigned Surgical Provider 07/15/22
--- OUTSIDE RECORDS SUMMARY | 2024-04-29 08:26 | XMS_ITS | Encounter Summary ---
Author Organization [employer] Address [address] [place] [address]. [place] [address] Care Team Providers Care Paper Supervisor Name Role Phone David Pennington Primary Care Provider [phone] Dharmesh Montes MD Unavailable [phone] Dharmesh Montes MD Unavailable [phone] Encounter Details Date Type Department Care Team (Late st Contact Info) Description 03/05/2024 Telephone [facility] [address] [place] [address] Dharmesh Montes MD [address] [address] Social History Tobacco Use Types [...] on file documented as of this encounter Miscellaneous Notes * Telephone Encounter - Antoine Olivier - 03/05/2024 8:38 AM CDT Patient confirmed scheduled appointment: Date: 04/01 Time: 3:40pm Visit type: Return ENT Provider: Dr. Montes Location: Virtual Testing/imaging: Additional notes: documented in this encounter Plan of Treatment Not on file documented as of this encounter Visit Diagnoses Not on filedocumented in this encounter Care Teams Paper Supervisor Relationship Specialty Start Date End Date David Pennington PCP - General 01/25/11 Dharmesh Montes MD [address] [place] [address] Otolaryngology 05/20/21 Dharmesh Montes MD [address] [place] [address] Assigned Surgical Provider 07/15/22 documented as of this encounter
--- OUTSIDE RECORDS SUMMARY | 2024-04-29 08:26 | XMS_ITS | Encounter Summary ---
Author Organization [facility] Address [address] [place] [address] Care Team Providers Care Value Stream Manager Name Role Phone David Pennington Primary Care Provider [phone] Dharmesh Montes MD Unavailable [phone] Dharmesh Montes MD Unavailable [phone] Reason for Visit * Audiology (Routine: Next available opening) - Pending Review Specialty Diagnoses / Procedures Referred By Contcatarino t Referred To Contact Audiology Diagnoses Sensorineural hearing loss (SNHL) of left ear with unrestricted hearing of right ear Dharmesh Montes MD [address] [facility] [address] [place] [address] Referral ID Status Reason Start Date Expiration Date Visits Requested Visits Authorized [id number] Pending Review Assess and Evaluate 03/04/2024 03/04/2025 1 1 Encounter Details Date Type Department Care Team (Latest Contact Info) Description 03/04/2024 2:30 PM CDT Office Visit [facility] Audiology [address] [place] [address] Sol Barrientos, [facility] [address] [place] [phone] Sensorineural hearing loss (SNHL) of right ear with restricted hearing of left ear (Primary Dx); Mixed conductive and sensorineural hearing loss of left ear with restricted hearing of right ear; Sensorineural hearing loss (SNHL) of left ear with unrestricted hearing of right ear Social History Tobacco Use Types Packs/Day Years [...] as of this encounter Progress Notes * Sol Barrientos AuD - 03/04/2024 2:30 PM CDT AUDIOLOGY REPORT SUMMARY: Audiology visit completed. See audiogram for results. RECOMMENDATIONS: Follow-up with ENT. Saud Crawford CCC[place] #[id number] documented in this encounter Plan of Treatment Not on file documented as of this encounter Procedures Procedure Name Priority Date/Time Associated Diagnosis Comments [place] COMPREHENSIVE HEARING TEST Routine 03/04/2024 3:13 PM CDT Sensorineural hearing loss (SNHL) of right ear with restricted hearing of left ear Mixed conductive and sensorineural hearing loss of left ear with restricted hearing of right ear OK TYMPANOMETRY AND REFLEX THRESHOLD MEASUREMENTS Routine 03/04/2024 3:13 PM CDT Sensorineural hearing loss (SNHL) of right ear with restricted hearing of left ear Mixed conductive and sensorineural hearing loss of left ear with restricted hearing of right ear AUDIOGRAM/TYMPANOGRAM - INTERFACE 03/04/2024 2:36 PM CDT documented in this encounter Results * Audiogram/ABR/OAE/Tymp - HIM Scan (03/04/2024 2:36 PM CDT) 03/04/2024 2:36 PM CDT Provider Unknown PROCEDURES documented in this encounter Visit Diagnoses Diagnosis Sensorineural hearing loss (SNHL) of right ear with restricted hearing of left ear- Primary 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
--- OUTSIDE RECORDS SUMMARY | 2024-04-29 08:26 | XMS_ITS | Encounter Summary ---
Author Organization [facility] Address [address] [place] [address] Care Team Providers Care Napping Machine Operator Name Role Phone David Pennington Primary Care Provider [phone] Dharmesh Montes MD Unavailable [phone] Dharmesh Montes MD Unavailable [phone] Encounter Details Date Type Department Care Team (Latest Contact Info) Description 03/04/2024 Travel Social History Tobacco Use Types Packs/Day [...] on filedocumented in this encounter Care Teams Napping Machine Operator Relationship Specialty Start Date End Date David Pennington PCP - General 01/25/11 Dharmesh Montes MD [address] [place] [address] [address] [place], [place] [address] Otolaryngology 05/20/21 Dharmesh Montes MD 420 [facility] [address] [place] [address] Assigned Surgical Provider 07/15/22 documented as of this encounter
--- OUTSIDE RECORDS SUMMARY | 2024-04-29 08:26 | XMS_ITS | Encounter Summary ---
Author Organization [facility] Address [address] [place] [address] Care Team Providers Care Distribution Clerk Name Role Phone David [place] Primary Care Provider [phone] Dharmesh Montes MD Unavailable [phone] Dharmesh Montes MD Unavailable [phone] Reason for Referral * Diagnostic Imaging CT Scan (Routine) - Authorized Specialty Diagnoses / Procedures Referred By Contac t Referred To Contact Radiology. Diagnoses Adenoid cystic carcinoma (H) Procedures CT Chest w contrast* Dharmesh Montes MD [address] [facility] [address] [place] [address] Referral ID Status Reason Start Date Expiration Date V isits Requested Visits Authorized [id number] Authorized 04/01/2024 04/01/2025 1 1 * Diagnostic Imaging CT Scan (Routine) - Authorized Specialty Diagnoses / Procedures Referred By Contac t Referred To Contact Radiology. Diagnoses Adenoid cystic carcinoma (H) Procedures CT Soft tissue neck w contrast Dharmesh Montes MD [address] [facility] [address] [place] [address] Referral ID Status Reason Start Date Expiration Date V isits Requested Visits Authorized [id number] Authorized 04/01/2024 04/01/2025 1 1 Encounter Details Date Type Department Care Team (Late st Contact Info) Description 04/01/2024 3:40 PM CDT Virtual Visit [facility] [address] 4th [place] [address] Dharmesh Montes MD [address] [facility] [address] [place] [address] Bronchitis; Sensorineural hearing loss (SNHL) of left ear with unrestricted hearing of right ear; Adenoid cystic carcinoma (H) Social History Tobacco [...] Progress Notes * Dharmesh Montes MD - 04/01/2024 3:40 PM CDT Spoke with the patient today from 4 to 4:05 PM as well as his . He has not gotten a hearing aidevaluation yet may not want to do that we thought that he might have it already done by this point in time. He had some questions about different types of hearing aids I said that it might be reasonable for somebody sticking about just simple amplification to go ahead and use one of the vhbr-[id number]-vpnvhop devices that can be gotten for small amounts of money these days they may go ahead and check on their insurance and check with us for more formal hearing evaluation otherwise is addended's is a cancer patient and we will see again in 11 months with scans family understands agrees and will call for any further problems he has his hearing asymmetry and is mostly because of the radiation he received documented in this encounter Plan of Treatment Scheduled Orders Name Type Priority Associated Diagnoses Orde r Schedule CT Soft tissue neck w contrast Imaging Routine Adenoid cystic carcinoma (H) Expected: 04/01/2024 (Approximate), Expires: 04/01/2025 CT Chest w contrast* Imaging Routine Adenoid cystic carcinoma (H) Expected: 04/01/2024 (Approximate), Expires: 04/01/2025 documented as of this encounter Visit Diagnoses Diagnosis Bronchitis Bronchitis, not specified as acute or chronic Sensorineural hearing loss (SNHL) of left ear with unrestricted hearing of right ear Adenoid cystic carcinoma (H) Other malignant neoplasm without specification of site documented in this encounter Care Teams Distribution Clerk Relationship Specialty Start Date End Date David [place] PCP - General 01/25/11 Dharmesh Montes MD [address] [place] [address] Otolaryngology 05/20/21 Dharmesh Montes MD [address] [place] [address] Assigned Surgical Provider 07/15/22 documented as of this encounter
--- OUTSIDE RECORDS SUMMARY | 2024-04-29 08:26 | XMS_ITS | Clinical Summary ---
Author Organization [facility] Address [place], [place] [address] Care Team Providers Care Joy Operator Name Role Phone David [place] MD Primary [...] use: Daily 1 Device 11 02/15/2021 Active albuterol HFA (PRO-AIR; VENTOLIN; PROVENTIL) 90 mcg/actuation inhalerIndications:Ch ronic cough Inhale 1-2 Puffs by mouth every 4 hours if needed for Shortness Of Breath. 1 Each 2 05/17/2023 Active fluticasone furoate-vilanteroL (Breo Ellipta) 100-25 mcg/dose inhalerIndications:Mi ld persistent asthma with exacerbation Inhale 1 Puff by mouth once daily. 60 Each 06/04/2023 Active levothyroxine (SYNTHROID) 175 mcg tabletIndications:Acq uired hypothyroidism Take 1 Tablet (175 mcg) by mouth before breakfast. 90 Tablet 3 08/01/2023 Active Trelegy Ellipta 100-62.5-25 mcg inhaler INHALE 1 PUFF BY MOUTH AT THE SAME TIME EVERY DAY 09/21/2023 Active predniSONE (DELTASONE) 20 mg tabletIndications:Sen sorineural hearing loss (SNHL) of both ears Take 1 Tablet (20 mg) by mouth once daily with a meal. 10 Tablet 12/21/2023 Active rivaroxaban (XARELTO) 20 mg tabletIndications:Oth er pulmonary embolism without acute cor pulmonale, unspecified chronicity (HC) Take 1 Tablet (20 mg) by mouth once daily with evening meal. 90 Tablet 4 03/11/2024 Active Active Problems Problem Noted Date Diagnosed Date Encounter for colonoscopy in patient with family history of colon cancer 12/11/2023 Adenoid cystic carcinoma of parotid gland 2021 [...] Personal history of colonic polyps Prostate cancer Resolved Problems Problem Noted Date Diagnosed Date Resolved Date Septic shock due to undetermined organism 07/20/2016 08/21/2019 Unspecified sleep apnea 08/29/200607/28 Pulmonary emboli 12/23/2023 Encounters Date Type Department Care Team Description 04/02/2024 Medical Messaging [facility] [address] [facility] [place] [address] Ernst Day MD Possible injection 03/26/2024 10:15 AM CDT Orders Only [facility] [address] [place] [address] Lab, [place] [facility] (/) 03/26/2024 Travel 03/18/2024 Telephone [facility] [address] [facility] [address] David [place] MD Lab 03/14/2024 Orders Only [address] [place] [address] David [place] MD Outside Order (Order Date, 04/10/2023, Blanche... 03/13/[address] [place] [address] David [place] MD Questions (following up on xarelto ) 03/11/[address] [place] [address] David [place] MD Medication Management (xarelto) from Last 3 Months Immunizations Name Administration Dates Next Due COVID-19 vaccine (Ebuzzing and Teads 30mcg/0.3mL) STAN AVILA 12/02/2020,11/11/2020 Influenza Virus, Unspecified 05/28/2021 Influenza, IIV3 [...] Answer Date Recorded PHQ-2 TOTAL SCORE 0 12/21/2023 Social Connections Answer Date Recorded Frequency of [...] Sign Reading Time Taken Comments Blood Pressure 138/80 12/21/2023 1:54 PM CDT Pulse 81 12/10/2023 11:00 AM CDT Temperature 36.9 ??C (98.4 ??F) 12/10/2023 8:33 AM CD T Respiratory Rate 16 12/10/2023 11:00 AM CDT Oxygen Saturation 90% 12/10/2023 11:00 AM CDT Inhaled Oxygen Concentration - - Weight 150.4 kg (331 lb 8 oz) 12/21/2023 1:54 PM CDT Height 181.6 cm (5' 11.5) 12/21/2023 1:54 PM CD T Body Mass Index 45.59 12/21/2023 1:54 PM CDT Plan of Treatment Upcoming Encounters Date Type Department Care Team (Late st Contact Info) Description 04/29/2024 9:00 AM CDT Office Visit [facility] at [facility] [address] [place] [address] Ernst Day MD [address] [place] [address] Arrived 06/23/2024 10:40 AM CDT Office Visit [facility] [address] [place] [address] Ernst Day MD [address] [place] [address] 07/10/2024 10:00 AM ORDER CHECKER PACKER PROCESSER Office Visit [facility] [address] [place] [address] Prince Escobar MD [address] [place] [address] Health Maintenance Due Date Last Done Comments COVID-19 vaccine series ( season) 2024 06/01/2023, 05/22/2022, 07/12/2021, Additional history exists Influenza for age 65+ 04/27/2024 05/17/2023 , 06/22/2022, 08/19/2021, Additional history exists Medicare Wellness for age 65+ 08/01/2024 08/01/2023, 07/31/2022 BMI (ht and wt on same day) for age 18+ 12/20/2024 12/21/2023, 10/10/2023, 08/01/2023, Additional history exists Depression screening for age 12+ 12/20/2024 12/21/2023, 07/31/2022, 08/09/2020, Additional history exists Colonoscopy through age 75 12/09/202612/09, 10/25/2020, 08/17/2017, Additional history exists Tetanus booster 03/11/2028 03/11/2018, 08/0 01/2008, 07/07/1997 Lipids for age 45-75 07/25/2028 07/25/2023, 07/25/2022, 08/15/2021, Additional history exists Tdap Completed 03/11/2018, 04/01/2008 Hepatitis C screening for ag e 18-79 Completed 05/24/2019, 12/17/2014 Zoster (shingles) series for age 50+ Completed 08/04/2019, 05/28/2019 Pneumococcal series for age 65+ Completed 2, 05/28/2020 Procedures Procedure Name Priority Date/Time Associated Diagnosis Comments AMB EPIDURAL STEROID INJECTION Routine 04/29/2024 8:19 AM CDT Lumbar radiculopathy DDD (degenerative disc disease), lumbar Chronic right hip pain PSA TOTAL (DIAGNOSTIC) Routine 03/26/2024 10:37 AM CDT Malignant neoplasm of prostate (HC) COLONOSCOPY 12/10/2023 9:30 AM CDT LIPID PANEL W REFLEX MEASURED LDL Routine 07/25/2023 8:41 AM ORDER CHECKER PACKER PROCESSER Acquired hypothyroidism ANTI HCV Routine 05/24/2019 9:30 AM CDT Well adult exam from Last 3 Months or Most Recently Relevant to Health Maintenance Results * PSA TOTAL (DIAGNOSTIC) (03/26/2024 10:37 AM CDT) PSA TOTAL (DIAGNOSTIC) 0.24 <4.00 ng/mL 03/26/2024 6:51 PM CDT [facility] Blood BLOOD SPECIMEN / Unknown Butterfly / Unknown 03/26/2024 10:37 AM CDT 03/26/2024 10:38 AM CDT Narrative [facility] - 03/26/2024 6:51 PM CDT The test method changed on 02/20/2023. If this test has been used for serial monitoring, rebaselining is recommended. Rebaselining consists of 2 measurements, collected 3-6 weeks apart. The Eva Elecsys total PSA assay is an electrochemiluminescence immunoassay ECLIA performed on the Eva Marcus e immunoassay analyzers. Values obtained with different assay methods may be different and cannot be used interchangeably. David [place] MD CHEMISTRY [facility] [address] [place] [address], * COLONOSCOPY (12/10/2023 9:30 AM CDT) 12/10/2023 9:30 AM CDT Narrative Transcriptions Melissa Pena DO - 12/10/2023 10:30 AM CDT Patient Name: Arnel Ng Procedure Date: 12/10/2023 Gender: Male Date of : 1955 Admit Type: Ambulatory Procedure: Colonoscopy Proceduralist: Melissa Pena MD Referring MD: David [place] MD Indications/Pre-Op Diagnosis: High risk colon cancer surveillance:Personal history of colonic polyps Medications: Monitored Anesthesia Care Procedure Description: The patient had risks, benefits and alternatives explained to andgave informed consent. The patient had a stable cardiopulmonary status and judged an adequate candidate for conscious sedation. The endoscope [id number] was passed through the anus andadvanced to the cecum, identified by appendiceal orifice and ileocecal valve.The colonoscopy was performed without difficulty. The patient toleratedthe procedure well. The quality of the bowel preparation was adequate to identify polyps. The ileocecal valve, appendiceal orifice, and rectum were photographed. Complications: No immediate complications. Estimated Blood Loss & Specimen: Estimated blood loss: none. Specimen collected - None Findings: The perianal and digital rectal examinations were normal. Pertinent negatives include normal sphincter tone, no palpable rectal lesions, normal prostate (size, shape, and consistency), no anal lesion or abnormality and normal stool Hemoccult. The entire examined colon appeared normal. Impressions/Post-Op Diagnosis: - The entire examined colon is normal. - No specimens collected. Recommendation: - Patient has a contact number available for emergencies. The signsand symptoms of potential delayed complications were discussed with the patient. Return to normal activities tomorrow. Written discharge instructions were provided to the patient. - Discharge patient to home (ambulatory). - Resume previous diet. - Continue present medications. - Repeat colonoscopy in 5 years for surveillance. Melissa Pena MD 12/10/2023 10:30:36 AM This report has been signed electronically. Note Initiated On: 12/10/2023 9:30 AM Melissa Pena DO PROCEDURE ORD * LIPID PANEL W REFLEX MEASURED LDL (07/25/2023 8:41 AM ORDER CHECKER PACKER PROCESSER) CHOLESTEROL,TOTAL 173 100 - 199 mg/dL 07/25/2023 6:53 PM ORDER CHECKER PACKER PROCESSER [facility] Comment: Cholesterol, Total Reference Ranges Desirable <200 mg/dL Borderline 200-239 mg/dL High >=240 mg/dL TRIGLYCERIDES 72 <150 mg/dL 07/25/2023 6:53 PM ORDER CHECKER PACKER PROCESSER [facility] HDL CHOLESTEROL 52 >40 mg/dL 6:53 PM ORDER CHECKER PACKER PROCESSER [facility] NON-HDL CHOLESTEROL 121 <145 mg/dl 07/25/2023 6:53 PM ORDER CHECKER PACKER PROCESSER [facility] CHOL/HDL RATIO 3.33 <4.50 07/25/2023 6:53 PM ORDER CHECKER PACKER PROCESSER [facility] LDL CHOLESTEROL 107 <=130 mg/dL 07/25/2023 6:53 PM ORDER CHECKER PACKER PROCESSER [facility] VLDL CHOLESTEROL 14 <=30 mg/dL 07/25/2023 6:53 PM ORDER CHECKER PACKER PROCESSER [facility] PROVIDER ORDERED STATUS RANDOM 07/25/2023 6:53 PM [facility] Blood BLOOD SPECIMEN / Unknown Venipuncture / Unknown 07/25/2023 8:41 AM ORDER CHECKER PACKER PROCESSER 07/25/2023 8:45 AM ORDER CHECKER PACKER PROCESSER David [place] MD [facility] [address] [place] [address], * ANTI HCV (05/24/2019 9:30 AM CDT) HEPATITIS C ANTIBODY Non-React mirtha Non-React mirtha 05/24/2019 1:30 PM CDT [facility] Comment:Antibodies to HCV no t detected; does not exclude the possibility of exposure to HCV. Blood BLOOD SPECIMEN / Unknown Butterfly / Unknown 05/24/2019 9:30 AM CDT 05/24/2019 9:30 AM CDT David [place] MD SEND OUTS [facility] [address] [place] [address], from Last 3 Months or Most Recently Relevant to Health Maintenance Advance Directives * Full Code (Latest Code Status on File) Date Activated Date Inactivated Comments 12/10/2023 8:13 AM 12/10/2023 1:15 PM Question Answer Comments Code Status Discussion: Discussed * Full Code Date Activated Date Inactivated Comments 10/25/2020 7:23 AM 10/25/2020 12:20 PM Question Answer Comments Code Status Discussion: Per Existing Order * Full Code Date Activated Date Inactivated Comments 08/17/2017 8:23 AM 08/17/2017 12:54 PM * Full Code Date Activated Date Inactivated Comments 04/17/2017 10:06 AM 04/17/2017 6:47 PM * Full Code Date Activated Date Inactivated Comments 07/19/2016 7:55 PM 07/24/2016 7:00 PM Care Teams Joy Operator Relationship Specialty Start Date End Date David [place] MD [address] [place] [address] PCP - General Family Practice 12/10/18
--- OUTSIDE RECORDS SUMMARY | 2024-04-29 08:26 | XMS_ITS ---
Author Organization [facility] Address [address] [place] [address] Care Team Providers Care Half Backer Name Role Phone Elsewhere, Pcp Primary Care [...] Treated Prescribed Fraction Dose Prescribed Total Dose [id number] 03/27/2022 27 20 of 20 300 cGy 6,000 cGy Reference Point Last Treated On Elapsed Days Session Dose Total Dose [id number] 03/27/2022 27 300 cGy 6,000 cGy
--- OUTSIDE RECORDS SUMMARY | 2024-04-29 08:26 | XMS_ITS | Referral Summary ---
Author Organization [facility] Address [address] [place] [address] Care Team Providers Care Advertising Sales Representative Name Role Phone David [place] Primary Care Provider Dharmesh Montes MD Unavailable Dharmesh Montes MD Unavailable [phone] Encounters Date Type Department Care Team Description 04/01/2024 3:40 PM CDT Virtual Visit [facility] [address] [phone] Dharmesh Montes MD Bronchitis; Sensorineural hearing loss (SNHL) of left ear with unrestricted hearing of right ear; Adenoid cystic carcinoma (H) 03/05/2024 Telephone [facility] [address] [address] Dharmesh Montes MD 03/04/2024 Travel 03/04/2024 3:20 PM CDT Office Visit [facility] [address] [address] Dharmesh Montes MD Bronchitis (Primary Dx); Sensorineural hearing loss (SNHL) of left ear with unrestricted hearing of right ear; Adenoid cystic carcinoma (H) 03/04/2024 2:30 PM CDT Office Visit [facility] Aud[facility] [address] [phone] Sol Barrientos, Reza Sensorineural hearing loss (SNHL) of right ear with restricted hearing of left ear (Primary Dx); Mixed conductive and sensorineural hearing loss of left ear with restricted hearing of right ear; Sensorineural hearing loss (SNHL) of left ear with unrestricted hearing of right ear from Last 3 Months Allergies Active Allergy Reactions Criticality Noted Date Comments No Known Drug Allergy 04/11/2011 Medications Medication Sig Dispensed Refills Start Date End Date Status VITAMIN D PO Take by mouth. Active levothyroxine (SYNTHROID/LEVOTHRO ID) 150 MCG tablet Take 175 mcg by mouth 05/28/2019 Active Respiratory Therapy Supplies (CARETOUCH CPAP & BIPAP HOSE) [facility] BIPAP machine for home use at pressure: [...] 0.65 % nasal sprayIndications:Na bella valve collapse Tolono 2 sprays into both nostrils 4 times [...] 0.03 % nasal sprayIndications:VM R (vasomotor rhinitis) Tolono 2 sprays into both nostrils every 12 [...] Overview: Added automatically from request for surgery [id number] Visual field defect 09/06/2020 Overview: Added automatically from request for surgery [id number] 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 Overview: Added automatically from request for surgery [id number] Morbid obesity 07/08/2020 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 06/18/2020 Overview: Added automatically from request for surgery [id number] Nasal obstruction 06/18/2020 Overview: Added automatically from request for surgery [id number] Nasal deformity 06/18/2020 Overview: Added automatically from request for surgery [id number] Facial paralysis 04/14/2020 Adenoid cystic carcinoma of [...] Body Mass Index 45.22 07/11/2022 8:42 AM BEATER OPERATOR Plan of Treatment Not on file Medical Devices Implanted Type Area Manager Assembly Device Identifier Shelf Expiration Date Model / Serial / Lot Eye Imp Lid [place] Weight 1.4 Gram Thin Profile Implanted:Qty: 1 on 05/04/2016 by Michael Brooks MD at [facility] Left: Eyelid [employer] 07/26/2016 [id number] / / [id number] Costal Cartilage Implanted:Qty: 1 on 02/22/2021 by Libertad Russ MD at [facility] Bilateral: Nose MUSCULOSKELETAL TRANSPLANT [employer]OUNDAT. 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 ear RI COMPREHENSIVE HEARING TEST Routine 03/04/2024 3:13 PM [...] 02/23/2021 6:17 AM CDT Libertad Russ MD [facility] POCT POINT OF CARE TEST, GLUCOSE * Colonoscopy - HIM Scan (08/12/2012) 08/12/2012 Narrative Sonya Mixon CMA - 08/12/2012 [facility] Everywhere Provider Outside PROCEDURES from Last 3 Months or Most Recently Relevant to Health Maintenance Advance Directives For more information, please contact: [phone] * Full Code (Latest Code Status on File) Date Activated Date Inactivated Comments 02/22/2021 5:30 PM 02/23/2021 11:53 AM All basic a nd advanced life-sustaining interventions are performed as appropriate Question Answer Comments Code status determined by: Discussion with curry nt/ legal decision maker Care Teams Advertising Sales Representative Relationship Specialty Start Date End Date David [place] PCP - General 01/25/11 Dharmesh Montes MD [address] [address] Otolaryngology 05/20/21 Dharmesh Montes MD [address] [address] Assigned Surgical Provider 07/15/22
--- OUTSIDE RECORDS SUMMARY | 2024-04-29 08:26 | XMS_ITS | Encounter Summary ---
Author Organization [facility] Address [address] [place] [address] Care Team Providers Care Head Doffer Name Role Phone Elsewhere, Pcp Primary Care Provider Unavailabl e Encounter Details Date Type Department Care Team (Latest Contact Info) Description 03/10/2024 7:03 AM CDT - 03/10/2024 11:59 PM CDT Hospital Encounter Department of Laboratory Medicine and Pathology, [facility], in [place], [place] [address] [place] [phone] Anabel Cunningham P.A.-C., M.S. [address] [place] [address] Primary Malignant Neoplasm Of Prostate (HCC) Discharge [...] often do you attend chur ch or latter-day services? Patient declined 09/20/2022 Do you belong to any clubs o r organizations such as sikh groups, unions, fraternal or athletic groups, or [...] and heating? Not hard at all 09/20/2022 [facility] - Occupational [...] place to sleep or slept in a mcc (including now)? No 09/20/2022 Nutrition Answer Date [...] tablet Take 1 tablet by mouth daily. 04/05/2010 gabapentin (NEURONTIN) 300 mg capsule Take 300 mg by mouth at bedtime. 02/01/2023 levothyroxine (SYNTHROID, LEVOTHROID) 175 mcg tablet Take 175 mcg by mouth every morning before breakfast. 07/31/2022 sildenafiL (Viagra) 100 mg tablet Take 0.5-1 tablets (50-100 mg total) by mouth as needed for erectile dysfunction. 10 tablet 3 09/25/2022 Xarelto 20 mg tablet Take 20 mg by mouth daily with dinner. 08/28/2022 documented as of this encounter Plan of Treatment Scheduled Orders Name Type Priority Associated Diagnoses Orde r Schedule PSA (Prostate-Specific Antigen), Diagnostic Lab Routine Primary Malignant Neoplasm Of Prostate (HCC) Once for 1 Occurrences starting 03/10/2024 until 03/10/2024 documented as of this encounter Visit Diagnoses Diagnosis Primary Malignant Neoplasm Of Prostate (HCC) documented in this encounter Care Teams Head Doffer Relationship Specialty Start Date End Date Elsewhere, Pcp PCP - General Family Medicine 04/06/23 documented as of this encounter
--- OUTSIDE RECORDS SUMMARY | 2024-04-29 08:26 | XMS_ITS | Encounter Summary ---
Author Organization [facility] Address [address] [place] [address] Care Team Providers Care Mechanical Service Representative Name Role Phone David [place] Primary Care Provider Libertad Russ MD Unavailable [phone] Dharmesh Montes MD Unavailable [phone] Dharmesh Montes MD Unavailable Reason for Visit * Reason Onset Date Comments Previsit 02/08/2021 Encounter Details Date Type Department Care Team (Late st Contact Info) Description 02/08/2021 PRE VISIT [facility] Preoperative Assessment Center [address]th [place] [address] Gina Juarez APRN [facility] [address] [place] [address] Previsit Social History Tobacco Use Types Packs/Day [...] on filedocumented in this encounter Care Teams Mechanical Service Representative Relationship Specialty Start Date End Date David [place] PCP - General 01/25/11 Libertad Russ MD [address] [id number] Assigned Surgical Provider 06/18/20 Dharmesh Montes MD [address] [place] [id number] Otolaryngology 05/20/21 Dharmesh Montes MD [address] [place] [id number] Assigned Surgical Provider 07/15/22 documented as of this encounter
--- OUTSIDE RECORDS SUMMARY | 2024-04-29 08:26 | XMS_ITS ---
Author Organization [facility] Address [address] [place] [address] Care Team Providers Care Revolving Inventory Clerk Name Role Phone Unavailable Unavailable Unavailable Surgery Details Not on file Complications Check Surgery Details section. Procedure Estimated Blood Loss Check Surgery Details section. Procedure Findings Check Surgery Details section. Procedure Specimens Taken Check Surgery Details section.
--- OUTSIDE RECORDS SUMMARY | 2024-04-29 08:26 | XMS_ITS | Encounter Summary ---
Author Organization [facility] Address [address] [place] [address]. [place] [address] Care Team Providers Care Veterinary Surgeon Name Role Phone David Pennington Primary Care Provider Dharmesh Montes MD Unavailable [phone] Dharmesh Montes MD Unavailable [phone] Encounter Details Date Type Department Care Team (Late st Contact Info) Description 12/21/2023 [facility] Medical Advice [facility] [address] 4[address] [place] [address] Dharmesh Montes MD [address] [address] Social History Tobacco Use Types [...] on filedocumented in this encounter Care Teams Veterinary Surgeon Relationship Specialty Start Date End Date David Pennington PCP - General 01/25/11 Dharmesh Montes MD 420 [facility] [address] [place], [place] [address] Otolaryngology 05/20/21 Dharmesh Montes MD 420 [facility] [address] [place], [place] [address] Assigned Surgical Provider 07/15/22 documented as of this encounter
--- OUTSIDE RECORDS SUMMARY | 2024-04-29 08:26 | XMS_ITS | Referral Summary ---
Author Organization [facility] Address [address] [place] [address] Care Team Providers Care Clerical Associate Name Role Phone Elsewhere, Pcp Primary Care Provider Unavailabl e Source Comments Patient records contain information from all sites at [facility]. For routine questions regarding patient records, call [phone] during business hours, M-F 8:00 AM - 5:00 PM Central Time. Record requests for emergency care only can be directed to [phone] at any time.[facility] Encounters Date Type Department Care Team Description 03/10/2024 7:03 AM CDT - 03/10/2024 11:59 PM CDT Hospital Encounter Department of Laboratory Medicine and Pathology, [facility] in [place], [place] [address] [place] [address] Anabel Cunningham P.A.-C., M.S. Primary Malignant Neoplasm Of Prostate (HCC) Discharge Disposition: Home or Self Care from Last 3 Months Allergies No known active allergies Medications Medication Sig Dispensed Refills Start Date End Date Status cholecalciferol, vitamin D3, 25 mcg (1,000 Unit) tablet Take 1 tablet by mouth daily. 04/05/2010 Active Xarelto 20 mg tablet Take 20 mg by mouth daily with dinner. 08/28/2022 Active sildenafiL (Viagra) 100 mg tablet Take 0.5-1 tablets (50-100 mg total) by mouth as needed for erectile dysfunction. 10 tablet 3 09/25/2022 Active gabapentin (NEURONTIN) 300 mg capsule Take 300 mg by mouth at bedtime. 02/01/2023 Active levothyroxine (SYNTHROID, LEVOTHROID) 175 mcg tablet Take 175 mcg by mouth every morning before breakfast. 07/31/2022 Active Active Problems Problem Noted Date [...] often do you attend chur ch or anabaptist services? Patient declined 09/20/2022 Do you belong to any clubs o r organizations such as methodist groups, unions, fraternal or athletic groups, or [...] and heating? Not hard at all 09/20/2022 [facility] - Occupational Stress Questionnaire Answer Date [...] place to sleep or slept in a half-way (including now)? No 09/20/2022 Nutrition Answer Date [...] on file Medical Devices Implanted Type Area Marketing And Development Coordinator Device Identifier Shelf Expiration Date Model / Serial / Lot Eyelid Weight Eyelid Weight Left: Eyelid Description:Weight Mesh Or Patch Mesh or Patch Umbilical Description:Hernia Repair Ocular Lens Ocular Lens Left: Eye Care Teams Clerical Associate Relationship Specialty Start Date End Date Elsewhere, Pcp PCP - General Family Medicine 04/06/23
--- OUTSIDE RECORDS SUMMARY | 2024-04-29 08:26 | XMS_ITS | Encounter Summary ---
Author Organization [place] Address [address] [place] [address]. [place] [address] Care Team Providers Care Valve Grinder Name Role Phone David Pennington Primary Care Provider [phone] Dharmesh Montes MD Unavailable [phone] Dharmesh Montes MD Unavailable [phone] Reason for Referral * Audiology (Routine: Next available opening) - Pending Review Specialty Diagnoses / Procedures Referred By Contac t Referred To Contact Audiology Diagnoses Sensorineural hearing loss (SNHL) of left ear with unrestricted hearing of right ear Dharmesh Montes MD 420 [facility] [address] [place] [address] Referral ID Status Reason Start Date Expiration Date Visits Requested Visits Authorized [id number] Pending Review Assess and Evaluate 03/04/2024 03/04/2025 1 1 Question Answer Reason for Referral: Hearing and Ear Services: Hearing Aid Hearing Aid Service: Consult (Hearing Test within 6 Months before Consult) Scheduling Instructions: [facility] will call you to coordinate your care as prescribed by the provider. If you don? t hear from a quality assurance representative within 2 business days, please call . Comments [facility] will call you to coordinate your care as prescribed by the provider. If you don? t hear from a quality assurance representative within 2 business days, please call . Encounter Details Date Type Department Care Team (Late st Contact Info) Description 03/04/2024 3:20 PM CDT Office Visit [facility] [address] 4[address] [place] [address] Dharmesh Montes MD 420 [facility] [address] [place] [address] Bronchitis (Primary Dx); Sensorineural hearing loss (SNHL) [...] on file documented as of this encounter Last Filed Vital Signs Vital Sign Reading Time Taken Comments Blood Pressure - - Pulse - - Temperature - - Respiratory Rate - - Oxygen Saturation - - Inhaled Oxygen Concentration - - Weight - - Height 182.9 cm (6') 03/04/2024 3:25 PM CDT Body Mass Index - - documented in this encounter Patient Instructions * Patient Instructions* Ashli Abad LPN - 03/04/2024 3:20 PM CDT Images from the original note were not included. You were seen in the ENT Clinic today by Dr. Montes. If you have any questions or concerns after your appointment, please contact us (see below) 2. The following recommendations have been made based upon your appointment today: -4 week phone call visit How to Contact Us: Send a Maximus message to your provider. Our team will respond to you via Maximus. Occasionally, wewill need to call you to get further information. For urgent matters (Sunday-Sunday), call the ENT Clinic: [phone] and speak with a call center steam service inspector - they will route your call appropriately. If you'd like to speak directly with a nurse, please find our contact information below. We do our best to check voicemail frequently throughout the day, and will work to call you back within 1-2 days. For urgent matters, please use the general clinic phone numbers listed above. 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 On physical examination today the ear exam on both sides is normal the oral cavity oropharynx is clear he is felt that he had a mass that was palpable in the left cheek and I do not really feel this today and that may be hent of the lymph node in the left cheek but nothing severe exam shows no mass or adenopathy but is difficult exam as previous radiation we was recommended today to go ahead and potentially try hearing aids we went over his hearing test today he is got reasonable discrimination scores but they significant loss on the left side the same side that was very in the most. We will follow-up with him after hearing aid evaluation documented in this encounter Plan of Treatment Scheduled Referrals Name Type Priority Associated Diagnoses Orde r Schedule Adult Audiology [facility] Referral Referral Routine: Next available opening Sensorineural hearing loss (SNHL) of left ear with unrestricted hearing of right ear Expected: 03/04/2024 (Approximate), Expires: 03/04/2025 documented as of this encounter Visit Diagnoses Diagnosis Bronchitis- Primary Bronchitis, not specified as acute or chronic Sensorineural hearing loss (SNHL) of left ear with unrestricted hearing of right ear Adenoid cystic carcinoma (H) Other malignant neoplasm without specification of site documented in this encounter Care Teams Valve Grinder Relationship Specialty Start Date End Date David Pennington PCP - General 01/25/11 Dharmesh Montes MD [address] [id number] Otolaryngology 05/20/21 Dharmesh Montes MD [address] [address] Assigned Surgical Provider 07/15/22 documented as of this encounter
--- OUTSIDE RECORDS SUMMARY | 2024-04-29 08:26 | XMS_ITS | Encounter Summary ---
Author Organization [facility] Address [address] [place] [address]. [place] [address] Care Team Providers Care News Gathering Technician Name Role Phone David Pennington Primary Care Provider Dharmesh Montes MD Unavailable [phone] Dharmesh Montes MD Unavailable [phone] Encounter Details Date Type Department Care Team (Late st Contact Info) Description 11/26/2023 [facility] Medical Advice [facility] [address] [place] [address] Dharmesh Montes MD [address] [address] Social History Tobacco Use Types [...] on filedocumented in this encounter Care Teams News Gathering Technician Relationship Specialty Start Date End Date David Pennington PCP - General 01/25/11 Dharmesh Montes MD 420 [facility] 396 [place], [place] [address] Otolaryngology 05/20/21 Dharmesh Montes MD 420 [facility] [address] [place], [place] [address] Assigned Surgical Provider 07/15/22 documented as of this encounter
--- OUTSIDE RECORDS SUMMARY | 2024-04-29 08:26 | XMS_ITS | Clinical Summary ---
Author Organization [facility] Address [address] [place] [address] Care Team Providers Care Associate Accountant Name Role Phone Elsewhere, Pcp Primary Care Provider Unavailabl e Source Comments Patient records contain information from all sites at [facility]. For routine questions regarding patient records, call [phone] during business hours, M-F 8:00 AM - 5:00 PM Central Time. Record requests for emergency care only can be directed to [phone] at any time.[facility] Allergies No known active allergies Medications Medication [...] Encounter Department of Laboratory Medicine and Pathology, [facility], in [place], [place] [address] [place] [address] Anabel Cunningham P.A.-C., M.S. Primary Malignant Neoplasm Of Prostate (HCC) Discharge Disposition: Home or Self Care from Last 3 Months Immunizations Name Administration [...] often do you attend chur ch or jew services? Patient declined 09/20/2022 Do you belong to any clubs o r organizations such as jehovah's witness groups, unions, fraternal or athletic groups, or [...] at all 09/20/2022 [facility] - Occupational Stress Questionnaire Answer Date [...] place to sleep or slept in a long term (including now)? No 09/20/2022 Nutrition Answer Date [...] Done Comments CT Colonography 1957 Cologuard 1957 Hepatitis C Screening 1955 Depression Screening (Annual PHQ-2) 08/27/2023 Fall Risk Screen (Annual) 08/27/2023 COVID-19 Vaccine (2022- season) 2024 06/01/2023, 05/22/2022, 07/12/2021, Additional history exists Influenza Vaccine (#1) 2024 , 06/22/2022, 08/19/2021, Additional history exists Thyroid Stimulating Hormone (TSH) test for thyroid function 07/25/2024 07/25/2023, 10/03/2022, 07/25/2022, Additional history exists Fasting Glucose for Diabetes Screening 07/25/2026 07/25/2023, 07/25/2022, 08/15/2021, Additional history exists DTaP,Tdap,and Td Vaccines (3 - Td or Tdap) 03/11/2028 03/11/2018, 04/01/2008, 07/07/1997 Colonoscopy 12/09/2028 12/10/2023 Colorectal Cancer Surveillance 12/09/2028 Zoster Vaccines Completed 08/04/2019, 05/28/2019 Pneumococcal vaccine (65+ years) Completed 07/31/2022, 05/28/2020 HPV Vaccines Aged Out No longer eligi ble based on patient's age to complete this topic Medical Devices Implanted Type Area Slag Expander Device Identifier Shelf Expiration Date Model / Serial / Lot Eyelid Weight Eyelid Weight Left: Eyelid Description:Weight Mesh Or Patch Mesh or Patch Umbilical Description:Hernia Repair Ocular Lens Ocular Lens Left: Eye Care Teams Associate Accountant Relationship Specialty Start Date End Date Elsewhere, Pcp PCP - General Family Medicine 04/06/23
--- OUTSIDE RECORDS SUMMARY | 2024-04-29 08:27 | XMS_ITS | Data Portability ---
Author Organization [facility] Address [address] [facility] [address] [place] [address] Care Team Providers Care Pressure Tester Operator Name Role Phone HIEN ARIAS Primary Care Provider [phone] HIEN ARIAS Referring Provider [phone] Assessment No assessment recorded. Plan of Treatment Reminders Order Date Submit Date Provider Last Modified By Organization Details Last Modified Time Details Appointments None recorded. Lab biopsy, prostate 2021 [facility], [address], [place], [address], 15:43:39 Referral None recorded. Procedures None recorded. Surgeries None recorded. Imaging MRI, prostate, w/wo contrast - please schedule this appt 2021 [facility], [address], [address], [place], [address], 13:45:28 Medication Orders levofloxaci n 500 mg tablet [address], [address], 03:38:17 ceftriaxone 1 gram solution for injection [email or web address], [address], 04/04/202 2 10:58:08 lidocaine HCl 10 mg/mL (1 %) injection solution 2021 [email or web address], [address], 10:58:08 Patient TargetsNo targets recorded. Patient InstructionsNo instructions recorded. Reason for Referral None Reported. Results Created Date Observation Date Name Description Value Unit Range Abnormal Flag Note LastModifiedBy Organization Detail LastModifiedTime 09/26/19 22 09/26/2021 PSA, total , serum or plasm a PSA 9.41 high Not Available Not Availa ble 09/26/2021 13:30:33 10/12/19 22 10/11/2021 MRI, prost ate, w/wo contr ast No observ ation record ed. [email or web address] [facility] [address] [facility] [address], [place], [address], 10/20/2021 09:10:56 Result Notes None recorded. Problems Name Problem SNOMED Code Status Onset Date Resolution Date Notes Provider Name and Address Organization Details Recorded Time Prostate specific antigen above reference range 593737472 Active 2017 R97.20 : Raised prostate specific antigen Not Available [facility] 0 00:26:15 Problem Notes None recorded. Procedures Surgical History Date Name Laterality Status Provider Name and Address Organization Details Recorded Time 11/29/19 22 Prostate Biopsy Procedure completed Prince Escobar MD [address] [place] [address],[address], [place], [address], [facility] 11/28/2021 12:16:16 11/29/19 22 Rocephin/Ceftri axone completed Narda henderson [facility] 11/28/2021 10:59:17 10/03/19 22 Bladder Scan completed Tomer ehnderson [facility] 10/03/2021 10:43:43 09/01/19 21 Diagnostic [...] prostate, w/wo contrast completed [email or web address] [facility] [address] [facility] [address], [place], [address], 10/20/2021 09:10:56 Procedure Notes None recorded. Medical [...] Address Organization Details Last Updated DateTime 10/03/2021 452741.6359 81723 g 182.88 cm 43.4 kg/m2 Not Available Health Note 10/03/2021 10:38:33 Date Recorded Body height Heart rate Systolic blood pressure Diastolic blood pressure Provider Name and Address Organization Details Last Updated DateTime 11/28/2021 182.88 cm 89 /min 135 mm[Hg] 83 mm[Hg] Narda Galloway [place] [facility] 11/28/2021 11:02:09 Date Recorded Body height Provider Name an d Address Organization Details Last Updated DateTime 11/28/2021 182.88 cm Tomer Tsai [place] [facility] 11:23:26 Social History Question Answer Notes LastModified [...] problems or disability Medical History Condition Response Diabetes N Sexually Transmitted Infection N Bleeding Disorder N High Blood Pressure [...] Encounter Start Date Encounter Closed Date Diagnosis/Indication Diagnosis SNOMED-CT Code Diagnosis ICD10 Code [id number] MD Wendy Delgado dbury [address] [facility] [place] [address] 10/03/2021 10:38:25 10/03/2021 11:32:00 Prostate specific antigen above reference range 552432595 R97.20 [id number] Narda Galloway Wendy dbury [address] [facility] [place] [address] 11/28/2021 10:52:45 11/28/2021 11:04:26 Prostate specific antigen above reference range 279633815 R97.20 [id number] MD Wendy Delgado dbury [address] [facility] [place] [address] 11/28/2021 10:53:47 11/28/2021 12:27:12 Prostate specific antigen above reference range 858312514 R97.20 Health Concerns Section Related Observation LastModified by Organization Detai ls LastModified Time None Recorded Concern Status LastModified by Organization Details LastModified Time None Recorded Advance Directives Directive None Recorded Payers Encounter Date Sequence Insurance Name Policy Number Policy Sanchez Covered Member ID Sanchez Member ID Guarantor Name 10/03/2021 1 [employer] [id number] Arnel E Mode [id number] Arnel E Mode 11/28/2021 1 U[employer] [id number] Arnel E Mode [id number] Arnel E Mode 11/28/2021 1 UMR [id number] Arnel E Mode [id number] Arnel E Mode Notes Date Note Type Note Provider Name and Address Organization Details Recorded Time 10/03/2021 text/html HPI Notes: Curry chatman presents today for consultation PSA rising to 9 range -- steadily increasing from 2 - 4- 6 over the last few years. Chief complaint: Elevated Prostate Level (PSA) Elevated PSA: Diagnosed: 9 Weeks ago Prince Escobar MD [address] [facility], [place], [address], [facility] 10/03/2021 11:24:49 11/28/2021 text/html HPI Notes: curry chatman here for trus biopsy mri reviewed - no significant lesions Prince Escobar MD [address] [facility],[address], [place], [address], [facility] 11/28/2021 12:16:39
== END 2024-04-29 08:23 | disposition home or self-care (01) ==
LOC: INJ CL 08:24
PROVIDERS: PCP Family Medicine; Visit Provider Family Medicine
DX: M54.16 Radiculopathy, lumbar region (principal); M51.36 Other intervertebral disc degeneration, lumbar region
CPT/HCPCS: 62323; J0702; Q9966

== ENCOUNTER 2024-07-15 14:22 | Outpatient (CLI) | payer MEDICARE, BC, SELFPAY ==
--- OUTSIDE RECORDS SUMMARY | 2024-07-15 14:27 | XMS_ITS | Clinical Summary ---
Author Organization [facility] Address [address] [place] [address] Care Team Providers Care Food Service Associate Name Role Phone Elsewhere, Pcp Primary Care Provider Unavailabl e Source Comments Patient records contain information from all sites at [facility]. For routine questions regarding patient records, call [phone] during business hours, M-F 8:00 AM - 5:00 PM Central Time. Record requests for emergency care only can be directed to [phone] at any time.[facility] Allergies No known active allergies Medications * This document contains information received from the source organization and may not represent a complete record from that organization. cholecalciferol , vitamin D3, 25 mcg (1,000 Unit) tablet [...] Immunizations Name Administration Dates Next Due Influenza TIV (IM) 06/27/2011,06/24/2010, 009 Influenza, Injectable, Mdck, Preservative Free, Quadrivalent 08/19/2021 Influenza, Quadrivalent, Adj uvanted, Preservative Free 06/22/2022 Influenza, Seasonal, Injectable 06/27/2011 Influenza, Unspecified 05/28/2021 PCV20 07/31/2022 Pneumococcal, Unspecified 05/28/2020 RZV (SHINGRIX) 08/04/2019,05/28/2019 Td, (Adult) Unspecified 07/07/1997 Tdap 03/11/2018,04/01/2008 influenza trivalent vaccine (6 months and older)(PF) 08/02/2009 influenza vaccine quad (FLUZONE/FLUARIX) (6 months and [...] How often do you attend chur or sabianist services? Patient declined 09/20/2022 Do you belong to any clubs o r organizations such as pentecostal groups, unions, fraternal or athletic groups, or [...] and heating? Not hard at all 09/20/2022 [facility] - Occupational Stress [...] place to sleep or slept in a fci (including now)? No 09/20/2022 Nutrition Answer Date [...] Assigned at Male 03/12/2022 6:57 PM CDT Legal Sex Male 3:46 PM CDT Gender Identity Male 03/12/2022 6:57 PM CDT Sexual Orientation Straight 03/12/2022 6: 57 PM CDT Last Filed Vital Signs Vital Sign Reading Time Taken Comments Blood Pressure 117/73 04/24/2023 2:41 PM CDT Pulse 75 04/24/2023 2:41 PM CDT Temperature 36.7 C (98 F) 04/24/2023 2:41 PM CDT Respiratory Rate - [...] Fall Risk Screen (Annual) 08/27/2023 COVID-19 Vaccine ( season) 2024 06/01/2023, 05/22/2022, 07/12/2021, Additional [...] patient's age to complete this topic IPV Vaccines Aged Out No longer eligi ble based on patient's age to complete this topic Medical Devices Implanted Type Area Teletypesetter Monitor Device Identifier Shelf Expiration Date Model / Serial / Lot Eyelid Weight Eyelid Weight Left: Eyelid Description:Weight Mesh Or Patch Mesh or Patch Umbilical Description:Hernia Repair Ocular Lens Ocular Lens Left: Eye Insurance MEDICARE [facility] Care Teams Food Service Associate Relationship Specialty Start Date End Date Elsewhere, Pcp PCP - General Family Medicine 04/06/23
--- OUTSIDE RECORDS SUMMARY | 2024-07-15 14:27 | XMS_ITS ---
Author Organization [facility] Address [address] [place] [address] Care Team Providers Care Platinum Smith Name Role Phone Unavailable Unavailable Unavailable Surgery Details Not on file Complications Check Surgery Details section. Procedure Estimated Blood Loss Check Surgery Details section. Procedure Findings Check Surgery Details section. Procedure Specimens Taken Check Surgery Details section.
--- OUTSIDE RECORDS SUMMARY | 2024-07-15 14:27 | XMS_ITS ---
Author Organization [facility] Address [address] [place] [address] Care Team Providers Care Prekindergarten Teacher Name Role Phone Elsewhere, Pcp Primary Care Provider Unavailabl e Active Problems * This document contains information received from the source organization and may not represent a complete record from that organization. Problem Noted Date Diagnosed Date Embolus Pulmonary [...] Treated Prescribed Fraction Dose Prescribed Total Dose [id number] 03/27/2022 27 20 of 20 300 cGy 6,000 cGy Reference Point Last Treated On Elapsed Days Session Dose Total Dose [id number] 03/27/2022 27 300 cGy 6,000 cGy
--- OUTSIDE RECORDS SUMMARY | 2024-07-15 14:27 | XMS_ITS | Referral Summary ---
Author Organization [facility] Address [address] [place] [address] Care Team Providers Care Grinding Machine Operator Name Role Phone Elsewhere, Pcp Primary Care Provider Unavailabl e Source Comments Patient records contain information from all sites at [facility]. For routine questions regarding patient records, call [phone] during business hours, M-F 8:00 AM - 5:00 PM Central Time. Record requests for emergency care only can be directed to [phone] at any time.[facility] Allergies No known active allergies Medications * [...] How often do you attend chur or confucianism services? Patient declined 09/20/2022 Do you belong to any clubs o r organizations such as yarsani groups, unions, fraternal or athletic groups, or [...] and heating? Not hard at all 09/20/2022 [facility] - Occupational Stress [...] on file Medical Devices Implanted Type Area Board Handler Device Identifier Shelf Expiration Date Model / Serial / Lot Eyelid Weight Eyelid Weight Left: Eyelid Description:Weight Mesh Or Patch Mesh or Patch Umbilical Description:Hernia Repair Ocular Lens Ocular Lens Left: Eye Insurance MEDICARE [facility] [place] [address] Care Teams Grinding Machine Operator Relationship Specialty Start Date End Date Elsewhere, Pcp PCP - General Family Medicine 04/06/23
--- OUTSIDE RECORDS SUMMARY | 2024-07-15 14:28 | XMS_ITS | Clinical Summary ---
Author Organization [facility] Address [place], [place] [address] Care Team Providers Care Interlocker Maintainer Name Role Phone David Pennington MD Primary Care Provider Allergies No known active allergies Medications Medication Sig Dispensed Refills Start Date End Date Status cholecalciferol (VITAMIN D) 1,000 unit tablet Take 1 tablet by mouth once daily. 0 04/05/2010 Active BiPapIndications:OS A (obstructive sleep apnea) BIPAP machine for home [...] albuterol HFA (PRO-AIR; VENTOLIN; PROVENTIL) 90 mcg/actuation inhalerIndications: Chronic cough Inhale 1-2 Puffs by mouth every 4 hours if needed for Shortness Of Breath. 1 Each 2 05/17/2023 Active fluticasone furoate-vilanteroL (Breo Ellipta) 100-25 mcg/dose inhalerIndications: Mild persistent asthma with exacerbation Inhale 1 Puff by mouth once daily. 60 Each 06/04/2023 Active levothyroxine (SYNTHROID) 175 mcg tabletIndications:A cquired hypothyroidism Take 1 Tablet (175 mcg) by mouth before breakfast. 90 Tablet 3 08/01/2023 Active Trelegy Ellipta 100-62.5-25 mcg inhaler INHALE 1 PUFF BY MOUTH AT THE SAME TIME EVERY DAY 09/21/2023 Active rivaroxaban (XARELTO) 20 mg tabletIndications:O ther pulmonary embolism without acute cor pulmonale, unspecified chronicity (HC) Take 1 Tablet (20 mg) by mouth once daily with evening meal. 90 Tablet 4 03/11/2024 Active benzonatate (Tessalon Perles) 100 mg capsuleIndications: COVID-19 virus infection Take 1 Capsule (100 mg) by mouth 3 times daily if needed for Cough. 30 Capsule 06/17/2024 Active dextromethorphan-gu aiFENesin (ROBITUSSIN DM) (10-100mg/5mL) syrupIndications:CO VID-19 virus infection Take 10 mL by mouth every 6 hours if needed for Cough. 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 10 Tablet 12/21/2023 4 Discontinue d(*Med complete/Re gimen complete/Le jaki of care change) Active Problems Problem Noted Date Diagnosed Date Encounter for colonoscopy in patient with family history of colon cancer 12/11/2023 Adenoid cystic carcinoma of parotid gland 2021 Morbid obesity 08/02/2022 Tubular adenoma 10/25/2020 Overview (10/26/2020): Repeat colonoscopy 3 years JAQUAN 08/27/2013-11 08/21/2019 [...] or lump in head and neck 007 Overview (08/29/2006): rad rx left History of parotid cancer 08/29/2006 Acute respiratory failure with hypoxia Gall stone pancreatitis Polyp of colon SOB (shortness of breath) Personal history of colonic polyps Prostate cancer Resolved Problems Problem Noted Date Diagnosed Date Resolved Date Septic shock due to undetermined organism 07/20/2016 08/21/2019 Unspecified sleep apnea 08/29/200607/28 Pulmonary emboli 12/23/2023 Encounters Date Type Department Care Team Description 07/10/2024 Travel 07/09/[address] [address] David Pennington MD Lab (LAB ORDERS) 06/26/2024 10:45 AM CDT Office Visit [facility] [address] [place] [address] Prince Escobar MD Follow Up (Prostate Cancer) 06/25/2024 Travel 06/19/2024 10:40 AM CDT Telemedicine [facility] [address] [place] [address] Ernst Day MD Musculoskeletal Problem (Follow up back pain ) 06/18/2024 Travel 06/17/2024 7:50 AM CDT Phone Office Visit [facility] [address] [place] [address] Arianna Ceja PA Covid-19 Positive Result 06/17/2024 Travel 04/29/2024 9:00 AM CDT Office Visit [facility] [address] [place] [address] Ernst Day MD Procedure (L4-5 ILESI) from Last 3 Months Immunizations Name Administration Dates Next Due COVID-19 vaccine (Softdesk 30mcg/0.3mL) STAN AVILA 12/02/2020,11/11/2020 Influenza Virus, Unspecified [...] Date Recorded PHQ-2 TOTAL SCORE 0 12/21/2023 Financial Resource Strain Answer Date R ecorded Difficulty of Paying Living Expenses Not on file 08/22/2021 Difficulty of Paying Living Expenses Not on file 08/22/2021 Sex and Gender Information Value Date Recorded Sex Assigned at Not on file Gender Identity Not on file Sexual Orientation Not on file Obstetrics History Last Filed Vital Signs Vital Sign Reading Time Taken Comments Blood Pressure 126/68 06/26/2024 10:49 AM CDT Pulse 60 06/26/2024 10:49 AM CDT Temperature 36.9 C (98.4 F) 12/10/2023 8:33 AM CDT Respiratory Rate 16 12/10/2023 11:0 0 AM CDT Oxygen Saturation 90% 12/10/2023 11: 00 AM CDT Inhaled Oxygen Concentration - - Weight 150.4 kg (331 lb 9.6 oz) 024 10:49 AM CDT Height 181.6 cm (5' 11.5) 12/21/2023 1:54 PM CD T Body Mass Index 45.6 12/21/2023 1:54 PM CDT Plan of Treatment Upcoming Encounters Date Type Department Care Team (Late st Contact Info) Description 07/15/2024 3:00 PM CLINICAL OUTCOMES MANAGER Office Visit [facility] [address] [place] [facility] [address] Ernst Day MD [address] [facility] [address] Arrived 07/29/2024 9:30 AM CLINICAL OUTCOMES MANAGER Orders Only [address] [place] [address] Lab, [facility] 08/05/2024 10:20 AM CLINICAL OUTCOMES MANAGER Office Visit [address] [place] [address] David Pennington MD [address] [place] [address] 11/27/2024 8:10 AM CDT Orders Only [address] [place] [address] Lab, [facility] 12/04/2024 10:45 AM CDT Office Visit [address] [address] Prince Escobar MD [address] [place] [address] Health Maintenance Due Date Last Done Comments [...] Additional history exists Tetanus booster 03/11/2028 03/11/2018, 08/01/2008, 07/07/1997 Lipids for age 45-75 07/25/2028 07/25/2023, 07/25/2022, 08/15/2021, Additional history exists Tdap Completed 03/11/2018, 04/01/2008 Hepatitis C screening for ag e 18-79 Completed 05/24/2019, 12/17/2014 Zoster (shingles) series for age 50+ Completed 08/04/2019, 05/28/2019 Pneumococcal series for age 65+ Completed , 05/28/2020 Procedures Procedure Name Priority Date/Time Associated Diagnosis Comments AMB EPIDURAL STEROID INJECTION Routine 07/15/2024 8:07 AM CLINICAL OUTCOMES MANAGER Lumbar radiculopathy Degeneration of intervertebral disc of lumbar region with discogenic back pain and lower extremity pain Chronic right hip pain AMB EPIDURAL STEROID INJECTION Routine 04/29/2024 12:00 AM CDT Lumbar radiculopathy DDD (degenerative disc disease), lumbar Chronic right hip pain COLONOSCOPY 12/10/2023 9:30 AM CDT LIPID PANEL W REFLEX MEASURED LDL Routine 07/25/2023 8:41 AM CLINICAL OUTCOMES MANAGER Acquired hypothyroidism ANTI HCV Routine 05/24/2019 9:30 AM CDT Well adult exam from Last 3 Months or Most Recently Relevant to Health Maintenance Results * AMB EPIDURAL STEROID INJECTION (04/29/2024 12:00 AM CDT) Ernst Day MD NEUROLOGY ORD * COLONOSCOPY (12/10/2023 9:30 AM CDT) 12/10/2023 [...] adequate candidate for conscious sedation. The endoscope [id number] was passed through the anus andadvanced to [...] W REFLEX MEASURED LDL (07/25/2023 8:41 AM CLINICAL OUTCOMES MANAGER) CHOLESTEROL,TOTAL 173 100 - 199 mg/dL 07/25/2023 6:53 PM CLINICAL OUTCOMES MANAGER [facility] Comment: Cholesterol, Total Reference Ranges Desirable <200 mg/dL Borderline 200-239 mg/dL High >=240 mg/dL TRIGLYCERIDES 72 <150 mg/dL 07/25/2023 6:53 PM CLINICAL OUTCOMES MANAGER [facility] HDL CHOLESTEROL 52 >40 mg/dL 6:53 PM CLINICAL OUTCOMES MANAGER [facility] NON-HDL CHOLESTEROL 121 <145 mg/dl 07/25/2023 6:53 PM CLINICAL OUTCOMES MANAGER [facility] CHOL/HDL RATIO 3.33 <4.50 07/25/2023 6:53 PM CLINICAL OUTCOMES MANAGER [facility] LDL CHOLESTEROL 107 <=130 mg/dL 07/25/2023 6:53 PM CLINICAL OUTCOMES MANAGER [facility] VLDL CHOLESTEROL 14 <=30 mg/dL 07/25/2023 6:53 PM CLINICAL OUTCOMES MANAGER [facility] PROVIDER ORDERED STATUS RANDOM 07/25/2023 6:53 PM CLINICAL OUTCOMES MANAGER [facility] Blood BLOOD SPECIMEN / Unknown Venipuncture / Unknown 07/25/2023 8:41 AM CLINICAL OUTCOMES MANAGER 07/25/2023 8:45 AM CLINICAL OUTCOMES MANAGER David Pennington MD CHEMISTRY [facility] [address] [place] [address], * ANTI HCV (05/24/2019 9:30 AM CDT) HEPATITIS C ANTIBODY Non-React mirtha Non-React mirtha 05/24/2019 1:30 PM CDT [facility] Comment:Antibodies to HCV no t detected; does not exclude the possibility of exposure to HCV. Blood BLOOD SPECIMEN / Unknown Butterfly / Unknown 05/24/2019 9:30 AM CDT 05/24/2019 9:30 AM CDT David Pennington MD [facility] [address] [place] [address], from Last 3 Months or Most Recently [...] 7:55 PM 07/24/2016 7:00 PM Care Teams Interlocker Maintainer Relationship Specialty Start Date End Date David Pennington MD [address] [place], [place] [address] [address] PCP - General Family Practice 12/10/18
--- OUTSIDE RECORDS SUMMARY | 2024-07-15 14:28 | XMS_ITS | Clinical Summary ---
Author Organization [facility] Address [address] [place] [address] Care Team Providers Care Air Intelligence Specialist Name Role Phone David Pennington Primary Care Provider [phone] Dharmesh Montes MD Unavailable [phone] Dharmesh Montes MD Unavailable [phone] Allergies Active Allergy Reactions Criticality Noted Date Comments No Known Drug Allergy 04/11/2011 Medications * This document contains information received from the source organization and may not represent a complete record from that organization. VITAMIN D PO Take by mouth. Ac tive levothyroxine (SYNTHROID/LEVOTH ROID) 150 MCG tablet Take 175 mcg by mouth 9 Active Respiratory Therapy Supplies (CARETOUCH CPAP & BIPAP HOSE) [facility] [place] [place] BIPAP machine for home use at pressure: [...] 99 months, Frequency of use: Daily 1 Active mupirocin (BACTROBAN) 2 % external ointmentIndicatio ns:Nasal valve collapse Apply topically 2 times daily 22 g 3 1 Active Additional Information Patient not taking.Reported on 07/11/2022 ondansetron (ZOFRAN-ODT) 4 MG ODT tabIndications:Na bella valve collapse Take 1 tablet (4 mg) by mouth every 6 hours as needed for nausea or vomiting 5 tablet 1 Active Additional Information Patient not taking.Reported on 07/11/2022 sodium chloride (OCEAN) 0.65 % nasal sprayIndications: Nasal valve collapse Pilot 2 sprays into both nostrils 4 times daily 30 mL 3 1 Active oxyCODONE (ROXICODONE) 5 MG tabletIndications :Acute post-operative pain Take 1 tablet (5 mg) by mouth every 4 hours as needed for moderate to severe pain 15 tablet 1 Active Additional Information Patient not taking.Reported on 07/11/2022 acetaminophen (TYLENOL) 325 MG tabletIndications :Acute post-operative pain Take 2 tablets (650 mg) by mouth every 4 hours as needed for mild pain 100 tablet 1 Active apixaban ANTICOAGULANT (ELIQUIS) 5 MG tablet Take 5 mg by mouth 2 times daily 2 Active ipratropium (ATROVENT) 0.03 % nasal sprayIndications: VMR (vasomotor rhinitis) Pilot 2 sprays into both nostrils every 12 hours 30 mL 1 2 Active albuterol (PROAIR HFA/PROVENTIL HFA/VENTOLIN HFA) 108 (90 Base) MCG/ACT inhaler Inhale 1-2 puffs into the lungs 3 Active ADVAIR DISKUS 100-50 MCG/ACT inhaler 3 Active XARELTO ANTICOAGULANT 20 MG TABS tablet TAKE ONE TABLET BY MOUTH ONCE DAILY WITH EVENING MEAL Active Fluticasone-Umecl idin-Vilant (TRELEGY ELLIPTA) 100-62.5-25 MCG/ACT oral inhaler Inhale 1 puff into the lungs daily Active benzonatate (TESSALON) 100 MG capsuleIndication s:Bronchitis Take 1 capsule (100 mg) by mouth 3 times daily as needed for cough 100 capsule 1 4 Active Active Problems Problem Noted Date Diagnosed Date Brow ptosis, bilateral 09/06/2020 Overview (09/06/2020): Added automatically from request for surgery [id number] Visual field defect 09/06/2020 Overview (09/06/2020): Added automatically from request for surgery [id number] 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 Overview (09/06/2020): Added automatically from request for surgery [id number] Morbid obesity 07/08/2020 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 06/18/2020 Overview (06/18/2020): Added automatically from request for surgery [id number] Nasal obstruction 06/18/2020 Overview (06/18/2020): Added automatically from request for surgery [id number] Nasal deformity 06/18/2020 Overview (06/18/2020): Added automatically from request for surgery [id number] Facial paralysis 04/14/2020 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 Family History Medical History Relation Comments Glaucoma [...] Recorded Sex Assigned at Not on file Legal Sex Male 4:00 AM HOSPICE CONSULTANT Gender Identity Not on file Sexual Orientation Not on file Last Filed Vital Signs Vital Sign Reading Time Taken Comments Blood Pressure 141/81 01/08/2024 10:19 AM CDT Pulse 67 01/08/2024 10:19 AM CDT Temperature 36.9 C (98.4 F) 03/02/2021 10:40 AM CDT Respiratory Rate 16 02/23/2021 7:32 AM CDT Oxygen Saturation 94% 01/08/2024 10: 19 AM CDT Inhaled Oxygen Concentration - - Weight 151.2 kg (333 lb 6.4 oz) 05/14/2 024 10:19 AM CDT Height 182.9 cm (6') 03/04/2024 3:25 PM CDT Body Mass Index 45.22 07/11/2022 8:42 AM HOSPICE CONSULTANT Plan of Treatment Health Maintenance Due Date Last Done Comments ADVANCE CARE PLANNING 1955 ANNUAL REVIEW OF HM ORDERS [address] CT COLONOGRAPHY 1957 FIT 1957 FLEX SIG 1957 TSH W/FREE T4 REFLEX 1957 sDNA (Cologuard) 1957 HEPATITIS C SCREENING 1975 LIPID 1997 RSV VACCINE (1 - Risk 60-74 years 1-dose series) 2017 GLUCOSE 02/24/2024 02/23/2021, 01/26, 02/22/2021 COVID-19 Vaccine ( season) 2024 06/01/2023, 05/22/2022, 07/12/2021, Additional history exists INFLUENZA VACCINE (#1) 2024 , 06/22/2022, 08/19/2021, Additional history exists MEDICARE ANNUAL WELLNESS VISIT 08/01/2024 08/01/2023, 07/31/2022, 08/09/2020 FALL RISK ASSESSMENT 01/07/2025 01/08/2024 DTAP/TDAP/TD IMMUNIZATION (4 - Td or Tdap) 03/11/2028 03/11/2018, 04/01/2008, 07/07/1997, Additional history exists COLONOSCOPY 12/09/2033 12/10/2023, 03/0 08/2020, 09/01/2020, Additional history exists COLORECTAL CANCER SCREENING [...] this topic Medical Devices Implanted Type Area Director Of Food And Nutrition Device Identifier Shelf Expiration Date Model / Serial / Lot Eye Imp Lid [place] Weight 1.4 Gram Thin Profile Implanted:Qty: 1 on 05/04/2016 by Michael Brooks MD at [facility] Left: Eyelid [employer] 07/26/2016 [id number] / / [id number] Costal Cartilage Implanted:Qty: 1 on 02/22/2021 by Libertad Russ MD at [facility] Bilateral: Nose MUSCULOSKELETAL TRANSPLANT FOUNDAT. 02/05/2024 [id number] / [id number] / [id number] Procedures Procedure Name Priority Date/Time Associated Diagnosis Comments GLUCOSE BY METER Routine 02/23/2021 6:10 AM CDT Nasal valve collapse COLONOSCOPY - HIM SCAN Routine 08/12/2012 from Last 3 Months or Most Recently Relevant to Health Maintenance Results * Glucose by meter (02/23/2021 6:10 AM CDT) Glucose 98 70 - 99 mg/dL 02/23/2021 6:17 AM CDT POINT OF CARE TEST, GLUCOSE 02/23/2021 6:10 AM CDT 02/23/2021 6:17 AM CDT Libertad Russ MD [facility] POCT Final Res ult POINT OF CARE TEST, GLUCOSE * Colonoscopy - HIM Scan (08/12/2012) 08/12/2012 Narrative Sonya Mixon CMA - 08/12/2012 [facility] us Provider Outside PROCEDURES Final Result from Last 3 Months or Most Recently Relevant to Health Maintenance Insurance [place] [address] [place] [address] [facility] [place] Advance Directives For more information, please contact: [phone] * Full Code (Latest Code Status on File) Date Activated Date Inactivated Comments 02/22/2021 5:30 PM 02/23/2021 11:53 AM All basic a nd advanced life-sustaining interventions are performed as appropriate Question Answer Comments Code status determined by: Discussion with patie nt/ legal decision maker Care Teams Air Intelligence Specialist Relationship Specialty Start Date End Date David Pennington PCP - General 01/25/11 Dharmesh Montes MD [address] [facility] [address] [place], [place] [id number] Otolaryngology 05/20/21 Dharmesh Montes MD [address] [facility] [address] [place], [place] [id number] Assigned Surgical Provider 07/15/22
--- OUTSIDE RECORDS SUMMARY | 2024-07-15 14:28 | XMS_ITS | Encounter Summary ---
Author Organization [facility] Address [address] [place] [address] Care Team Providers Care Tobacco Feeder Catcher Name Role Phone David Pennington Primary Care Provider [phone] Libertad Russ MD Unavailable Dharmesh Montes MD Unavailable Dharmesh Montes MD Unavailable [phone] Reason for Visit * Reason Onset Date Comments Previsit 02/08/2021 Encounter Details Date Type Department Care Team (Late st Contact Info) Description 02/08/[address] 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 Gender Identity Not on file Sexual Orientation Not on file documented as of this encounter Plan of Treatment Not on file documented as of this encounter Visit Diagnoses Not on filedocumented in this encounter Care Teams Tobacco Feeder Catcher Relationship Specialty Start Date End Date David Pennington PCP - General 01/25/11 Libertad Russ MD [address] [id number] Assigned Surgical Provider 06/18/20 Dharmesh Montes MD [address] [place] [address] Otolaryngology 05/20/21 Dharmesh Montes MD [address] [place] [address] Assigned Surgical Provider 07/15/22 documented as of this encounter
--- OUTSIDE RECORDS SUMMARY | 2024-07-15 14:28 | XMS_ITS | Referral Summary ---
Author Organization [facility] Address [address] [place] [address] Care Team Providers Care Warehouse Sorter Name Role Phone David Pennington Primary Care Provider [phone] Dharmesh Montes MD Unavailable [phone] Dharmesh Montes MD Unavailable [phone] Allergies Active Allergy Reactions Criticality Noted Date Comments No Known Drug Allergy 04/11/2011 Medications * This document contains information received from the source organization and may not represent a complete record from that organization. VITAMIN D PO Take by mouth. Ac tive levothyroxine (SYNTHROID/LEVOTH ROID) 150 MCG tablet Take 175 mcg by mouth 9 Active Respiratory Therapy Supplies (CARETOUCH CPAP & BIPAP HOSE) [facility] [place] BIPAP machine for home use at pressure: [...] 0.65 % nasal sprayIndications: Nasal valve collapse [place] 2 sprays into both nostrils 4 times [...] 0.03 % nasal sprayIndications: VMR (vasomotor rhinitis) [place] 2 sprays into both nostrils every 12 [...] (09/06/2020): Added automatically from request for surgery [id number] Visual field defect 09/06/2020 Overview (09/06/2020): Added automatically from request for surgery [id number] 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 Overview (09/06/2020): Added automatically from request for surgery [id number] Morbid obesity 07/08/2020 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 06/18/2020 Overview (06/18/2020): Added automatically from request for surgery [id number] Nasal obstruction 06/18/2020 Overview (06/18/2020): Added automatically from request for surgery [id number] Nasal deformity 06/18/2020 Overview (06/18/2020): Added automatically from request for surgery [id number] Facial paralysis 04/14/2020 Adenoid cystic carcinoma of [...] on file Legal Sex Male 4:00 AM IT DESKTOP SUPPORT TECHNICIAN Gender Identity Not on file Sexual Orientation [...] Body Mass Index 45.22 07/11/2022 8:42 AM IT DESKTOP SUPPORT TECHNICIAN Plan of Treatment Not on file Medical Devices Implanted Type Area Middleware Developer Device Identifier Shelf Expiration Date Model / Serial / Lot Eye Imp Lid [place] Weight 1.4 Gram Thin Profile Implanted:Qty: 1 on 05/04/2016 by Michael Brooks MD at [facility] Left: Eyelid [employer] 07/26/2016 [id number] / / [id number] Costal Cartilage Implanted:Qty: 1 on 02/22/2021 by Libertad Russ MD at [facility] Bilateral: Nose MUSCULOSKELETAL TRANSPLANT FOUNDAT. 02/05/2024 [id number] / [id number] / [id number] Procedures Procedure Name Priority Date/Time Associated Diagnosis [...] 02/23/2021 6:17 AM CDT Libertad Russ MD [facility] POCT Final Res ult POINT OF CARE TEST, GLUCOSE * Colonoscopy - HIM Scan (08/12/2012) 08/12/2012 Narrative Sonya Mixon CMA - 08/12/2012 [facility]where us Provider Outside PROCEDURES Final Result from Last 3 Months or Most Recently Relevant to Health Maintenance Insurance [place] [address] BCBS CIRCLE BLUE BC[employer] BLUE Advance Directives For more information, please contact: [phone] * Full Code (Latest Code Status on File) Date Activated Date Inactivated Comments 02/22/2021 5:30 PM 02/23/2021 11:53 AM All basic a nd advanced life-sustaining interventions are performed as appropriate Question Answer Comments Code status determined by: Discussion with treye nt/ legal decision maker Care Teams Warehouse Sorter Relationship Specialty Start Date End Date David Pennington PCP - General 01/25/11 Dharmesh Montes MD [address] [place] [address] Otolaryngology 05/20/21 Dharmesh Montes MD [address] [place] [address] Assigned Surgical Provider 07/15/22
--- OUTSIDE RECORDS SUMMARY | 2024-07-15 14:28 | XMS_ITS | Encounter Summary ---
Author Organization [facility] Address [address] [place] [address]. [place] [address] Care Team Providers Care Mixing Machine Tender Name Role Phone David Pennington Primary Care Provider [phone] Dharmesh Montes MD Unavailable Dharmesh Montes MD Unavailable [phone] Encounter Details Date Type Department Care Team (Late st Contact Info) Description 11/26/2023 [facility] Medical Advice [facility] [address] [place] [address] Dharmesh Montes MD [address] [facility] [address] [place] [address] Social History Tobacco Use Types Packs/Day [...] on file Legal Sex Male 4: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
--- OUTSIDE RECORDS SUMMARY | 2024-07-15 14:28 | XMS_ITS | Encounter Summary ---
Author Organization [facility] Address [address] [place] [address]. 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
== END 2024-07-15 14:23 | disposition home or self-care (01) ==
LOC: INJ CL 14:24
PROVIDERS: PCP Family Medicine; Visit Provider Family Medicine
DX: M54.16 Radiculopathy, lumbar region (principal); M51.362 Other intervertebral disc degeneration, lumbar region with discogenic back pain and lower extremity pain
CPT/HCPCS: 62323; J0702; Q9966

== ENCOUNTER 2024-07-29 12:30 | Outpatient (RCR) | payer MEDICARE, BC, SELFPAY | END 2024-10-30 14:12 | disposition home or self-care (01) | PROVIDERS: PCP Family Medicine; Visit Provider Family Medicine | DX: M54.16 Radiculopathy, lumbar region (principal); M51.362 Other intervertebral disc degeneration, lumbar region with discogenic back pain and lower extremity pain; M25.551 Pain in right hip; G89.29 Other chronic pain; Z51.89 Encounter for other specified aftercare | CPT/HCPCS: 97110; 97162 ==

== ENCOUNTER 2025-07-30 06:53 | Inpatient (IN) | payer MEDICARE, BC, SELFPAY ==
[2025-07-30] VITALS (18 sets, daily range): BP systolic 100–130; BP diastolic 55–84; PULSE 87–115; RESP 18–24; TEMP 36.7–37.1; O2SAT 80–94; BMI 41.1
--- NOTE | 2025-07-30 07:34 | CRLHL7_ITS ---
For Patients: As a result of the Century Cures Act, medical imaging exams and procedure reports are released immediately into your electronic medical record. You may view this report before your referring provider. If you have questions, please contact your health care provider. INDICATION: Cough, short of breath, hypoxia COMPARISON: 10/01/2023 TECHNIQUE: PA and lateral 2 view chest. FINDINGS: Lung volumes are good. Right middle and lower lobe consolidation. No pulmonary edema. No pleural effusion. No pneumothorax. No pneumomediastinum. Unchanged cardiomediastinal silhouette. Gaseous distention of the stomach. Mildly dilated small bowel loops in the anterior upper abdomen with a diameter of up to 4 cm. 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 No acute appearing bone findings. Density in the mid to lower back on the lateral view may be dystrophic calcification or significant dependent edema. No prior lateral for comparison. IMPRESSION: 1. Right middle and lower lobe pneumonia. No parapneumonic effusion. 2. Gaseous distention of the stomach and a small bowel loop in the upper abdomen. Correlate for symptoms. Dictated by Amy Trevino MD @ 07/30/2025 8:02:09 AM (Electronically Signed)
--- NOTE | 2025-07-30 07:42 | ED.SOB ---
HPI - SOB/Dyspnea General Time Seen by Provider: 07:42 Date Seen: 07/30/25 Chief Complaint: Cough Stated Complaint: Cough Time Seen by Provider: 07/30/25 07:41 Source: patient and family () Mode of arrival: ambulatory History of Present Illness HPI Narrative: Arnel is a 70 yo male with a past medical history of chronic hypercapnic respiratory failure, obstructive sleep apnea, hypothyroidism, obesity, asthma, history of throat cancer status post radiation who presents to the emergency department for evaluation of shortness of breath and cough. Patient presents this morning with his who notes patient had worsening cough last night. Patient typically coughs a lot as he tries to sit clear secretions from his history of throat cancer and radiation. Last night worsening cough along with increased sputum production, and some blood noted in the sputum. Also shortness of breath this morning and worsening of his chronic low back pain. Patient denies any fever, chills, chest pain, abdominal pain, nausea, vomiting, denies any lower extremity edema or calf tenderness. Patient has history of blood clots in the past and is on Eliquis. Patient wear CPAP at night, notes oxygen is typically on the lower at approximately 90%. History of pneumonias in the past. Related Data Home Medications ?Medication ?Instructions ?Recorded ?Confirmed albuterol sulfate 90 mcg/actuation 2 puff inhalation Q4-6H PRN 10/01/23 10/01/23 aerosol inhaler fluticasone 100 mcg-salmeterol 50 1 ea inhalation BID 10/01/23 10/01/23 mcg/dose blistr powdr for inhalation (Advair Diskus) levothyroxine 175 mcg tablet 175 mcg PO QAM 10/01/23 07/30/25 rivaroxaban 20 mg tablet (Xarelto) 20 mg PO QPM 10/01/23 10/01/23 umeclidinium 62.5 mcg/actuation 1 inh inhalation DAILY 10/01/23 10/01/23 blister powder for inhalation (Incruse Ellipta) guaifenesin 600 mg tablet, 600 mg PO BID 10/02/23 10/02/23 extended release 12 hr (Mucus Relief ER) apixaban 5 mg tablet (Eliquis) 5 mg PO BID 07/30/25 07/30/25 Previous Rx's ?Medication ?Instructions ?Recorded amoxicillin-potassium clavulanate 1 tab PO BID #10 tabs 10/03/23 1,000 mg-62.5 mg tablet,ext.rel 12hr (Augmentin XR) doxycycline hyclate 100 mg capsule 100 mg PO BID #10 caps 10/03/23 Allergies Allergy/AdvReac Type Severity Reaction Status Date / Time No Known Drug Allergies Allergy Verified 07/30/25 07:19 Review of Systems Narrative: Past medical history, past surgical history, medications, allergies, family history, and social history were reviewed with the patient. No additional pertinent items. A medically appropriate review of systems was performed with pertinent positives and negatives noted in HPI, all other systems negative. 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 - Personal history of malignant neoplasm of other sites of lip, oral cavity, and pharynx (ICD-10) Colon polyp ?K63.5 - Polyp of colon (ICD-10) Dermatographic urticaria ?L50.3 - Dermatographic urticaria (ICD-10) Pulmonary embolism ?I26.99 - Other pulmonary embolism without acute cor pulmonale (ICD-10) Chronic anticoagulation ?Z79.01 - longterm (current) use of anticoagulants (ICD-10) Hypothyroid ?E03.9 - Hypothyroidism, unspecified (ICD-10) Obesity ?E66.9 - Obesity, unspecified (ICD-10) Chronic hypercapnic respiratory failure ?J96.12 - Chronic respiratory failure with hypercapnia (ICD-10) Surgical History (Updated 10/02/23 @ 16:23 by Diana Cochran MD) S/P tonsillectomy and adenoidectomy ?Z90.89 - Acquired absence of other organs (ICD-10) H/O parotidectomy ?Z90.49 - Acquired absence of other specified parts of digestive tract (ICD-10) H/O umbilical hernia repair ?Z98.890 - Other specified postprocedural states (ICD-10) ?Z87.19 - Personal history of other diseases of the digestive system (ICD-10) H/O colonoscopy ?Z98.890 - Other specified postprocedural states (ICD-10) Social History What is your current living situation?: I presently have a place to live Problems where you live: no known problems Problems where you live details: n/a In the past 12 months, utilities in danger of being shut off: no In past 12 months, lack of transportation kept you from medical appts, meetings, work, or getting things needed for daily living: no In the past 12 mos, have been you worried that your food would run out before you had money to buy more?: never true In the past 12 mos, the food you bought just didn't last and you didn't have money to buy more?: never true Highest level of school completed/degree received: 12th grade, no diploma Smoking Status: Never smoker Do you use any of these nicotine containing products: None Second hand tobacco smoke exposure: No How often do you have a drink containing alcohol: monthly or less How many standard drinks containing alcohol do you have on a typical day: 1 or 2 How often do you have six or more drinks on one occasion: Never AUDIT-C Alcohol total score: 1 Non-prescribed substance use: denies use Caffeine: Yes (2c coffee daily) How often does anyone, including family, friends and others, physically hurt you: never How often does anyone, including family, friends and others, insult or talk down to you: never How often does anyone, including family, friends and others, threaten you with harm: never How often does anyone, including family, friends and others, scream or curse at you: never service: No Exam Narrative: Exam Narrative: General: Afebrile, in distress HEENT: Normocephalic, atraumatic, conjunctiva normal. MMM Neck: non-tender, supple Cardio: Tachycardic rate. regular rhythm Resp: Increased work of breathing, coarse breath sounds b/l, diminished at bases Chest/Back: no visual signs of trauma, no midline tenderness, no CVA tenderness Abdomen: soft, non distension, no tenderness, no peritoneal signs Neuro: alert and fully oriented. CN II-XII grossly intact. Grossly normal strength and sensation in all extremities. MSK: no deformities. Normal range of motion Integumentary/Skin: no rash visualized, normal color Psych: normal affect, normal behavior Const: Vital Signs, click to edit/add: Vital Signs - 24 hr 07/30/25 07:20 Temperature 98.4 F Pulse Rate [Pulse Oximeter] 115 H Respiratory Rate 24 Blood Pressure [Ri ght Upper Arm] 114/84 Pulse Oximetry 84 L Oxygen Delivery Me thod Room Air Course Vital Signs Vital signs: Initial Vital Signs Temperature 98.4 F 07/30/25 07:20 Temperature Source Temporal Artery Scan 07/30/25 07:20 Pulse Rate 115 H 07/30/25 07:20 Respiratory Rate 24 07/30/25 07:20 Blood Pressure 114/84 07/30/25 07:20 Blood Pressure Mean 94 07/30/25 07:20 Blood Pressure Position Sitting 07/30/25 07:20 Pulse Oximetry 84 L 07/30/25 07:20 Oxygen Delivery Method Room Air 07/30/25 07:20 Vital Signs Temperature 98.4 F 07/30/25 07:20 Pulse Rate 115 H 07/30/25 07:20 Respiratory Rate 24 07/30/25 07:20 Blood Pressure 114/84 07/30/25 07:20 Pulse Oximetry 84 L 07/30/25 07:20 Oxygen Delivery Method Room Air 07/30/25 07:20 Temperature 98.4 F 07/30/25 07:20 Pulse Rate 115 H 07/30/25 07:20 Respiratory Rate 24 07/30/25 07:20 Blood Pressure 114/84 07/30/25 07:20 Pulse Oximetry 84 L 07/30/25 07:20 Oxygen Delivery Method Room Air 07/30/25 07:20 Medications Administered Medications: Discontinued Medications Generic Name Dose Route Start Last Admin Trade Name Freq PRN Reason Stop Dose Admin Ceftriaxone Sodium 1 gm/ 100 mls @ 200 mls/hr 07/30/25 08:04 07/30/25 08:22 Sodium Chloride IVPB 07/30/25 08:05 200 mls/hr ONCE ONE Administration MDM - SOB/Dyspnea MDM Narrative Medical decision making narrative: Arnel is a 70 yo male with a past medical history of chronic hypercapnic respiratory failure, obstructive sleep apnea, hypothyroidism, obesity, asthma, history of throat cancer status post radiation who presents to the emergency department for evaluation of shortness of breath and cough. Upon arrival patient is nontoxic appearing, afebrile, in distress. Upon arrival patient initially hypoxic with oxygen saturations 80% on room air with improvement to 88% on 3 L nasal cannula. Patient tachycardic with a heart rate of 115, blood pressure 114/84. Upon arrival patient placed on cardiac monitoring, EKG, comprehensive labs, chest x-ray performed. Differential diagnosis includes but is not limited to sepsis versus pneumonia versus bronchitis versus PE versus pleural effusion versus pneumothorax versus congestive heart failure versus viral illness among others. Comprehensive labs with no leukocytosis white blood cell count 10.7, hemoglobin 16.3, no acute electrolyte abnormality, creatinine 0.8, lactic acid slightly elevated at 2. Venous blood gas with a pH of 7.417, pCO2 46, PO2 58. I personally reviewed interpreted chest x-ray which demonstrates right middle and lower lobe pneumonia. No evidence of pulmonary edema, pleural effusion, pneumothorax. Gaseous distension of the stomach and small bowel loops in the upper abdomen. Patient denies any abdominal pain, no nausea, no vomiting. Patient was treated with IV ceftriaxone, azithromycin, 1 L IV fluid bolus. I discussed patient management with hospitalist Dr. Goins who agrees with admission for ongoing management, IV antibiotics, IV fluids, oxygen requirements for acute hypoxic respiratory failure, right-sided pneumonia. Patient and family understand agrees the plan. Medical Records Attestation: I reviewed the patient's medical records. Lab Data Attestation: I reviewed the patient's lab results. Labs: Lab Results 07/30/25 Range/Units 08:00 WBC 10.75 (4.50-11.00) K/uL RBC 5.60 (4.30-5.90) m/uL Hgb 16.3 (13.5-17.5) gm/dL Hct 51.4 (37.0-53.0) % MCV 92 (80-100) fL MCH 29 (26-34) pg MCHC 32 (32-36) gm/dL RDW Coeff of Irma 13.8 (11.5-15.5) % Plt Count 194 (140-440) K/uL Neut % (Auto) 91.5 H (42.0-72.0) % Lymph % (Auto) 6.1 L (20-44) % [place] % (Auto) 1.8 (0.0-11.0) % Eos % (Auto) 0.2 (0.0-7.0) % Baso % (Auto) 0.2 (0.0-3.0) % Neut # (Auto) 9.80 H (1.7-7.0) K/uL Lymph # (Auto) 0.70 L (0.90-2.90) K/uL [place] # (Auto) 0.20 (0.00-0.90) K/UL Eos # (Auto) 0.02 (0.00-0.50) K/uL Baso # (Auto) 0.02 (0.00-0.30) K/uL Abs Immat Gran (auto) 0.02 (0.00-0.30) K/uL Imm/Tot Granulo (auto) 0.2 % VBG pH 7.417 (7.32-7.43) VBG pCO2 46 (40-50) mmHG VBG pO2 58.2 H (25-47) mmHG VBG HCO3 30 H (21-28) mmol/L Sodium 136 (135-149) mmol/L Potassium 3.7 (3.6-5.1) mmol/L Chloride 100 (96-114) mmol/L BUN 18 (7-30) mg/dL Creatinine 0.8 (0.5-1.5) mg/dL Estimated GFR 96 ml/min Lactate 2.0 H (0.5-1.9) mmol/L POC Troponin I High Sensi 10.2 (2.9-28.0) pg/mL Albumin 4.2 (3.3-5.0) g/dL Imaging Data Chest x-ray: Attestation: I have reviewed the pertinent imaging results. Radiologist's impression: Patient: Arnel Ng MR#: [id number] : 1955 Acct:[id number] Loc: ED Service Date: 07/30/[address]: Ordering Physician: Cira Arteaga M.D. Date of Service: 07/30/25 Procedure(s): XR chest 2V Accession Number(s): [id number] cc: Cira Arteaga M.D.; David Pennington M.D.~ For Patients: As a result of the Century Cures Act, medical imaging exams and procedure reports are released immediately into your electronic medical record. You may view this report before your referring provider. If you have questions, please contact your health care provider. INDICATION: Cough, short of breath, hypoxia COMPARISON: 10/01/2023 TECHNIQUE: PA and lateral 2 view chest. FINDINGS: Lung volumes are good. Right middle and lower lobe consolidation. No pulmonary edema. No pleural effusion. No pneumothorax. No pneumomediastinum. Unchanged cardiomediastinal silhouette. Gaseous distention of the stomach. Mildly dilated small bowel loops in the anterior upper abdomen with a diameter of up to 4 cm. 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 No acute appearing bone findings. Density in the mid to lower back on the lateral view may be dystrophic calcification or significant dependent edema. No prior lateral for comparison. IMPRESSION: 1. Right middle and lower lobe pneumonia. No parapneumonic effusion. 2. Gaseous distention of the stomach and a small bowel loop in the upper abdomen. Correlate for symptoms. Dictated by Amy Trevino MD @ 07/30/2025 8:02:09 AM (Electronically Signed) Critical Care Time Critical Care Time Critical Care Time: Yes Attestation: The patient required my highest level preparedness to intervene emergently and I personally spent this critical care time directly and personally managing the patient. This critical care time included: Obtaining a history; Examining the patient; Pulse oximetry; Ordering and reviewing of studies; Arranging urgent treatment with development of a management plan; Evaluation of patients response to treatment; Frequent reassessment discussions with other providers. This critical care time was performed to assess and manage the high probability of imminent life-threatening deterioration that could result in multiorgan failure. It was exclusive of separate billable procedures and treating other patients and teaching time. Total Critical Care Time in Minutes: 60 Discharge Plan Discharge Clinical Impression: Acute hypoxemic respiratory failure Patient Disposition: Admitted As Inpatient Condition: Stable Procedures ABG Interpretation ABG Results: 07/30/25 08:00 VBG pH 7.417 VBG pCO2 46 VBG pO2 58.2 H VBG HCO3 30 H
[2025-07-30 08:13] LABS: HCO3 VBG 30 mmol/L (21-28); Lactate Sepsis w/Reflex* 2.0 mmol/L (0.5-1.9); PCO2 VBG 46 mmHG (40-50); PO2 VBG 58.2 mmHG (25-47); pH VBG 7.417 (7.32-7.43)
[2025-07-30 08:14] LABS: Hematocrit* 51.4 % (37.0-53.0); Hemoglobin* 16.3 gm/dL (13.5-17.5); Immature Granulocytes Abs Auto 0.02 K/uL (0.00-0.30); Immature Granulocytes Pct Auto 0.2 %; Mean Corpuscular HGB Conc 32 gm/dL (32-36); Mean Corpuscular Hemoglobin 29 pg (26-34); Mean Corpuscular Volume 92 fL (80-100); RDW Coefficient of Variation % 13.8 % (11.5-15.5); Red Blood Count* 5.60 m/uL (4.30-5.90); White Blood Count* 10.75 K/uL (4.50-11.00)
[2025-07-30 08:17] LABS: Lymphocytes Absolute Auto 0.70 K/uL (0.90-2.90); Slide Review Reflex No
[2025-07-30] MEDS: cefTRIAXone 1 GM in 0.9 % SODIUM CHLORIDE Mini-bag 100 ML IVPB (08:22)
[2025-07-30 08:34] LABS: Albumin* 4.2 g/dL (3.3-5.0); Chloride* 100 mmol/L (96-114)
[2025-07-30 08:35] LABS: Potassium* 3.7 mmol/L (3.6-5.1); Sodium* 136 mmol/L (135-149)
[2025-07-30 08:37] LABS: Alanine Aminotransferase* 23 U/L (4-50); Anion Gap 7 mEq/L (7-15); Aspartate Amino Transferase* 31 U/L (12-35); Blood Urea Nitrogen* 18 mg/dL (7-30); Carbon Dioxide* 29 mmol/L (20-32); Creatinine* 0.8 mg/dL (0.5-1.5); Estimated Glomerular Filt Rate 96 ml/min
[2025-07-30 08:38] LABS: Alkaline Phosphatase* 69 U/L (40-150); Bilirubin Total* 1.2 mg/dL (0.1-1.5); Calcium* 8.8 mg/dL (8.4-10.6); Glucose* 163 mg/dL (60-115); Total Protein* 7.2 g/dL (6.0-8.3)
[2025-07-30 08:50] LABS: NT Pro B Type NatriureticPept* < 20 pg/mL (See Note)
[2025-07-30] MEDS: DOXYCYCLINE HYCLATE 100 MG in 0.9 % SODIUM CHLORIDE Mini-bag 100 ML IVPB (08:57)
[2025-07-30] MEDS: MORPHINE 4 MG/ML INJ IVP (08:58)
[2025-07-30 09:01] LABS: PCR FLU A Negative PCR FLU A (Negative); PCR FLU B Negative PCR FLU B (Negative); PCR RSV Negative PCR RSV (Negative); SARS PCR* Negative SARS-CoV-2 (Negative)
[2025-07-30 09:24] LABS: Procalcitonin* 0.12 ng/mL (<0.50)
[2025-07-30 10:00] LABS: Lactate Sepsis 2 Hour 1.0 mmol/L (0.5-1.9)
--- NOTE | 2025-07-30 10:53 | P.IMHP_ITS ---
Assessment and Plan Assessment and plan (1) Acute hypoxemic respiratory failure: Problem comment: - 2/2 R sided PNA - Ceftriaxone, Doxycycline, supplemental oxygen and taper as tolerated - prn nebs, RT referral Status: Acute (2) Pneumonia: Problem comment: - abx per above Status: Acute (3) Pulmonary embolism: Problem comment: - remotely, on Xarelto Status: Acute Plan - per above - updated bedside, questions answered - Xarelto for ppx Hospitalist- H&P: HPI History of Present Illness Date Seen: 07/30/25 Chief complaint: Cough Narrative: Arnel Ng is a 70 year old male who presented to the ER today with his for concerns of shortness of breath and cough. Symptoms started overnight with a coarse cough and dyspnea. History of head and neck cancer, post radiation. As a result, he typically has quite a bit of secretions, which have worsened in the last 24 hours. He had 1 episode of hemoptysis. He is anticoagulated on Xarelto for history of PE, has not missed any doses. No chest pain. No rhinorrhea, no documented fevers. No known sick contacts. No recent travel. ER course and findings: - Upon presentation to the emergency room, he was 80% on room air - right middle and lower lobe pneumonia on chest x-ray - white count 10.7 with PMN predominance, lactate 2.0, improved to 1.0 after IV fluid resuscitation - Reassuring electrolytes and LFTs - given ceftriaxone and doxycycline, in addition to IV fluids Sumanth is admitted to the hospital for acute hypoxic respiratory failure in the setting of pneumonia. Histories updated below, Dr. Pennington is PCP at [facility]. Review of Systems Status of ROS: Reports: 10 or more systems reviewed and unremarkable except as noted in History and below Medical Decision Making Medical Decision Making Code Status: Full Has patient completed a Health Care Directive: No During This Stay, Who Would You Like To Make Decisions For You In The Event You Are Unable To Make Them For Yourself?: [facility] Medical History (Updated 07/30/25 @ 15:44 by Carmen Goins MD) Prostate cancer ?C61 - Malignant neoplasm of prostate (ICD-10) Obstructive sleep apnea ?G47.33 - Obstructive sleep apnea (adult) (pediatric) (ICD-10) Gallstone pancreatitis ?K85.10 - Biliary acute pancreatitis without necrosis or infection (ICD-10) Dysfunctional gallbladder ?K82.8 - Other specified diseases of gallbladder (ICD-10) Ehrlichiosis (~2016) ?A77.40 - Ehrlichiosis, unspecified (ICD-10) 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 - Personal history of malignant neoplasm of other sites of lip, oral cavity, and pharynx (ICD-10) Colon polyp ?K63.5 - Polyp of colon (ICD-10) Dermatographic urticaria ?L50.3 - Dermatographic urticaria (ICD-10) Pulmonary embolism ?I26.99 - Other pulmonary embolism without acute cor pulmonale (ICD-10) Chronic anticoagulation ?Z79.01 - 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 (ICD-10) Hypothyroid ?E03.9 - Hypothyroidism, unspecified (ICD-10) Obesity ?E66.9 - Obesity, unspecified (ICD-10) Chronic hypercapnic respiratory failure ?J96.12 - Chronic respiratory failure with hypercapnia (ICD-10) Surgical History S/P tonsillectomy and adenoidectomy ?Z90.89 - Acquired absence of other organs (ICD-10) H/O parotidectomy ?Z90.49 - Acquired absence of other specified parts of digestive tract (ICD- 10) H/O umbilical hernia repair ?Z98.890 - Other specified postprocedural states (ICD-10) ?Z87.19 - Personal history of other diseases of the digestive system (ICD-10) H/O colonoscopy ?Z98.890 - Other specified postprocedural states (ICD-10) Social History (Updated 07/30/25 @ 15:35 by Carmen Goins MD) Narrative: Lives with in [place]. Nonsmoker, rare social ETOH. Full code. What is your current living situation?: I presently have a place to live Problems where you live: no known problems Problems where you live details: n/a In the past 12 months, utilities in danger of being shut off: no In past 12 months, lack of transportation kept you from medical appts, meetings, work, or getting things needed for daily living: no In the past 12 mos, have been you worried that your food would run out before you had money to buy more?: never true In the past 12 mos, the food you bought just didn't last and you didn't have money to buy more?: never true Highest level of school completed/degree received: 12th grade, no diploma Smoking Status: Never smoker Do you use any of these nicotine containing products: None Second hand tobacco smoke exposure: No How often do you have a drink containing alcohol: monthly or less How many standard drinks containing alcohol do you have on a typical day: 1 or 2 How often do you have six or more drinks on one occasion: Never AUDIT-C Alcohol total score: 1 Non-prescribed substance use: denies use Caffeine: Yes (2c coffee daily) How often does anyone, including family, friends and others, physically hurt you : never How often does anyone, including family, friends and others, insult or talk down to you: never How often does anyone, including family, friends and others, threaten you with harm: never How often does anyone, including family, friends and others, scream or curse at you: never service: No Meds Home Medications and Allergies Home Medications ?Medication ?Instructions ?Recorded ?Confirmed ?Type albuterol sulfate 90 mcg/actuation 2 puff inhalation Q 4-6H PRN 10/01/23 07/30/25 History aerosol inhaler levothyroxine 175 mcg tablet 175 mcg PO QAM 10/01/23 1 09/30/24 History rivaroxaban 20 mg tablet (Xarelto) 20 mg PO QPM 07/30/25 History Allergies Allergy/AdvReac Type Severity Reaction Status Date / Time No Known Drug Allergies Allergy Verified 07/30/25 07:19 Exam Narrative: Exam Narrative: GEN: Alert and oriented, answering questions appropriately HEENT: Scarring from surgery/radiation L cheek, EOMIs bilaterally, no scleral icterus CV: RRR, No concerning murmurs R: No wheezing, mild rhonchi right base Ext: wwp, no concerning edema Skin: No concerning skin lesions or rashes on exposed skin Neuro: Nonfocal Psych: Appropriate Const: Vital Signs, click to edit/add: Vital Signs - 24 hr 07/30/25 07:20 07/30/25 07:20 07/30/25 08:22 Temperature 98.4 F Pulse Rate 112 H Pulse Rate [Pulse Oximeter] 115 H Respiratory Rate 24 Blood Pressure Blood Pressure [Ri ght Upper Arm] 114/84 Pulse Oximetry 84 L 80 L 91 Oxygen Delivery Me thod Room Air Room Air OxyMask 07/30/25 08:30 07/30/25 08:31 07/30/25 08:45 Temperature Pulse Rate 112 H 113 H 108 H Pulse Rate [Pulse Oximeter] Respiratory Rate 24 Blood Pressure 116/63 Blood Pressure [Ri ght Upper Arm] Pulse Oximetry 88 91 89 Oxygen Delivery Me thod OxyMask OxyMask OxyMask 07/30/25 09:00 07/30/25 09:01 07/30/25 09:15 Temperature Pulse Rate 107 H 104 H 95 Pulse Rate [Pulse Oximeter] Respiratory Rate 22 Blood Pressure 130/61 Blood Pressure [Ri ght Upper Arm] Pulse Oximetry 90 90 91 Oxygen Delivery Me thod OxyMask OxyMask OxyMask 07/30/25 09:30 07/30/25 09:32 Temperature Pulse Rate 87 Pulse Rate [Pulse Oximeter] Respiratory Rate Blood Pressure 102/58 L Blood Pressure [Ri ght Upper Arm] Pulse Oximetry 91 Oxygen Delivery Me thod OxyMask OxyMask Hospitalist - H&P: Result Labs Labs: Short CBC 07/30/25 Range/Units 08:00 WBC 10.75 (4.50-11.00) K/uL Hgb 16.3 (13.5-17.5) gm/dL Hct 51.4 (37.0-53.0) % Plt Count 194 (140-440) K/uL BMP 07/30/25 08:00 Sodium 136 Potassium 3.7 Chloride 100 Carbon Dioxide 29 BUN 18 Creatinine 0.8 Glucose 163 H Calcium 8.8 Liver Function 07/30/25 Range/Units 08:00 Total Bilirubin 1.2 (0.1-1.5) mg/dL AST 31 (12-35) U/L ALT 23 (4-50) U/L Alkaline Phosphatase 69 (40-150) U/L Albumin 4.2 (3.3-5.0) g/dL
[2025-07-30] MEDS: RIVAROXABAN 10 MG TABLET 20 MG PO (17:43)
[2025-07-30] MEDS: DOXYCYCLINE HYCLATE 100 MG PO (20:50)
[2025-07-31 03:00] VITALS: BP 98/60; PULSE 77; RESP 20; TEMP 36.6; O2SAT 90
--- NOTE | 2025-07-31 05:56 | PC.NURSE ---
End of shift report :?VSS. Afebrile. When pt is?awake?he was on 1.5 L O2 via NC?to maintain O2 sats above 90% per MD order. Pt had 3L O2 bled into his?CPAP when sleeping to keep O2 sats above 90%, at baseline per the pt he?bleeds in 2.5 L into his CPAP. Rates his chronic back pain a 3/10 this?shift?which pt states is?tolerable. Pt is noted to?utilize?the incentive?spirometer?frequently?when awake. Pt denies SOB.?Pt ambulated?ind?in?the room. Call light within reach.??
[2025-07-31] MEDS: LEVOTHYROXINE 75 MCG TABLET PO (06:51)
[2025-07-31 07:22] LABS: HCO3 VBG 33 mmol/L (21-28); PCO2 VBG 57 mmHG (40-50); PO2 VBG 38.7 mmHG (25-47); pH VBG 7.364 (7.32-7.43)
[2025-07-31 07:27] LABS: Hematocrit* 43.8 % (37.0-53.0); Hemoglobin* 13.6 gm/dL (13.5-17.5); Immature Granulocytes Pct Auto 1.5 %; Mean Corpuscular HGB Conc 31 gm/dL (32-36); Mean Corpuscular Hemoglobin 29 pg (26-34); Mean Corpuscular Volume 94 fL (80-100); RDW Coefficient of Variation % 13.9 % (11.5-15.5); Red Blood Count* 4.68 m/uL (4.30-5.90); White Blood Count* 15.74 K/uL (4.50-11.00)
[2025-07-31 07:36] LABS: Immature Granulocytes Abs Auto 0.20 K/uL (0.00-0.30); Lymphocytes Absolute Auto 1.00 K/uL (0.90-2.90); Slide Review Reflex No
[2025-07-31 07:52] LABS: Albumin* 3.2 g/dL (3.3-5.0); Chloride* 96 mmol/L (96-114); Potassium* 4.2 mmol/L (3.6-5.1); Sodium* 135 mmol/L (135-149)
[2025-07-31 07:54] LABS: Alanine Aminotransferase* 73 U/L (4-50); Alkaline Phosphatase* 47 U/L (40-150); Anion Gap 6 mEq/L (7-15); Aspartate Amino Transferase* 59 U/L (12-35); Bilirubin Total* 1.0 mg/dL (0.1-1.5); Blood Urea Nitrogen* 22 mg/dL (7-30); Carbon Dioxide* 33 mmol/L (20-32); Creatinine* 0.7 mg/dL (0.5-1.5); Est. Creatinine Clearance* 77.60; Estimated Glomerular Filt Rate 100 ml/min; Total Protein* 5.8 g/dL (6.0-8.3)
[2025-07-31 07:55] LABS: Calcium* 8.1 mg/dL (8.4-10.6); Glucose* 111 mg/dL (60-115)
[2025-07-31 08:07] VITALS: BP 98/57; PULSE 73; RESP 20; TEMP 36.7; O2SAT 91
[2025-07-31] MEDS: DOXYCYCLINE HYCLATE 100 MG PO (09:09)
[2025-07-31] MEDS: LEVOTHYROXINE 100 MCG TABLET PO (09:09)
[2025-07-31] MEDS: cefTRIAXone 1 GM in 0.9 % SODIUM CHLORIDE Mini-bag 100 ML IVPB (09:10)
--- NOTE | 2025-07-31 09:44 | P.DS_ITS ---
DS: Providers Provider Date Seen: 07/31/25 Date of admission: 07/30/25 09:21 Primary care physician: David Pennington MD Admitting Clinician: Carmen Goins MD Consults: PT, OT, RT Attending Physician on discharge: Carmen Goins MD Date of Discharge: 07/31/25 DS: Diagnosis Discharge Diagnosis (1) Acute hypoxemic respiratory failure: Status: Acute Problem details: - 2/2 R sided PNA - Ceftriaxone, Doxycycline, supplemental oxygen and taper as tolerated - prn nebs, RT referral (2) Pneumonia: Status: Acute Problem details: - abx per above (3) Pulmonary embolism: Status: Acute Problem details: - remotely, on Xarelto (4) History of parotid cancer: Status: Acute Problem details: - Left, 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 He was treated with ceftriaxone and doxycycline, was able to transition off of supplemental oxygen sooner than expected. Noted to have mild leukocytosis, mildly elevated AST and ALT without abdominal pain or GI symptoms. No tachycardia, intermittently low blood pressures, baseline for him without lightheadedness or dizziness. Tolerated po intake. Comorbidities noted, stable. Seen by therapies with no needs identified. On day of discharge, he was able to ambulate without symptoms or supplemental oxygen and requesting discharge home with . He has follow-up scheduled with his PCP later this month. Status at Discharge Functional status at discharge: independent ambulation Overall status at discharge: patient is progressing back to baseline Time Spent with Patient Time attestation: Total time spent providing and/or coordinating discharge services: Time spent: Greater than 30 minutes Specific discharge activities: Med rec, patient and updates/education Exam Narrative: Exam Narrative: GEN: Alert and oriented, comfortable in be HEENT: Facial changes from surgery/radiation, normal external ears, EOMIs bilaterally, no scleral icterus CV: RRR, No concerning murmurs R: No wheezing, mild bibasilar rhonchi Ext: wwp, no concerning edema Skin: No concerning skin lesions or rashes on exposed skin Neuro: Nonfocal Psych: Appropriate Const: Vital Signs, click to edit/add: Vital Signs - 24 hr 07/30/25 10:53 07/30/25 10:56 07/30/25 16:06 Temperature 98.7 F Pulse Rate [Left R adial] 96 Pulse Rate [Right Pulse Oximeter] Respiratory Rate 24 24 20 Blood Pressure [Le ft Arm] 100/59 L Pulse Oximetry 90 90 94 Oxygen Delivery Me thod OxyMask OxyMask OxyMask Oxygen Flow Rate 3 3 3 07/30/25 16:06 07/30/25 18:44 07/30/25 19:00 Temperature 98.1 F 98.2 F Pulse Rate [Left R adial] 93 95 Pulse Rate [Right Pulse Oximeter] Respiratory Rate 20 18 Blood Pressure [Le ft Arm] 112/70 105/55 L Pulse Oximetry 94 93 94 Oxygen Delivery Me thod OxyMask Nasal Cannula Nasal Cannula Oxygen Flow Rate 3 2 2 07/30/25 20:21 07/30/25 21:00 07/30/25 23:00 Temperature 98.5 F Pulse Rate [Left R adial] Pulse Rate [Right Pulse Oximeter] Respiratory Rate 18 20 Blood Pressure [Le ft Arm] 105/61 Pulse Oximetry 91 91 Oxygen Delivery Me thod Nasal Cannula CPAP Oxygen Flow Rate 1.5 3 07/30/25 23:00 07/31/25 03:00 07/31/25 08:07 Temperature 97.8 F 98.1 F Pulse Rate [Left R adial] Pulse Rate [Right Pulse Oximeter] 77 73 Respiratory Rate 20 20 20 Blood Pressure [Le ft Arm] 98/60 98/57 L Pulse Oximetry 91 90 91 Oxygen Delivery Me thod CPAP CPAP Room Air Oxygen Flow Rate 1.5 3 07/31/25 08:07 07/31/25 08:07 Temperature Pulse Rate [Left R adial] Pulse Rate [Right Pulse Oximeter] 73 Respiratory Rate 20 20 Blood Pressure [Le ft Arm] Pulse Oximetry 91 Oxygen Delivery Me thod Room Air Oxygen Flow Rate DS: Data Data Completed and Pending Completed studies during hospitalization: Procedures Introduction of Other Gas into Respiratory Tract, Via Natural or Artificial Opening (10/02/23) Labs on day of discharge: Labs from last 24 hours 07/31/25 07/30/25 06:30 09:55 WBC 15.74 H RBC 4.68 Hgb 13.6 Hct 43.8 MCV 94 MCH 29 MCHC 31 L RDW Coeff of Irma 13.9 Plt Count 166 Neut % (Auto) 86.0 H Lymph % (Auto) 6.3 L Braxton % (Auto) 5.6 Eos % (Auto) 0.3 Baso % (Auto) 0.3 Neut # (Auto) 13.50 H Lymph # (Auto) 1.00 Braxton # (Auto) 0.90 Eos # (Auto) 0.00 Baso # (Auto) 0.00 Abs Immat Gran (auto) 0.20 Imm/Tot Granulo (auto) 1.5 VBG pH 7.364 VBG pCO2 57 H VBG pO2 38.7 VBG HCO3 33 H Sodium 135 Potassium 4.2 Chloride 96 Carbon Dioxide 33 H Anion Gap 6 L BUN 22 Creatinine 0.7 Estimated Creat Clear 77.60 Estimated GFR 100 Glucose 111 Lactate 1.0 Calcium 8.1 L Total Bilirubin 1.0 AST 59 H ALT 73 H Alkaline Phosphatase 47 Total Protein 5.8 L Albumin 3.2 L Preliminary micro results at discharge 07/30/25 08:20 Blood Culture - Preliminary Blood NO GROWTH AFTER 24 HOURS 07/30/25 08:00 Blood Culture - Preliminary Blood NO GROWTH AFTER 24 HOURS Discharge Plan Discharge Disposition: Home, Self-Care Date of Admission: 07/30/25 09:21 Attending Provider on Discharge: Carmen Goins Primary Care Provider: David Pennington Condition: Improved Anticipated Discharge Date/Time: 07/31/25 09:40 Discharge Medications: New doxycycline hyclate 100 mg Tablet 100 mg PO BID Qty: 14 0RF Continued albuterol sulfate 90 mcg/actuation HFA aerosol inhaler 2 puff INHALATION Q4-6H PRN levothyroxine 175 mcg tablet 175 mcg PO QAM Xarelto 20 mg tablet 20 mg PO QPM Discharge Orders: Discharge Order (Routine); Ordered 07/31/25 Ordered By: Carmen Goins Patient Education: Doxycycline (By mouth) Additional Instructions: Call Dr. Pennington's office and ask if he can add a liver function panel to your labs on 08/11 ,everything else that he's checking would be good for your followup appointment. One week of Doxycycline sent to [facility]. Continue IS 4-5 times/day at home. Oxygen as needed. Follow Up Appointments: David Pennington MD [Primary Care Provider, Family Practice] Referral Note: keep appt on 08/18 as scheduled Forms: [facility] Info Instructions
--- NOTE | 2025-07-31 11:36 | PC.NURSE ---
Discharge: Patient pleasant and cooperative. Patient vitally stable, lungs with crackles but also diminished, BS WNL, IV removed, catheter intact. Patient taken of oxygen, with sats as low as 88% on room air. Patient ambulated the henry and declined feeling short of breath. Patient tolerating regular diet and urinating well. Patient denies pain. Patient signed belongings sheet and discharge form. Patient had no further questions regarding discharge. Patient left the floor by foot with and belongings at 1047.
== END 2025-07-31 10:47 | disposition home or self-care (01) | DRG 193 ==
LOC: ED 08:40 → MEDSURG 09:21
PROVIDERS: Admitting Provider Family Medicine; Emergency Provider Emergency Medicine; PCP Family Medicine; Visit Provider Family Medicine
DX: J18.9 Pneumonia, unspecified organism (principal); J96.01 Acute respiratory failure with hypoxia; E03.9 Hypothyroidism, unspecified; G47.33 Obstructive sleep apnea (adult) (pediatric); Z79.01 Long term (current) use of anticoagulants; Z85.818 Personal history of malignant neoplasm of other sites of lip, oral cavity, and pharynx; Z79.899 Other long term (current) drug therapy; Z86.711 Personal history of pulmonary embolism
CPT/HCPCS: 36415; 71046; 80053; 82803; 83605; 83880; 84145; 84484; 85025; 87040; 87631; 93005; 97161; 97165; 99285; 99291; A9270; J0696; J2270; J7030